=== PATIENT | male | born 1950 | race Caucasian/White ===

== ENCOUNTER 2017-08-07 18:07 | Observation (INO) | payer MEDICARE, OTHER, SELFPAY ==
[2017-08-07 18:10] VITALS: BP 164/72; PULSE 73; RESP 18; TEMP 37; O2SAT 98; BMI 38.7
--- NOTE | 2017-08-07 19:00 | CT_ITS ---
STUDY: CT BRAIN WITHOUT CONTRAST REASON FOR EXAM: Male, 67 years old. Fall. RADIATION DOSAGE (If Supplied By Facility): CTDIvol = ( 44.99 ) mGy, DLP = ( 880.47 ) mGycm TECHNIQUE: Transaxial CT imaging of the brain was performed without administration of intravenous contrast material. Individualized dose optimization techniques were used for this CT. COMPARISON: 07/09/2016. FINDINGS: Normal soft tissue structures. Normal calvarium. There is mild cerebral atrophy with widening of the extra-axial spaces and ventricular dilatation. There are areas of decreased attenuation within the white matter tracts of the supratentorial brain, consistent with microvascular disease changes. Normal basal ganglia and thalami. Normal brainstem. There is mild cerebellar atrophy. There is no intracranial hemorrhage. There are no findings of an acute ischemic infarction. Normal visualized paranasal sinuses. CT/Brain/Head without Contrast IMPRESSION: No acute abnormality. Mild atrophy and White matter disease. Electronically Signed: Ravin Torres MD at 19:46 EDT , Service support ,
--- NOTE | 2017-08-07 19:35 | RAD_ITS ---
STUDY: X-RAY - RIGHT KNEE REASON FOR EXAM: Male, 67 years old. Pain. Fall. TECHNIQUE: 3 view(s) of the knee. COMPARISON: None. FINDINGS: Normal visualized distal femur. Normal visualized proximal tibia and fibula. Normal proximal tibiofibular articulation. There is no demonstrated fracture. There is a total knee arthroplasty with grossly satisfactory appearance. The soft tissue structures are unremarkable. RAD/Knee 3 Views IMPRESSION: No acute fracture or dislocation. Electronically Signed: Ravin Torres MD at 20:01 EDT , Service support ,
[2017-08-07] MEDS: Diphth,Pertuss(Acell),Tet Vac 0.5 ML Vial IM (19:50)
[2017-08-07 21:41] VITALS: BP 140/82; PULSE 77; RESP 18; O2SAT 95
[2017-08-07 23:28] VITALS: BP 135/95; PULSE 75; RESP 18; O2SAT 94
[2017-08-07 23:29] VITALS: BP 135/95; PULSE 75; RESP 18; O2SAT 94
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
--- NOTE | 2017-08-07 23:45 | EKG12_ITS ---
Test Reason : AM EKG Blood Pressure : / mmHG Vent. Rate : 071 BPM Atrial Rate : 071 BPM P-R Int : 196 ms QRS Dur : 116 ms QT Int : 418 ms P-R-T Axes : 056 -37 076 degrees QTc Int : 454 ms Normal sinus rhythm Left axis deviation Left ventricular hypertrophy with QRS widening and repolarization abnormality Abnormal ECG When compared with ECG of 09-APR-2016 17:35, No significant change was found Confirmed by FLYNN CHRISTIANSEN, ELISA ([id number]), clinical editor BRIT CLEMENS ([id number]) on 08/21/2017 2:21:36 PM Referred By: SHANELLE Confirmed By:ELISA PRUETT MD
[2017-08-08] VITALS (12 sets, daily range): BP systolic 107–138; BP diastolic 72–86; PULSE 63–97; RESP 16–20; TEMP 36.4–36.9; O2SAT 84–98; BMI 41.1; BMI 41.2
[2017-08-08 00:22] LABS: Absolute Lymphocyte Count 2.83 X10^3/ul (0.83-4.51); Basophil# 0.03 X10^3/uL; Basophil% 0.3 % (0-1); Eosinophils% 2.7 % (0-5); Hematocrit 40.8 % (40-54); Hemoglobin 13.6 g/dl (13.0-16.5); Lymphocyte # 2.83 X10^3/ul (4.0); Mean Corp Hgb Conc 33.3 g/gl (32-36); Mean Corpuscular Hgb 28.4 pg (27.0-32.0); Mean Corpuscular Volume 85.2 fL (80-94); Monocyte# 1.14 X10^3/uL; Monocyte% 10.1 % (0-10); Neutrophil # 7.01 X10^3/uL (2.7-7.7); Neutrophil % 61.8 % (47-70); Platelet Count 230 K/mm3 (150-450); RBC Distribution Width CV 13.1 % (11.6-14.6); RBC Distribution Width SD 40.6 fl (35.1-43.9); Red Blood Count 4.79 M/mm3 (4.6-6.2); White Blood Count 11.3 K/mm3 (4.4-11.0)
--- NOTE | 2017-08-08 00:22 | CT_ITS ---
STUDY: CT CERVICAL SPINE WITHOUT CONTRAST REASON FOR EXAM: Male, 67 years old. Fell and trauma to the head RADIATION DOSAGE (If Supplied By Facility): CTDIvol = ( 35.12 ) mGy, DLP = ( 765.32 ) mGycm TECHNIQUE: High resolution transaxial imaging was performed without contrast material. Sagittal and coronal images were reconstructed. Individualized dose optimization techniques were used for this CT. COMPARISON: None FINDINGS: Straightening and reversal of normal cervical lordotic curvature. Mild anterior wedging of the cervical vertebra. There is anterior bridging osteophytes noted in the cervical spine. Disc space narrowing and partial fusion at multiple levels. Endplate degenerative changes at all levels. Uncovertebral joint and facet joint degenerative changes with multilevel neural foraminal narrowing including C3-C4, C4-C5, C5-C6 and C6-C7 levels. The atlantooccipital joints are within normal limits. Atlantodental index is within normal limits. No definite evidence of a skull base fractures. Partial opacification of the mastoid air cells. The right upper lobe nodules noted which needs further assessment with chest CT. Left-sided nodular densities in the parotid gland likely intraparotid lymph nodes IMPRESSION: Cervical spondylotic changes. No definite evidence for acute cervical spine fractures. Right upper lobe nodule which can be assessed with chest CT on a nonemergent basis Electronically Signed: Gaurav Beal, at 8:29 EDT Tel , Service support , CT/Spine Cervical without Contras
[2017-08-08 00:24] LABS: POSITIVE COUNT NO; POSITIVE DIFFERENTIAL NO; POSITIVE MORPHOLOGY NO
[2017-08-08 00:28] LABS: Anion Gap 7 (5-15); BUN 17 mg/dL (7-18); BUN/Creat Ratio 22.1 RATIO (10-20); Calcium,Total 8.8 mg/dL (8.5-10.1); Chloride 102 mmol/L (98-107); Creatinine, Serum 0.77 mg/dL (0.70-1.30); EST Glomerular Filtration Rate 107 mL/min (>60); Est Glom Filt Rate - Afr Amer 129 mL/min (>60); Glucose 104 mg/dL (74-106); Potassium 3.2 mmol/L (3.5-5.1); Sodium Level 139 mmol/L (136-145)
--- NOTE | 2017-08-08 00:36 | ED.DCSUM_ITS ---
- ER Visit Summary Date of Service: 08/08/17 Chief Complaint: Fall History of Present Illness: The patient is a 67 M who presents after a fall that occurred today. Patient was helping his son work on his car when he tripped and fell forward. Patient hit his right ear on the axle of the car wheel. Patient denies any loss of consciousness. Patient also complains of pain in his right knee and right leg. Patient denies any paresthesias or weakness. Patient states he has a prior history of stroke in his right side is weak from that but he denies any new weakness. Patient is on Plavix from his stroke. Patient denies any hearing changes. Patient is unsure of his last tetanus. Physical Examination: Vital signs are stable. Patient is afebrile. Patient is in no acute distress. Cranial nerves II through XII are intact. There are no focal motor or sensory deficits noted. Skin is warm and dry. There is a 2 cm curvilinear laceration along the anterior aspect of the right external ear. There is a 3 cm Y-shaped laceration along the posterior aspect of the right external ear. There is a 2 cm linear laceration posterior to the left ear near the mastoid process. There is minimal gapping of the wound margins. There is moderate bleeding noted. Tympanic membrane is clear. Neck is supple. Trachea is midline. There is no cervical tenderness. There is a large abrasion over the right shoulder. There is also an abrasion over the anterior lateral aspect of the right knee. There is a hematoma of the right anterior lower leg. There is full range of motion of the upper and lower extremities. There are no obvious deformities noted. Heart was regular rate and rhythm. Lungs are clear and equal bilateral. There is good respiratory effort noted. The remaining physical exam is within normal limits. Test Results: CT scan of the brain was obtained. There is no acute intracranial abnormality. X-rays of the right knee were obtained. There is no fracture noted. Emergency Department Course and Treatment: The right ear was anesthetized 1% plain lidocaine via auricular block. The laceration on the anterior aspect of the right ear was closed with 3 simple interrupted #5-0 nylon sutures under sterile technique. The laceration on the posterior aspect of the right ear was closed with 4 simple interrupted #5-0 nylon sutures. The laceration over the mastoid process was closed with 2 simple interrupted #5-0 nylon sutures under sterile technique. Patient tolerated the procedure well. During laceration repair patient was complaining of a headache and stated he would feel better if he was admitted to the hospital. Case was discussed with the hospitalist. He will admit the patient for observation overnight due to his head injury and being on Plavix. Patient and family understood and were agreeable with the plan. All questions were answered. Disposition: Admit for observation Impression: Closed head injury, right ear laceration, headache This note was generated with [employer] dictation software. It may contain incorrect words, spelling, and punctuation that were not noted in review of the chart prior to signing ED Disposition - Plan for ED Patient: Disposition: Acute Care Hospital [facility] Chief Complaint: Fall Diagnosis: Closed head injury, Headache, Laceration of right ear
[2017-08-08] MEDS: 0.9% Normal Saline 1,000 ML 75 ML IV (00:45)
[2017-08-08 00:53] LABS: International Normalized Ratio 1.2; Prothrombin Time (Protime)PT. 15.6 SECONDS (11.7-14.9)
--- NOTE | 2017-08-08 08:11 | PCM.PN.HOSP ---
Patient Problems: Active and Suspected Problems Closed head injury (Acute) Mechanical trip and fall (Acute) Laceration of left ear (Acute) Headache (Acute) Laceration of right ear (Acute) Subjective: Patient is a 67-year-old gentleman with previous history of left thalamic ischemic stroke with residual right leg weakness presented to the emergency department following a fall sustaining R ear laceration which had to be sutured in the emergency department Objective: GENERAL: cooperative HEENT: Head arrived in dressing for his right ear laceration NECK; supple, normal thyroid, CHEST: Clear to auscultation bilaterally, HEART: Regular S1 S2, no audible murmurs ABDOMEN: soft, non-tender, normoactive bowel sounds, RECTAL: deferred EXTREMITIES: No edema, no clubbing, no cyanosis. SOCIAL SERVICES COUNSELOR: Awake, oriented place and person SKIN: R ear laceration Vitals/I&O's: Vital Signs Temp Pulse Resp BP Pulse Ox 98.5 F 97 20 H 135/81 H 94 08/08/17 08:06 08/08/17 08:06 08/08/17 08:06 08/08/17 08:06 08/08/17 08:06 Oxygen Flow Rate (L/min) 2 Oxygen Delivery Method Nasal Cannula Weight: 130.181 kg Body Mass Index (BMI) 41.1 Intake and Output for Last 24 Hours 08/06/17 08/07/17 08/08/17 23:59 23:59 23:59 Intake Total 723 / 723 Output Total 125 / 125 Balance 598 / 598 Laboratory Results 08/08/17 00:00: WBC 11.3 H, RBC 4.79, Hgb 13.6, Hct 40.8, MCV 85.2, MCH 28.4, MCHC 33.3, RDW 13.1, RDW Differential 40.6, Plt Count 230, MPV 10.0, Immature Gran % (Auto) 0.100, Neut % (Auto) 61.8, Lymph % (Auto) 25.0, [place] % (Auto) 10.1 H, Eos % (Auto) 2.7, Baso % (Auto) 0.3, Absolute Neuts (auto) 7.0, Absolute Lymphs (auto) 2.83, Total Counted Not Reportable 08/08/17 00:00: Sodium 139, Potassium 3.2 L, Chloride 102, Carbon Dioxide 30.0, Anion Gap 7, BUN 17, Creatinine 0.77, Estim Creat Clear Calc 73.00, Est GFR (MDRD) Af Amer 129, Est GFR (MDRD) Non-Af 107, BUN/Creatinine Ratio 22.1 H, Glucose 104, Calcium 8.8 08/08/17 00:00: PT 15.6 H, INR 1.2, APTT 33.0 Current Medications Atorvastatin Calcium (Lipitor) 80 mg PO QHS [facility] Bupropion HCl (Wellbutrin Tablets) 150 mg PO DAILY [facility] Carvedilol (Coreg) 12.5 mg PO BID [facility] Cholecalciferol (Vitamin D) 3,000 unit PO DAILY [facility] Hydrochlorothiazide (Hydrochlorothiazide) 12.5 mg PO DAILY [facility] Sodium Chloride () 1,000 mls @ 75 mls/hr IV .[id number] [facility] Last Admin: 08/08/17 00:45 Dose: 75 mls/hr Magnesium Hydroxide (Milk Of Magnesia) 30 ml PO DAILY PRN PRN PRN Reason: Constipation Morphine Sulfate () 1 - 2 mg IV Q4H PRN PRN PRN Reason: SEVERE PAIN (6-10/10) Multivitamins/Minerals (Multivitamin With Minerals) 1 tablet [facility] Ondansetron HCl (Zofran) 4 mg IV Q8H PRN PRN PRN Reason: Nausea Oxycodone HCl (Oxyir) 5 mg PO Q4H PRN PRN PRN Reason: Moderate Pain (pain scale 4-5) Polyethylene Glycol (Miralax) 17 gm PO DAILY [facility] Psyllium Hydrophilic Mucilloid (Metamucil) 1 packet PO DAILY PRN PRN PRN Reason: CONSTIPATION Senna/Docusate Sodium (Senokot-S, Malika-Colace) 2 tablet PO BID PRN PRN PRN Reason: Constipation Sodium Chloride () 5 - 30 ml IV UD PRN PRN Reason: SALINE FLUSH Zolpidem Tartrate (Ambien (Generic)) 5 mg PO QHS PRN PRN PRN Reason: INSOMNIA Medical Necessity - Tobacco Use Smoking Status: Current every day smoker Assessment/Plan Active and Suspected Problems Closed head injury (Acute) Mechanical trip and fall (Acute) Laceration of left ear (Acute) Headache (Acute) Laceration of right ear (Acute) Patient is a 67-year-old gentleman with previous history of left thalamic ischemic stroke with residual right leg weakness presented to the emergency department following a fall sustaining R ear laceration which had to be sutured in the emergency department 1. Falls secondary to mechanical fall with weight right ear laceration status post suturing in the ED admitted to regular nursing floor requested for PT and OT consult to psychotherapist social worker to assist with discharge planning 2. Left thalamic ischemic stroke with residual right leg weakness patient is on antiplatelet therapy with Plavix 3. Hypertension-blood pressure controlled, home medications continued with dose adjustment as needed 4. Depression with anxiety 5. Dyslipidemia-patient is on statin therapy, continued at home dose 6. History of bilateral TKR 7. Obesity with BMI of 41.2 weight loss advised 8. PTSD per history 9. DVT prophylaxis SCDs to the use of chemoprophylaxis on admission in view of his laceration
--- NOTE | 2017-08-08 09:42 | CASEMGMT ---
Social Work Note Face to face with the pt to discuss discharge planning. Introduced self and role at [facility]. The pt reports to live with his , who is to retire in a month, in a one-story home with 2 entry steps and handrails. DME consists of a walker, 3 canes, grab bars, and shower chair. Pt reports to be independent with ADL's and still drives. States that he exercises on his stationary bike and with resistance bands daily, but that he does not feel he does enough for leg strength. Pt does have a hx of stroke and was on the RU. Expresses frustration with them as he had [employer] at the time and states they did not cover any of that stay. Emotional support provided. [facility] [place] [facility] to [facility]. Inquire if he would be willing to go to SNF if recommended by PT/OT. Pt states he would prefer to go home, reports to have only had one fall in the last month. Educate pt to HHC and Outpatient therapy if recommended as well. Pt expresses interest in outpatient therapy and he and both state they had HHC in the past and too many services that were not helpful were included. They would like to await PT/OT evaluations and recommendations before continuing with discharge planning. Both made aware that SW is available. Plan: BALJIT Montano, JACKER, WATCH LEADER
[2017-08-08] MEDS: Multivitamins,Ther W-Minerals Tablet 1 TABLET PO ×2 (11:21→18:36)
[2017-08-08] MEDS: Polyethylene Glycol 3350 17 GM PACKET PO (11:23)
[2017-08-08] MEDS: Carvedilol 12.5 MG Tablet PO ×2 (11:23→22:31)
[2017-08-08] MEDS: HYDROCHLOROTHIAZIDE 12.5 MG CAPSULE PO (11:23)
--- NOTE | 2017-08-08 11:44 | CASEMGMT ---
Social Work Note PT/OT recommending home or outpatient therapy. Outpatient therapy order placed on chart for attending physician to sign and be sent home with pt at discharge if they elect to seek therapy. Physician notified. Celsa Montano, PROMOTIONS SPECIALIST, BUSINESS MANAGEMENT ASSOCIATE
--- NOTE | 2017-08-08 16:25 | NURSING ---
attempted to call Alis to clarify home medication wellbutrin. no answer and no voicemail option.
[2017-08-08] MEDS: Nystatin Powder 15gm Bottle 1 APPLIC TOPICAL (22:30)
[2017-08-08] MEDS: Atorvastatin Calcium 80 MG Tablet PO (22:31)
[2017-08-09 02:00] VITALS: PULSE 79
[2017-08-09 03:19] VITALS: BP 108/60; PULSE 61; RESP 16; TEMP 36.5; O2SAT 96
[2017-08-09 05:49] VITALS: PULSE 53
--- NOTE | 2017-08-09 07:29 | PCM.DC ---
- Discharge Diagnoses Current Active Problems: Current Active and Chronic Problems Closed head injury (Acute) Mechanical trip and fall (Acute) Laceration of left ear (Acute) Headache (Acute) Laceration of right ear (Acute) You will use the following diet at home:: Regular Your food should be the consistency of: Regular Discharge Activity: Return to Normal Activity Allergies/Adverse Reactions: Allergies lisinopril Adverse Reaction (Verified 08/07/17 18:09) Other ANXIETY/HOT FLASHES losartan Adverse Reaction (Verified 08/07/17 18:09) Other Anxiety/hot flashes Medications to take at Discharge Bupropion HCl 150 mg PO DAILY 04/09/16 Carvedilol [Coreg] 12.5 mg PO BID 04/09/16 Multivitamin with Minerals/Lut [Pub Multivitamin 50 Plus Tab] 1 each PO BID 04/09/16 Aspirin [Aspirin, Baby] 81 mg PO DAILY@0800 04/15/16 Atorvastatin Calcium [Lipitor] 80 mg PO QHS 02/17/17 Cholecalciferol (Vitamin D3) [Vitamin D3] 3,000 unit PO DAILY 02/17/17 Clopidogrel Bisulfate [Plavix] 75 mg PO DAILY 08/08/17 Hydrochlorothiazide 12.5 mg PO DAILY 08/08/17 Primary Care Physician: Marilin Gold MD [Primary Care Provider] - Please follow up with your Primary Care Physician in: in 4-5 days for removal of stitches Proposed Discharge Date: 08/09/17
--- NOTE | 2017-08-09 07:31 | PCM.DC.SUM ---
Discharge Date and Diagnosis - Problem List Patient Problems: Active and Suspected Problems Closed head injury (Acute) Mechanical trip and fall (Acute) Laceration of left ear (Acute) Headache (Acute) Laceration of right ear (Acute) Date of Admission: 08/08/17 Date of Discharge: 08/09/17 - Primary Discharge Diagnosis Active and Suspected Problems Closed head injury (Acute) Mechanical trip and fall (Acute) Laceration of left ear (Acute) Headache (Acute) Laceration of right ear (Acute) - Secondary Discharge Diagnosis Chronic Problems Hypertension (Chronic) PTSD (post-traumatic stress disorder) (Chronic) Anxiety and depression (Chronic) Acute ischemic stroke (Chronic) Obesity (BMI 30-39.9) (Chronic) Hospital Course and Treatment Imaging Results: Clinical Impression(s) from Imaging Studies Brain CT 08/07/17 19:00 IMPRESSION: No acute abnormality. Mild atrophy and White matter disease. Electronically Signed: Ravin Torres MD at 19:46 EDT , Service support , Knee X-Ray 08/07/17 19:35 IMPRESSION: No acute fracture or dislocation. Electronically Signed: Ravin Torres MD at 20:01 EDT , Service support , Cervical Spine CT 08/08/17 00:22 Operations: None Summary of Care Provided: Patient is a 67-year-old gentleman with previous history of left thalamic ischemic stroke with residual right leg weakness presented to the emergency department following a fall sustaining R ear laceration which had to be sutured in the emergency department 1. Falls secondary to mechanical fall with weight right ear laceration status post suturing in the ED admitted to regular nursing floor requested for PT and OT consult to social media analyst to assist with discharge planning patient was discharged home instructions given to you for him to follow-up with his primary care physician for stitches removal within 3-5 days 2. Left thalamic ischemic stroke with residual right leg weakness patient is on antiplatelet therapy with Plavix 3. Hypertension-blood pressure controlled, home medications continued with dose adjustment as needed 4. Depression with anxiety 5. Dyslipidemia-patient is on statin therapy, continued at home dose 6. History of bilateral TKR 7. Obesity with BMI of 41.2 weight loss advised 8. PTSD per history 9. DVT prophylaxis SCDs to the use of chemoprophylaxis on admission in view of his laceration Discharge Diet: No Restrictions Discharge Activity: Return to Normal Activity Home Medications: Medications to take at Discharge Bupropion HCl 150 mg PO DAILY 04/09/16 Carvedilol [Coreg] 12.5 mg PO BID 04/09/16 Multivitamin with Minerals/Lut [Pub Multivitamin 50 Plus Tab] 1 each PO BID 04/09/16 Aspirin [Aspirin, Baby] 81 mg PO DAILY@0800 04/15/16 Atorvastatin Calcium [Lipitor] 80 mg PO QHS 02/17/17 Cholecalciferol (Vitamin D3) [Vitamin D3] 3,000 unit PO DAILY 02/17/17 Clopidogrel Bisulfate [Plavix] 75 mg PO DAILY 08/08/17 Hydrochlorothiazide 12.5 mg PO DAILY 08/08/17 Primary Care Physician: Marilin Gold MD [Primary Care Provider] - Please follow up with your Primary Care Physician in: in 4-5 days for removal of stitches Disposition: Home Minutes spent on discharge:: 35 Patient Condition:: Stable Medical Necessity - Tobacco Use Smoking Status: Current every day smoker Meaningful Use Info Meaningful Use Diagnoses (Choose all that apply): None applicable Code Visit OBSV E&M: 30752 Observation care discharge
[2017-08-09 08:38] LABS: Anion Gap 5 (5-15); BUN 14 mg/dL (7-18); Calcium,Total 8.5 mg/dL (8.5-10.1); Chloride 104 mmol/L (98-107); Creatinine, Serum 0.78 mg/dL (0.70-1.30); EST Glomerular Filtration Rate 105 mL/min (>60); Est Glom Filt Rate - Afr Amer 127 mL/min (>60); Glucose 107 mg/dL (74-106); Potassium 3.8 mmol/L (3.5-5.1); Sodium Level 139 mmol/L (136-145)
[2017-08-09 09:19] VITALS: BP 107/72; PULSE 79; RESP 20; TEMP 36.6; O2SAT 98
[2017-08-09] MEDS: Multivitamins,Ther W-Minerals Tablet 1 TABLET PO (09:46)
[2017-08-09] MEDS: Nystatin Powder 15gm Bottle 1 APPLIC TOPICAL (09:46)
[2017-08-09] MEDS: Carvedilol 12.5 MG Tablet PO (09:46)
[2017-08-09] MEDS: HYDROCHLOROTHIAZIDE 12.5 MG CAPSULE PO (09:47)
== END 2017-08-09 10:25 | disposition home or self-care (01) ==
LOC: ED 19:46 → MS3 23:56
PROVIDERS: Admitting Provider Internal Medicine; Emergency Provider Emergency Medicine; Family Provider Family Medicine; PCP Family Medicine; Visit Provider Internal Medicine
DX: S09.8XXA Other specified injuries of head, initial encounter (principal); W01.198A Fall on same level from slipping, tripping and stumbling with subsequent striking against other object, initial encounter; Y93.89 Activity, other specified; Y92.9 Unspecified place or not applicable; S01.312A Laceration without foreign body of left ear, initial encounter; S01.311A Laceration without foreign body of right ear, initial encounter; Z23 Encounter for immunization; I69.351 Hemiplegia and hemiparesis following cerebral infarction affecting right dominant side; Z79.02 Long term (current) use of antithrombotics/antiplatelets; I10 Essential (primary) hypertension; E66.9 Obesity, unspecified; Z68.41 Body mass index [BMI] 40.0-44.9, adult; Z71.3 Dietary counseling and surveillance; F32.9 Major depressive disorder, single episode, unspecified; F41.9 Anxiety disorder, unspecified; F43.12 Post-traumatic stress disorder, chronic; S40.011A Contusion of right shoulder, initial encounter; S80.01XA Contusion of right knee, initial encounter; F17.210 Nicotine dependence, cigarettes, uncomplicated
CPT/HCPCS: 12014; 36415; 70450; 72125; 73562; 80048; 85025; 85610; 85730; 90471; 90715; 93005; 96360; 96361; 97161; 97166; 97802; 99218; 99283; 99406; J7030; A4216; G0378

== ENCOUNTER 2017-10-07 11:13 | Emergency (ER) | payer MEDICARE, SELFPAY ==
[2017-10-07 11:14] VITALS: BP 122/65; PULSE 79; RESP 18; TEMP 36.6; O2SAT 94; BMI 42.3
--- NOTE | 2017-10-07 11:25 | RAD_ITS ---
STUDY: X-RAY CHEST REASON FOR EXAM: Male, 67 years old. Cough. History of bronchitis. TECHNIQUE: PA and lateral views of the chest on 3 films. COMPARISON: [facility] upright chest x-ray April 09, 2016. FINDINGS: Again seen is ill-defined, mixed interstitial alveolar density in the medial lung bases, reflecting inflammatory change/infection with possible superimposed atelectasis versus localized pulmonary vascular congestion. There is no demonstrated pleural abnormality. Normal size heart. Normal mediastinum and awa. Normal visualized upper lobe pulmonary vascular markings. There is stable mild atherosclerotic calcification of the aortic arch. There are stable multilevel degenerative changes of the visualized thoracic spine. Normal visualized ribs, clavicles, and shoulders. There is no demonstrated abnormality of the visualized soft tissue structures of the upper abdomen. RAD/Chest PA and Lateral IMPRESSION: Persistent/recurrent mixed interstitial and alveolar densities in the medial bilateral lung bases. Electronically Signed: Ghulam Vences MD at 12:26 EDT , Service support ,
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
--- NOTE | 2017-10-07 13:00 | ED.DEP ---
ED Disposition - Plan for ED Patient: Disposition: Home or Assisted Living Chief Complaint: Fall Instructions: ED Mechanical Fall, ED Abrasion, Acute Bronchitis Prescriptions: Azithromycin [Zithromax] 250 mg PO DAILY #4 tablet Referrals: Marilin Gold MD [Primary Care Provider] - 1 Week
[2017-10-07] MEDS: Azithromycin 250 MG Tablet 500 MG PO (13:12)
[2017-10-07 13:13] VITALS: BP 138/75; PULSE 72; RESP 20; O2SAT 94
[2017-10-07 13:16] VITALS: BP 138/75; PULSE 65; RESP 20; O2SAT 94
== END 2017-10-07 13:17 | disposition home or self-care (01) ==
PROVIDERS: Emergency Provider Emergency Medicine; Family Provider Family Medicine; PCP Family Medicine
DX: S30.811A Abrasion of abdominal wall, initial encounter (principal); W18.39XA Other fall on same level, initial encounter; Y93.9 Activity, unspecified; Y92.9 Unspecified place or not applicable; J40 Bronchitis, not specified as acute or chronic; E66.9 Obesity, unspecified; Z68.41 Body mass index [BMI] 40.0-44.9, adult; F43.10 Post-traumatic stress disorder, unspecified; F41.9 Anxiety disorder, unspecified; Z79.01 Long term (current) use of anticoagulants; Z86.73 Personal history of transient ischemic attack (TIA), and cerebral infarction without residual deficits; Z79.82 Long term (current) use of aspirin; Z79.899 Other long term (current) drug therapy; Z72.0 Tobacco use
CPT/HCPCS: 71046; 99282

== ENCOUNTER → 2019-03-29 14:26 | Outpatient (CLI) | payer MEDICARE, SELFPAY ==
--- NOTE | 2019-03-29 14:29 | CT_ITS ---
STUDY: CT CHEST WITH CONTRAST REASON FOR EXAM: Male, 68 years old. Pulmonary nodule follow-up RADIATION DOSAGE (If Supplied By Facility): CTDIvol = ( 18.25 ) mGy, DLP = ( 659.13 ) mGycm TECHNIQUE: Transaxial imaging was performed following intravenous administration of 100ML ISOVUE 370. Multiplanar coronal and sagittal images were reformatted. Individualized dose optimization techniques were used for this CT. COMPARISON: None. FINDINGS: 3 mm noncalcified smoothly marginated nodule in the posterior right upper lobe is evident on image 13. Similar density nodule in the upper portion of the left lower lobe on image 27 measures 2-3 mm. 3 mm nodule in the lateral right lower lobe is evident on image 54. Scattered areas of groundglass opacity (amorphous type) are identified in multiple pulmonary lobes with regional areas of lucency (mosaic attenuation). There is a granuloma (punctate) in the right upper lobe. No suspicious noncalcified pulmonary nodule or localized groundglass opacity. There is no demonstrated pleural abnormality. Heart is mildly enlarged. No pericardial thickening. There are calcifications of the coronary arteries. There are multiple small lymph nodes within the mediastinum, which are normal in size and morphology most compatible with reactive lymph hyperplasia. Normal hilar regions. Normal enhanced pulmonary arteries. There is atherosclerotic calcification of the aortic arch with tortuosity and elongation of the aortic arch and descending thoracic aorta. There are multi-level degenerative changes of the thoracic spine. Adrenal glands are not focally enlarged. Calcification in the left hepatic lobe is likely postinflammatory. CT/Chest WITH Contrast IMPRESSION: 1. Right upper, right lower and left lower lobe pulmonary nodules measuring up to 3 mm. Follow-up CT in one year if patient considered high risk (smoking history, known history of cancer) according to Fleischner Society recommendations. 2. Scattered groundglass opacities/mosaic attenuation can be associated with hypoventilatory status, edema or pneumonitis/bronchiolitis. Electronically Signed: Pavel Guidry MD ([place]) at 19:37 EST , Service support ,
[2019-03-29 14:51] LABS: CREATININE FINGERSTICK 0.8 mg/dL (0.70-1.30)
== END ==
PROVIDERS: Family Provider Family Medicine; PCP Family Medicine; Referring Provider Family Medicine; Visit Provider Family Medicine
DX: R91.1 Solitary pulmonary nodule (principal)
CPT/HCPCS: 71260; Q9967

== ENCOUNTER 2020-02-08 16:49 | Emergency (ER) | payer MEDICARE, SELFPAY ==
[2020-02-08 16:51] VITALS: BP 142/89; PULSE 81; RESP 17; TEMP 36.3; O2SAT 95; BMI 40.1
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
[2020-02-08 18:06] VITALS: BP 139/78; PULSE 81; RESP 16; O2SAT 99
== END 2020-02-08 18:06 | disposition home or self-care (01) ==
LOC: ED 17:16
PROVIDERS: Emergency Provider Emergency Medicine; PCP Family Medicine
DX: S61.210A Laceration without foreign body of right index finger without damage to nail, initial encounter (principal); W26.8XXA Contact with other sharp object(s), not elsewhere classified, initial encounter; Y93.9 Activity, unspecified; Y92.9 Unspecified place or not applicable; Y99.9 Unspecified external cause status; I10 Essential (primary) hypertension; Z79.82 Long term (current) use of aspirin; Z87.891 Personal history of nicotine dependence; Z86.73 Personal history of transient ischemic attack (TIA), and cerebral infarction without residual deficits
CPT/HCPCS: 12001; 99282

== ENCOUNTER 2020-06-19 09:00 | Outpatient (RCR) | payer MEDICARE, SELFPAY ==
[2020-06-19] MEDS: COVID-19 VACC, MRNA(PFIZER)/PF 30 MCG/0.3 ML SYRINGE IM (17:29)
[2020-07-10] MEDS: COVID-19 VACC, MRNA(PFIZER)/PF 30 MCG/0.3 ML SYRINGE IM (15:36)
== END 2020-09-18 23:59 ==
LOC: IMMUN 09:00
PROVIDERS: PCP Family Medicine; Visit Provider Family Medicine
DX: Z23 Encounter for immunization (principal)
CPT/HCPCS: 0001A; 0002A; 91300

== ENCOUNTER 2020-06-19 15:48 | Emergency (ER) | payer MEDICARE, SELFPAY ==
[2020-06-19 15:50] VITALS: BP 128/82; PULSE 58; RESP 18; TEMP 37.1; O2SAT 94; BMI 44.1
--- NOTE | 2020-06-19 16:15 | CT_ITS ---
STUDY: CT BRAIN WITHOUT CONTRAST REASON FOR EXAM: Male, 70 years old. Head trauma RADIATION DOSAGE (If Supplied By Facility): CTDIvol = ( 60.81 ) mGy, DLP = ( 2225.39 ) mGycm TECHNIQUE: Transaxial CT imaging of the brain was performed without administration of intravenous contrast material. Individualized dose optimization techniques were used for this CT. COMPARISON: 08/07/17 FINDINGS: There is no acute bleed or infarct. There are stable chronic ischemic and atrophic changes. The ventricles are normal in configuration. There is no hydrocephalus. The visualized paranasal sinuses are clear. The mastoid air cells are well aerated. There is no skull fracture. There is mild scalp soft tissue swelling in the right frontal region. CT/Brain/Head without Contrast IMPRESSION: Stable chronic ischemic and atrophic changes. No acute intracranial abnormality. Mild scalp soft tissue swelling in the right frontal region. Electronically Signed: Nele Somers MD at 17:06 EST Tel , Service support ,
--- NOTE | 2020-06-19 16:18 | ED.VISSUMM ---
- ER Visit Summary Date of Service: 06/19/20 Chief Complaint: Tripped and fell causing a head injury History of Present Illness: The patient is a 70 M history of heart murmur and prior stroke. He is on aspirin but no other blood thinners. Patient was walking down the sidewalk when he tripped and fell struck his right forehead on the sidewalk. Denies any LOC. No significant headache. No neck pain. No LOC. He also hit his left knee but says it does not hurt. He denies any other complaints. Said he felt fine prior to the fall. Physical Examination: Older male no acute distress vital signs stable afebrile. HEENT exam shows a right forehead moderate sized hematoma and abrasion. Superficial laceration right eyebrow. Most likely will not need to be sewn. Pupils round reactive light extra motions are intact. No other facial trauma. No scalp trauma. C-spine nontender. Trachea midline. Lungs clear to auscultation bilaterally. Heart regular rhythm no murmur. Chest were nontender. Abdomen soft nontender normal bowel sounds no peritoneal signs. Patient is moving all 4 extremities. Neurovascular intact. 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 Dorsi plantarflexion intact. He has a mild abrasion on his left knee but has full flexion-extension of both hips, knees ankle and feet. There is no shortening or rotation. His knee is not specifically tender. Back nontender. Neurologically is awake alert with no focal motor deficits. GCS of 15. NIH is 0. Test Results: CAT scan of the brain without contrast as read by the radiologist shows right forehead contusion. No skull fracture. No acute intracranial bleed. Chronic changes. This was read by the radiologist and reviewed by me. Reyes exam patient is doing well at 5:21 PM. Be discharged home. Emergency Department Course and Treatment: Older male tripped and fell has a right forehead moderate sized contusion which will need imaging. He has a mild abrasion of his left knee but has normal range of motion is not tender. Otherwise exam unremarkable. Treatment Plan: Head injury instructions. Tylenol for pain. Keep wounds clean. Disposition: discharge Impression: Acute fall with closed head injury Forehead hematoma and abrasion Left knee abrasion This note was generated with [employer] dictation software. It may contain incorrect words, spelling, and punctuation that were not noted in review of the chart prior to signing ED Disposition - Plan for ED Patient: Referrals: Marilin Gold MD [Primary Care Provider] -
--- NOTE | 2020-06-19 17:22 | ED.DEP ---
ED Disposition - Plan for ED Patient: Disposition: Home or Assisted Living Instructions: ED Head Injury (Adult) Referrals: Marilin Gold MD [Primary Care Provider] - 1 Week if not improving Additional Instructions: All for pain. Keep wounds clean and apply antibiotic ointment. Tylenol for pain. Follow head injury instructions if you get a severe headache, vomiting or not acting right you need to return emergency department for repeat evaluation.
== END 2020-06-19 18:01 | disposition home or self-care (01) ==
PROVIDERS: Emergency Provider Emergency Medicine; PCP Family Medicine
DX: S00.83XA Contusion of other part of head, initial encounter (principal); W01.0XXA Fall on same level from slipping, tripping and stumbling without subsequent striking against object, initial encounter; Y93.01 Activity, walking, marching and hiking; Y92.480 Sidewalk as the place of occurrence of the external cause; S00.81XA Abrasion of other part of head, initial encounter; S80.212A Abrasion, left knee, initial encounter; Z86.73 Personal history of transient ischemic attack (TIA), and cerebral infarction without residual deficits; Z79.82 Long term (current) use of aspirin
CPT/HCPCS: 70450; 99282

== ENCOUNTER 2020-06-21 09:50 | Emergency (ER) | payer MEDICARE, SELFPAY ==
[2020-06-21 09:51] VITALS: BP 151/71; PULSE 82; RESP 15; TEMP 36.2; O2SAT 93; BMI 38.4
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
== END 2020-06-21 11:35 | disposition home or self-care (01) ==
LOC: ED 10:42
PROVIDERS: Emergency Provider Emergency Medicine; PCP Family Medicine
DX: S00.83XA Contusion of other part of head, initial encounter (principal); W19.XXXA Unspecified fall, initial encounter; Z86.73 Personal history of transient ischemic attack (TIA), and cerebral infarction without residual deficits; Z87.891 Personal history of nicotine dependence
CPT/HCPCS: 99282

== ENCOUNTER 2021-08-27 13:29 | Outpatient (RCR) | payer MEDICARE, SELFPAY ==
[2021-08-27 13:45] VITALS: BP 118/58; PULSE 48; TEMP 36.5; BMI 41.3
--- NOTE | 2021-08-27 16:25 | PCM.WC.HP ---
History of Present Illness Date of Service: 08/27/21 Chief Complaint: Buttock pain and excoriation. History of Wound: 71 year old male presents with excoriation and pain of his right buttocks. Patient has decreased mobility, therefore he sits for long periods of time without off-loading. He walks with a cane or walker and will use a wheelchair if he is going out in public. He has a history of stroke in 2016 and bilateral knee replacements. He also has a history of PTSD. He does have some issues with urinary incontinence. His has been placing A&D ointment and ketoconazole onto the excoriated area. He denies fever, chills, nausea, vomiting, diarrhea. He states he has a good appetite. Progress of Wound: Bilateral buttocks are excoriated, no actual open wounds. Skin is pink with areas of slough. [facility] Home Medications Multivitamin 50 Plus 1 ea PO BID 04/09/16 [History Last Taken 08/07/17 09:00 1 tab] aspirin 81 mg PO DAILY@0800 04/15/16 [History Last Taken 08/07/17 09:00 81 mg] atorvastatin [Lipitor] 20 mg PO QHS 02/17/17 [History Last Taken 08/06/17 21:00 80 mg] cholecalciferol (vitamin D3) [Vitamin D3] 3,000 unit PO DAILY 02/17/17 [History Last Taken 08/07/17 09:00 3,000 units] hydrochlorothiazide 12.5 mg PO DAILY 08/08/17 [History Last Taken 08/07/17 09:00 12.5mg] bupropion HCl 150 mg PO DAILY 08/09/17 [History Last Taken Unknown] buspirone 5 mg PO DAILY 08/27/21 [History Last Taken Unknown] carvedilol 25 mg PO BID 08/27/21 [History Last Taken Unknown] tamsulosin 0.4 mg PO BID 08/27/21 [History Last Taken Unknown] Allergy/AdvReac Type Severity Reaction Status Date / Time lisinopril AdvReac Other Verified 06/21/20 09:53 losartan AdvReac Other Verified 06/21/20 09:53 Social History Smoking Status: Never smoker ROS Constitutional Constitutional: Denies fatigue, fever(s), frequent falls or headache(s) ENT HEENT: Reports none Cardiovascular Cardiovascular: Denies chest pain Respiratory/Chest Respiratory/Chest: Denies cough or difficulty clearing secretions Gastrointestinal Gastrointestinal: Denies abdominal pain Neurologic Neurologic: Reports abnormal gait; Denies confusion Vital Signs Vital Signs Vital Signs: 08/27/21 13:45 Temperature 97.7 F L Temperature Source Temporal Pulse Rate 48 L Blood Pressure 118/58 L Blood Pressure Mean 78 Blood Pressure Source Monitor Weight Weight: 280 lb Body Mass Index (BMI) 41.3 Physical Exam Const alert and no apparent distress General Appearance: cooperative Orientation / Consciousness: awake HEENT normocephalic Resp normal respiratory effort, normal air movement and clear to auscultation bilaterally Effort and Inspection: able to speak in complete sentences Cardio regular rate and regular rhythm GI normal to inspection, nondistended, normoactive bowel sounds, soft to palpation and non-tender Extremity normal capillary refill Skin Wound Narrative: Bilateral buttocks skin is pink, excoriated, there are no open wounds. The skin is irritated but intact. Neuro moves all extremities Psych mental status grossly normal Debridement Note Debridement Note No debridement was completed: No debridement was completed today Charges/Coding Visit Charges Office Visits / Consults: [id number] OV L3 Est Assessment/Plan Assessment/Plan (1) Excoriation of multiple sites of buttock: CODE(S): S30.810A - Abrasion of lower back and pelvis, initial encounter (2) Decreased mobility: CODE(S): R26.89 - Other abnormalities of gait and mobility (3) History of stroke: CODE(S): Z86.73 - Personal history of transient ischemic attack (TIA), and cerebral infarction without residual deficits PLAN: Patient was evaluated at the wound healing center today. There is no open wound present. He has pink excoriation of his bilateral buttocks. This is most likely from sitting for prolong periods of time and also having some urinary incontinence. Instructed him and his to wash area with soap and water daily, dry well and apply A&D ointment 1-2 times per day as a barrier cream. He is to follow up with his urologist to discuss his incontinence issues. Instructed patient that he should off load/change position and/or stand every 30 minutes while awake. Follow up on an as needed basis or if he develops an open wound.
== END 2021-08-27 14:09 | disposition home or self-care (01) ==
LOC: WC 13:29
PROVIDERS: PCP Family Medicine; Visit Provider Nurse Practitioner Family
DX: S30.810A Abrasion of lower back and pelvis, initial encounter (principal); R32 Unspecified urinary incontinence; R26.89 Other abnormalities of gait and mobility; Z79.82 Long term (current) use of aspirin; Z79.899 Other long term (current) drug therapy; Z86.73 Personal history of transient ischemic attack (TIA), and cerebral infarction without residual deficits; X58.XXXA Exposure to other specified factors, initial encounter
CPT/HCPCS: 99213; G0463

== ENCOUNTER 2022-01-13 13:58 | Outpatient (CLI) | payer MEDICARE, SELFPAY ==
[2022-01-13 18:24] LABS: Microalbumin,Random Urine < 5.0 mg/L (NO RANGE EST.)
[2022-01-13 18:29] LABS: Hemoglobin A1c 5.9 % (3.8-5.6)
[2022-01-13 18:42] LABS: AST(SGOT) 21 U/L (15-37); Alanine Aminotransfer ALT/SGPT 24 U/L (16-61); Anion Gap 8 (5-15); BUN 18 mg/dL (7-18); BUN/Creat Ratio 22.4 RATIO (10-20); Calcium,Total 8.9 mg/dL (8.5-10.1); Chloride 101 mmol/L (98-107); Cholesterol 97 mg/dL (200); EST Glomerular Filtration Rate 100 mL/min (>60); Est Glom Filt Rate - Afr Amer 121 mL/min (>60); Glucose 98 mg/dL (74-106); High Density Lipoprotein 36 mg/dL; Potassium 3.2 mmol/L (3.5-5.1); Sodium Level 140 mmol/L (136-145); Triglycerides 136 mg/dL; Very Low Density Lipoprotein 27 mg/dL (5-40)
== END 2022-01-13 23:59 | disposition home or self-care (01) ==
LOC: MFPLAB 14:00
PROVIDERS: PCP Family Medicine; Visit Provider Family Medicine
DX: E78.00 Pure hypercholesterolemia, unspecified (principal); I10 Essential (primary) hypertension; E66.9 Obesity, unspecified
CPT/HCPCS: 36415; 80048; 80061; 82043; 82570; 83036; 84450; 84460

== ENCOUNTER 2022-07-22 17:55 | Emergency (ER) | payer MEDICARE, SELFPAY ==
[2022-07-22 17:56] VITALS: BP 125/52; PULSE 63; RESP 15; TEMP 36.7; O2SAT 94
--- NOTE | 2022-07-22 18:26 | EDS_ITS ---
HPI HPI - Fall History of Present Illness Chief Complaint: Fall Narrative Narrative: 72-year-old male here for mechanical fall from standing. Notes skin tear below right eye and back pain. States mid to lower back pain is constant, severe worse with movement and palpation patient denies any saddle anesthesia, urinary tension, bowel or bladder incontinence, lower extremity weakness, fever or IV drug use, no recent spinal manipulation or surgery, no recent urinary catheterization. PFSH [facility] Medical History (Updated 07/22/22 @ 23:[address] Zully Moya, DO) Acute eczema HLD (hyperlipidemia) HTN (hypertension) Stroke Home Medications eqoiljpjjkcu-okqxifgr-kjgrce tablet (Multivitamin 50 Plus tablet) 1 ea PO BID supplement 04/09/16 [History Last Taken 08/07/17 09:00 1 tab] aspirin 81 mg chewable tablet 81 mg PO DAILY@0800 heart 04/15/16 [History Last Taken 08/07/17 09:00 81 mg] atorvastatin 80 mg tablet (Lipitor) 20 mg PO QHS cholesterol 02/17/17 [History Last Taken 08/06/17 21:00 80 mg] cholecalciferol (vitamin D3) 25 mcg (1,000 unit) capsule (Vitamin D3) 3,000 unit PO DAILY Supplement 02/17/17 [History Last Taken 08/07/17 09:00 3,000 units] hydrochlorothiazide 12.5 mg capsule 12.5 mg PO DAILY Bp 08/08/17 [History Last Taken 08/07/17 09:00 12.5mg] bupropion HCl 150 mg 24 hr tablet, extended release 150 mg PO DAILY 08/09/17 [History Last Taken Unknown] buspirone 5 mg tablet 5 mg PO DAILY 08/27/21 [History Last Taken Unknown] carvedilol 25 mg tablet 25 mg PO BID 08/27/21 [History Last Taken Unknown] tamsulosin 0.4 mg capsule 0.4 mg PO BID 08/27/21 [History Last Taken Unknown] Allergy/AdvReac Type Severity Reaction Status Date / Time lisinopril AdvReac Other Verified 07/22/22 17:59 losartan AdvReac Other Verified 07/22/22 17:59 Social History Smoking Status: Former smoker ROS ROS ED ROS Narrative Constitutional: Denies fever HEENT: Denies sore throat Neck: Denies neck pain Cardiovascular: Denies chest pain, syncope Respiratory: Denies shortness of breath GI: Denies nausea vomiting or abdominal pain : Denies changes in urinary habits Musculoskeletal: Endorses back pain Neurologic: Denies numbness weakness or loss of sensation Skin denies rash EXAM Physical Exam Narrative Exam Narrative: Primary Survey Airway: Intact Breathing: Bilateral breath sounds Circulation: Palpable bilateral femorals, Palpable bilateral radial, Palpable bilateral DP and Palpable bilateral PT Disability / Spine precautions GCS Score: Eye Openin Verbal Response: 5 Motor Response: 6 Secondary Survey Constitutional: Please see MDM Head: Abrasion noted to the right zygomatic process, midface stable, NO jaw malocclusion, No Cephalohematoma, and No Lacerations noted Eye: Pupils equal round and reactive to light, Extraocular muscles intact and No periorbital ecchymosis or stepoff, no evidence of entrapment ENT: Oropharynx clear, no lacerations, no hemotympanum, no raccoon eyes or brothers sign Cervical spine / Neck: Slight C-spine tenderness but no step-offs or deformities noted crepitance, Trachea midline Lungs: Clear to auscultation, No asymmetric rise and No crepitus, no flail chest Cardiac: Regular rate and rhythm and No murmurs Abdomen: Soft, Nontender and No rebound Pelvis: Pelvis stable to compression : No evidence of genital injury Back: TTP over thoracic and lumbar spine, no step-offs or deformities Neuro: At baseline, intact strength and sensation in bilateral upper and lower extremities. 2+ patellar reflexes bilaterally. Intact sensation L1-S1 dermatomal distributions. Intact 5/5 strength in hip flexion (T12-L3). Knee extension (L2-L4). Ankle dorsiflexion (L4-L5). Ankle plantar flexion (S1). Great toe extension (L5). 2+ patellar and Achilles DTRs. Extremities: NO gross Deformities Psych: Normal affect Nursing triage notes reviewed, Vital signs reviewed Const Vital Signs: 07/22/22 17:56 07/22/22 18:31 07/22/22 21:42 Temperature 98.1 F Temperature Source Temporal Pulse Rate 63 68 Respiratory Rate 15 18 Respiratory Effort Normal Non-Labored Blood Pressure 125/52 H Blood Pressure Mean 76 Pulse Ox 94 97 Oxygen Delivery Method Room Air Room Air Room Air 07/22/22 23:28 Temperature Temperature Source Pulse Rate 85 Respiratory Rate 18 Respiratory Effort Blood Pressure 151/76 H Blood Pressure Mean Pulse Ox 92 Oxygen Delivery Method MDM MDM MDM Narrative Medical decision making narrative: Chief Complaint: Fall, back External records reviewed: CT scan of the head from 2020 shows no acute abnormality I considered the following differential diagnosis: There is no report of syncope, chest pain palpitations to suggest Arrhythmia or myocardial ischemia as a potential etiology the patient's Intracranial injury, axial skeletal injury. I obtained imaging to rule out acute traumatic injury. Imaging revealed a stable T2 fracture. Patient is able to ambulate here. He does not require emergent spinal surgical intervention. He requires pain medication, anti-inflammatories and close spine surgery follow- up as an outpatient. Tertiary exam failed to reveal any new injuries. Factors affecting care: Obesity, history of CVA, hypertension Social determinants of health: Elderly, poor health literacy History obtained from others: The patient's family Shared decision making: I will have a discussion with the patient and or visitors regarding risk/benefits of further testing or admission. They will be made aware of of the risk/benefits inherent in this decision they will be given the opportunity to voice understanding. Consults: None Lab Data Labs: Laboratory Results - last 24 hr 07/22/22 21:22 Urine Color Yellow Urine Clarity Sl. Cloudy Urine pH 8.0 Ur Specific Mccrory 1.015 Urine Protein 15 H Urine Glucose (UA) Normal Urine Ketones Negative Urine Occult Blood 250 H Urine Nitrite Negative Urine Bilirubin Negative Urine Urobilinogen Normal Ur Leukocyte Esterase Negative Urine RBC 50-100 SEEN Urine WBC 0 SEEN Ur Squamous Epith Cells 0 SEEN Urine Bacteria 0 SEEN Urine Mucus 0 SEEN Radiography Diagnostic Testing: Clinical Impression(s) from Imaging Studies Brain CT 07/22/22 19:32 IMPRESSION: There are no acute findings. Chronic involutional changes of the brain. Electronically Signed: Shashank Muse MD at 20:01 EDT , Cervical Spine CT 07/22/22 19:32 IMPRESSION: Degenerative changes of the cervical spine. There is reversal of the normal cervical lordosis. This can suggest neck strain. Electronically Signed: Shashank Muse MD at 19:53 EDT , Facial/Sinus 07/22/22 19:32 IMPRESSION: Right periorbital soft tissue swelling. Electronically Signed: Shashank Muse MD at 20:02 EDT , Lumbar Spine CT 07/22/22 19:32 IMPRESSION: (NOT LISTED IN ORDER OF SIGNIFICANCE) Multilevel degenerative changes, as described above. Electronically Signed: Shashank Muse MD at 19:59 EDT , Thoracic Spine CT 07/22/22 19:32 IMPRESSION: (NOT LISTED IN ORDER OF SIGNIFICANCE) There is an anterior inferior endplate corner fracture of T2. This is acute. It is non displaced. Electronically Signed: Shashank Muse MD at 19:57 EDT , ADDENDUM: 07/22/222010 IMPRESSION: (NOT LISTED IN ORDER OF SIGNIFICANCE) There is an anterior inferior endplate corner fracture of T2. This is acute. It is non displaced. N.B. : The above Results were Read Back by Shashank Muse MD to ZULLY MOYA MD, and understanding confirmed on 07/22/2022 20:04:56 (ET). Electronically Signed: Shashank Muse MD at 19:57 EDT , Abdomen/Pelvis CT 07/22/22 21:50 IMPRESSION: 1. No discrete renal mass or renal laceration demonstrated, within limitations of noncontrast imaging technique. There is mild bilateral perinephric fat stranding, likely chronic in nature. Follow-up as clinically warranted. 2. No other evidence of acute intra-abdominal abnormality. 3. Distal abdominal aortic aneurysm measuring up to 3.2 cm diameter. No aneurysm rupture or leakage. 4. Other nonurgent findings within body of report. Electronically Signed: Ricky Shafer MD at 23:12 EDT , Treatment and Re-Evaluation Narrative: Prior to discharge the patient urinated and noticed blood in his urine. Repeat assessment showed no evidence of CVA tenderness, rib tenderness or tenderness over the abdomen. Did obtain a urine sample showed evidence of hematuria. Given hematuria did obtain a CT scan of the abdomen pelvis rule out renal laceration. CT scan abdomen pelvis was negative for solid organ injury. Patient was still approved for discharge home with oxycodone, orthopedic follow- up and PCP follow-up for repeat urinalysis and possible urologic referral. Discharge Plan Triage Chief Complaint: Fall ED Provider: Zully Moya Dx/Rx/DC Orders Clinical Impression: Fracture of thoracic spine at T1-T2 level, Hematuria Instructions: Anatomy of a Normal Spine, ED Fracture, Vertebral Compression, ED Mechanical Fall Prescriptions: No Action Multivitamin 50 Plus 1 EACH tablet 1 ea PO BID Label Comments: Supplement aspirin 81 MG tablet,chewable 81 mg PO DAILY@0800 Label Comments: blood thinner cholecalciferol (vitamin D3) [Vitamin D3] 1,000 UNIT capsule 3,000 unit PO DAILY atorvastatin [Lipitor] 80 MG tablet 20 mg PO QHS hydrochlorothiazide 12.5 MG capsule 12.5 mg PO DAILY bupropion HCl 150 MG tablet extended release 24 hr 150 mg PO DAILY buspirone 5 mg Tablet 5 mg PO DAILY carvedilol 25 mg Tablet 25 mg PO BID tamsulosin 0.4 mg Capsule 0.4 mg PO BID Primary Care Provider: Marilin Gold Referrals: Kenn Rosas DO [Med Staff - Active Staff] - Activity Restrictions/Additional Instructions: Please take Tylenol, ibuprofen every 6 hours for baseline pain control. Please take oxycodone as prescribed for breakthrough pain. Please return if you develop worsening back pain, bowel or bladder incontinence, urinary retention, loss of sensation or movement in your legs. Please follow-up with orthopedic surgery. Please follow with your primary care physician for outpatient urinalysis. If urine continues to show hematuria, blood in the urine you should follow-up with urology. Disposition Disposition: Home, Self Care Discharge Date/Time: 07/22/22 23:34
[2022-07-22 18:31] VITALS: BMI 42.7
--- NOTE | 2022-07-22 19:32 | CT_ITS ---
EXAM: CT SPINE - CERVICAL WITHOUT IV REASON FOR EXAM: Male, 72 years old. NECK PAIN neck pain after fall, r/o c-spine fracture HISTORY: NECK PAIN neck pain after fall, r/o c-spine fracture Individualized dose optimization techniques were used for this CT. TECHNIQUE: Multiplanar images were obtained of the cervical spine. IV contrast was not utilized. COMPARISON: None. FINDINGS: The vertebral bodies do maintain their height. The odontoid process is intact. Diffuse fusion noted. No pre-vertebral soft tissue swelling is seen. The intravertebral disc height is lost. There are scattered lymph nodes in the neck. There are degenerative changes of the osseous structures. There is bilateral facet arthropathy. There are scattered levels of foraminal stenosis. There are vascular calcifications. There is alternation of the normal cervical lordosis. This can suggest neck strain. CT/Spine Cervical without Contras IMPRESSION: Degenerative changes of the cervical spine. There is reversal of the normal cervical lordosis. This can suggest neck strain. Electronically Signed: Shashank Muse MD at 19:53 EDT ,
--- NOTE | 2022-07-22 19:32 | CT_ITS ---
STUDY: CT LUMBAR SPINE WITHOUT CONTRAST REASON FOR EXAM: Male, 72 years old. back pain after fall r/o fracture TECHNIQUE: The patient was scanned in a multi detector CT scanner. High resolution transaxial imaging was performed. Images were obtained from T12 to S1. Sagittal and coronal images were reconstructed. Individualized dose optimization techniques were used for this CT. COMPARISON: None FINDINGS: Normal lumbar lordosis. There is no substantial scoliosis. Normal vertebrae of the lumbar spine. L1-2: There is bilateral facet arthropathy. Loss of intervertebral disc height. There is endplate spondylosis of the vertebral body. Severe narrowing of the central canal. Severe narrowing of the intervertebral neuroforamina. Discogenic endplate changes. L2-3: There is bilateral facet arthropathy. Loss of intervertebral disc height. There is endplate spondylosis of the vertebral body. Severe narrowing of the central canal. Severe narrowing of the intervertebral neuroforamina. L3-4: There is bilateral facet arthropathy. Loss of intervertebral disc height. There is endplate spondylosis of the vertebral body. Severe narrowing of the central canal. Severe narrowing of the intervertebral neuroforamina. L4-5: There is bilateral facet arthropathy. Loss of intervertebral disc height. There is endplate spondylosis of the vertebral body. Severe narrowing of the central canal. Severe narrowing of the intervertebral neuroforamina. L5-S1: There is bilateral facet arthropathy. Loss of intervertebral disc height. There is endplate spondylosis of the vertebral body. Severe narrowing of the central canal. Severe narrowing of the intervertebral neuroforamina. Normal visualized paraspinous soft tissue structures. CT/Spine Lumbar without Contrast IMPRESSION: (NOT LISTED IN ORDER OF SIGNIFICANCE) Multilevel degenerative changes, as described above. Electronically Signed: Shashank Muse MD at 19:59 EDT Reading Location ID and State: [facility] / [place] , Service support ,
--- NOTE | 2022-07-22 19:32 | CT_ITS ---
STUDY: CT BRAIN WITHOUT CONTRAST REASON FOR EXAM: Male, 72 years old. fall, head trauma Individualized dose optimization techniques were used for this CT. TECHNIQUE: Transaxial CT imaging of the brain was performed without administration of intravenous contrast material. COMPARISON: 3 FINDINGS: There are calcifications around the carotid artery. These are noted in the cavernous carotid arteries. Normal calvarium. Normal soft tissues. There is mild cerebral atrophy with widening of the extra-axial spaces and ventricular dilatation. There are areas of decreased attenuation within the white matter tracts of the supratentorial brain, consistent with microvascular disease changes. Normal basal ganglia and thalami. Normal brainstem. There is mild cerebellar atrophy. There is no intracranial hemorrhage. There are no findings of an acute ischemic infarction. Normal visualized paranasal sinuses. ASPECTS Score for Acute Strokes: 10/ CT/Brain/Head without Contrast IMPRESSION: There are no acute findings. Chronic involutional changes of the brain. Electronically Signed: Shashank Muse MD at 20:01 EDT ,
--- NOTE | 2022-07-22 19:32 | CT_ITS ---
EXAM: CT MAXILLOFACIAL WITHOUT INTRAVENOUS CONTRAST CLINICAL INDICATION: fall, right eye trauma r/o facial fracture TECHNIQUE: Helically acquired images were obtained of the face without intravenous contrast. This CT exam was performed using one or more of the following dose reduction techniques: automated exposure control, adjustment of the mA and/or kV according to patient size, and/or use of iterative reconstruction technique. This report was created using [employer] report generation technology. RADIATION DOSE: CTDIvol = 29.38 mGy, DLP = 628.26 mGy-cm COMPARISON: None. FINDINGS: BONES/JOINTS: Unremarkable. No displaced fracture. No discrete lytic or blastic abnormalities. SOFT TISSUES: Right periorbital soft tissue swelling. No discrete fluid collections. ORBITS: Unremarkable. Both globes are unremarkable. Extraocular muscles are normal. Retrobulbar fat appears unremarkable. SINUSES: Unremarkable as visualized. Clear. MASTOID AIR CELLS: Unremarkable as visualized. Clear. DENTAL: No acute findings. No periodontal osseous erosion. CT/Sinus/Facial Bone IMPRESSION: Right periorbital soft tissue swelling. Electronically Signed: Shashank Muse MD at 20:02 EDT ,
--- NOTE | 2022-07-22 19:32 | CT_ITS ---
We are attempting to reach an attending provider to discuss findings. An addendum with communication details will be sent when the communication is complete. STUDY: CT THORACIC SPINE WITHOUT CONTRAST REASON FOR EXAM: Male, 72 years old. FALL,BACK AND NECK PAIN,SKIN TEAR BELOW RT EYE HX:CVA,HLD,HTN Back pain TECHNIQUE: The patient was scanned in a multi detector CT scanner. High resolution imaging was performed. Images were obtained from T1 to T12. Sagittal and coronal images were reconstructed. Individualized dose optimization techniques were used for this CT. COMPARISON: None. FINDINGS: There is multilevel degenerative disc disease and cervical spondylosis. Normal kyphosis of the thoracic spine. There is no substantial scoliosis. There is multilevel endplate spondylosis of the thoracic spine. There is multilevel degenerative disc disease with loss of the disc space heights. There is an anterior inferior endplate corner fracture of T2. Se 607 IM: 60. The soft tissue structures are unremarkable. CT/Spine Thoracic without Contras IMPRESSION: (NOT LISTED IN ORDER OF SIGNIFICANCE) There is an anterior inferior endplate corner fracture of T2. This is acute. It is non displaced. Electronically Signed: Shashank Muse MD at 19:57 EDT ,
[2022-07-22] MEDS: oxyCODONE 5 MG Tablet PO ×2 (19:38→21:17)
[2022-07-22 21:32] LABS: Bacteria 0 SEEN /hpf (None Seen); Mucous, Urine 0 SEEN /hpf (<or=2+); Squamous Epithelial Cells - UA 0 SEEN /hpf (0-5); White Blood Cells 0 SEEN /hpf (0-5)
[2022-07-22 21:33] LABS: Color, Urine Yellow (Yellow); Glucose, Dipstick Normal (Normal); Ketone-Dipstick Negative (Negative); Leukocyte Esterase-Dipstick Negative /ul (Negative); Nitrite-Dipstick Negative (Negative); Occult Blood-Urine 250 /ul (Negative); Protein-Dipstick 15 mg/dl (Negative); Specific Gravity, Urine 1.015 (1.002-1.030); Urine Bilirubin Dipstick Negative (Negative); Urine Clarity Sl. Cloudy (Clear); Urine Urobilinogen Normal (Normal)
[2022-07-22 21:42] VITALS: PULSE 68; RESP 18; O2SAT 97
[2022-07-22 21:44] LABS: Red Blood Cells-Urine 50-100 SEEN /hpf (0-5)
--- NOTE | 2022-07-22 21:50 | CT_ITS ---
INDICATION: hematuria r/o renal laceration, status post fall EXAMINATION: CT ABDOMEN AND PELVIS WITHOUT CONTRAST TECHNIQUE: Helically acquired images were obtained of the abdomen and pelvis without IV contrast. 2-D reconstructions reviewed. A radiation dose optimization technique was used for this scan. IV Contrast dosage and agent: None. Oral contrast: None. COMPARISON: CT lumbar spine from 3 hours prior FINDINGS: LOWER CHEST: Minimal basilar atelectatic changes. Punctate peripheral scarlike opacity lateral right lower lobe. Normal size heart with coronary arterial and aortic valvular calcifications. LIVER: Homogeneous. No concerning lesion. GALLBLADDER AND BILIARY TREE: No calcified gallstones identified. No gallbladder wall edema demonstrated. No significant biliary ductal dilation. PANCREAS: Fatty infiltration with no discrete mass or peripancreatic edema. SPLEEN: Normal size without discrete mass. ADRENAL GLANDS: Unremarkable. KIDNEYS AND URETERS: Malrotated right kidney. Mild bilateral perinephric fat stranding. No discrete mass. No hydronephrosis. No tract stones identified. PERITONEUM: No peritoneal free air or significant free fluid. No other fluid collection. RETROPERITONEUM: No retroperitoneal mass or pathologic fluid collection. BOWEL: Normal appendix posterior to cecum within mid right paracolic gutter. No abnormal stomach or bowel distension. No focal inflammatory change. LYMPH NODES: No enlarged mesenteric or retroperitoneal lymph nodes. VESSELS: Generalized atherosclerotic calcifications. Mild aneurysmal dilatation of infrarenal aorta measures up to 3.2 cm AP diameter. URINARY BLADDER: Unremarkable as visualized. REPRODUCTIVE ORGANS: No pelvic masses. ABDOMINAL WALL: No acute findings or significant hernia defect. BONES: Multilevel discogenic degenerative changes, endplate spondylosis and degenerative facet arthropathy along spine. No acute fracture identified. Chronic left rib fractures. CT/Abdomen/Pelvis without Cont IMPRESSION: 1. No discrete renal mass or renal laceration demonstrated, within limitations of noncontrast imaging technique. There is mild bilateral perinephric fat stranding, likely chronic in nature. Follow-up as clinically warranted. 2. No other evidence of acute intra-abdominal abnormality. 3. Distal abdominal aortic aneurysm measuring up to 3.2 cm diameter. No aneurysm rupture or leakage. 4. Other nonurgent findings within body of report. Electronically Signed: Ricky Shafer MD at 23:12 EDT ,
[2022-07-22 23:28] VITALS: BP 151/76; PULSE 85; RESP 18; O2SAT 92
== END 2022-07-22 23:34 | disposition home or self-care (01) ==
PROVIDERS: Emergency Provider Emergency Medicine; PCP Family Medicine; Visit Provider Emergency Medicine
DX: S22.019A Unspecified fracture of first thoracic vertebra, initial encounter for closed fracture (principal); S22.029A Unspecified fracture of second thoracic vertebra, initial encounter for closed fracture; R31.9 Hematuria, unspecified; Z86.73 Personal history of transient ischemic attack (TIA), and cerebral infarction without residual deficits; W19.XXXA Unspecified fall, initial encounter; Z87.891 Personal history of nicotine dependence
CPT/HCPCS: 70450; 70486; 72125; 72128; 72131; 74176; 81001; 99283

== ENCOUNTER 2022-10-20 11:45 | Observation (INO) | payer OTHER, SELFPAY ==
[2022-10-20 11:48] VITALS: BP 109/80; PULSE 66; RESP 14; TEMP 36.1; O2SAT 92
[2022-10-20 11:50] VITALS: BMI 43.0
--- NOTE | 2022-10-20 12:10 | CT_ITS ---
STUDY: CT BRAIN WITHOUT CONTRAST REASON FOR EXAM: Male, 72 years old. Fall/trauma RADIATION DOSAGE (If Supplied By Facility): CTDIvol = ( 44.99 ) mGy, DLP = ( 829.85 ) mGycm TECHNIQUE: Transaxial CT imaging of the brain was performed without administration of intravenous contrast material. Individualized dose optimization techniques were used for this CT. COMPARISON: Comparison is made with prior study dated 07/22/2022. FINDINGS: Small scalp hematoma overlying the posterior right parietal occipital bone. Small radiopaque foreign bodies are seen. Stable examination. Normal calvarium. There is mild cerebral atrophy with widening of the extra-axial spaces and ventricular dilatation. There are areas of decreased attenuation within the white matter tracts of the supratentorial brain, consistent with microvascular disease changes. Normal basal ganglia and thalami. Normal brainstem. There is mild cerebellar atrophy. There is no intracranial hemorrhage. There are no findings of an acute ischemic infarction. Atherosclerotic calcification of the vertebral arteries and cavernous portions of the internal carotid arteries bilaterally. Normal visualized paranasal sinuses. CT/Brain/Head without Contrast IMPRESSION: Chronic involutional changes of the brain. Small scalp hematoma overlying the posterior right parietal occipital bone. Tiny hyperdensities are seen within the soft tissues suggestive of possible foreign bodies. Electronically Signed: Rich Velez MD at 13:15 EDT ,
--- NOTE | 2022-10-20 12:10 | CT_ITS ---
STUDY: CT CERVICAL SPINE WITHOUT CONTRAST REASON FOR EXAM: Male, 72 years old. Neck injury due to a fall. RADIATION DOSAGE (If Supplied By Facility): CTDIvol = ( 36.21 ) mGy, DLP = ( 739.16 ) mGycm TECHNIQUE: High resolution transaxial imaging was performed without contrast material. Sagittal and coronal images were reconstructed. Individualized dose optimization techniques were used for this CT. COMPARISON: Comparison is made with prior study dated July 22, 2022. FINDINGS: Normal craniovertebral junction. There are degenerative changes of the anterior atlantoaxial articulation. Normal odontoid process. There is reversal of the normal cervical lordosis. Multilevel spondylosis and disc space narrowing. C2-3: Moderate degree of disc space narrowing. Facet joint osteoarthritis and hypertrophy with uncovertebral arthrosis. Moderate degree of bilateral neural foraminal stenosis. C3-4: Marked degree of disc space narrowing. Spondylosis. Uncovertebral arthrosis. Facet joint osteoarthritis. Moderate degree of bilateral neural foraminal stenosis and mild central canal stenosis. C4-5: Marked degree of disc space narrowing. Spondylosis. Uncovertebral arthrosis. Bilateral neural foraminal stenosis worse on the right side. Mild central canal stenosis. C5-6: Marked degree of disc space narrowing. Anterior spondylosis. Uncovertebral arthrosis. Bilateral neural foraminal stenosis. C6-7: Moderate degree of disc space narrowing. Spondylosis. Bilateral neural foraminal stenosis. C7-T1: Old oblique fracture involving the anterior inferior aspect of the T1 vertebrae suggestive of possible avulsion of the degenerative spur. Atherosclerotic plaque formation of the carotid bifurcations bilaterally. CT/Spine Cervical without Contras IMPRESSION: Multilevel degenerative changes, as described above. Electronically Signed: Rich Velez MD at 13:20 EDT ,
--- NOTE | 2022-10-20 12:12 | EDS_ITS ---
HPI HPI - Fall History of Present Illness Chief Complaint: Fall Informant: patient and spouse/S.O. Narrative Narrative: Patient was at the [facility] in [place] for a routine outpatient follow-up visit, has been feeling weak this morning prior to going there, and states that he felt because my right foot got caught on the floor. He apparently landed on his back and head, he did not lose consciousness, came into the bathroom to he lp him, found him on his back awake and alert and not confused. He then had his visit, they state they looked him over and recommended that he go to the emergency department that was closed there but they declined and waited to the end of the visit and came here closer to their home. He has a headache, pain in his neck, and upper back. He denies any other pain or injury. He denies any other new symptoms today other than just feeling weak. He was able to walk after leaving the [facility]. He takes no anticoagulants or antiplatelets other than a baby aspirin daily. [facility] Medical History Acute eczema HLD (hyperlipidemia) HTN (hypertension) Stroke Home Medications otzigvpyuiio-tsqgwkow-ruybro tablet (Multivitamin 50 Plus tablet) 1 ea PO BID supplement 04/09/16 [History Last Taken 08/07/17 09:00 1 tab] aspirin 81 mg chewable tablet 81 mg PO DAILY@0800 heart 04/15/16 [History Last Taken 08/07/17 09:00 81 mg] atorvastatin 80 mg tablet (Lipitor) 20 mg PO QHS cholesterol 02/17/17 [History Last Taken 08/06/17 21:00 80 mg] cholecalciferol (vitamin D3) 25 mcg (1,000 unit) capsule (Vitamin D3) 3,000 unit PO DAILY Supplement 02/17/17 [History Last Taken 08/07/17 09:00 3,000 units] hydrochlorothiazide 12.5 mg capsule 12.5 mg PO DAILY Bp 08/08/17 [History Last Taken 08/07/17 09:00 12.5mg] bupropion HCl 150 mg 24 hr tablet, extended release 150 mg PO DAILY 08/09/17 [History Last Taken Unknown] buspirone 5 mg tablet 5 mg PO DAILY 08/27/21 [History Last Taken Unknown] carvedilol 25 mg tablet 12.5 mg PO BID 08/27/21 [History Last Taken Unknown] tamsulosin 0.4 mg capsule 0.4 mg PO BID 08/27/21 [History Last Taken Unknown] Allergy/AdvReac Type Severity Reaction Status Date / Time lisinopril AdvReac Other Verified 10/20/22 11:48 losartan AdvReac Other Verified 10/20/22 11:48 Social History Smoking Status: Former smoker ROS ROS ED Constitutional Constitutional ED: Reports weakness; Denies chills or fever(s) Eyes Eyes: Denies change in vision or diplopia ENT ENT ED: Denies ear pain, epistaxis, facial pain or rhinorrhea Cardiovascular Cardiovascular: Denies chest pain or palpitations Respiratory/Chest Respiratory/Chest: Denies cough or dyspnea Gastrointestinal Gastrointestinal: Denies abdominal pain, diarrhea, melena, nausea or vomiting Genitourinary Genitourinary ED: Denies dysuria or hematuria Musculoskeletal Musculoskeletal: Reports back pain and neck pain; Denies extremity pain Integumentary Denies abscess, Abrasions, laceration or rash Neurologic Neurologic: Denies confusion, headache(s), paresthesias or weakness EXAM Physical Exam Const Vital Signs: 10/20/22 11:48 10/20/22 11:58 10/20/22 13:51 Temperature 97 F L Temperature Source Temporal Pulse Rate 66 58 L Respiratory Rate 14 15 Respiratory Effort Normal Non-Labored Respiratory Pattern Normal Blood Pressure 109/80 123/74 H Blood Pressure Mean 89 90 Pulse Ox 92 Oxygen Delivery Method Room Air Positive well nourished, well developed and obese General Appearance ED: well developed and NAD Nutritional Appearance: obese HEENT Reports TM's clear and nasal mucous membranes and turbinates normal HEENT Narrative: Tender occipital scalp, hematoma likely here but no crepitance or depression or laceration. Face and Sinus: Negative for facial tenderness Tympanic Membrane ED: Yes TM's clear Eyes PERRL and EOMs intact bilaterally Visual Acuity: other Other Details: no entrapment or pain with extraocular movements Neck full ROM and supple Neck Narrative: Diffuse C-spine tenderness mostly bilateral paraspinal but also including the midline, less there. General: tenderness Chest Wall inspection of chest normal and palpation of chest normal Chest: symmetrical chest wall rise; Negative for crepitus or tenderness Resp normal respiratory effort and clear to auscultation bilaterally Percussion: other equal BS bilat Cardio Cardio Narrative: Systolic soft ejection 2/6 murmur Rate: regular rate Rhythm: regular rhythm GI normal to inspection, nondistended, normoactive bowel sounds, soft to palpation and non-tender Back/Spine normal ROM Back/Spine Narrative: No obvious signs of trauma to the back or neck. No step-offs. Full range of mo tion without significant discomfort. Cervical Spine: cervical spine tenderness Thoracic Spine / Upper Back: thoracic spinal tenderness T1, T2 and T3 Lumbar Spine / Lower Back: Negative for lumbar spinal tenderness Extremity normal to inspection and full ROM General Extremety ED: Negative for tenderness Neuro oriented x3, CN's II-XII intact bilaterally, moves all extremities, no focal motor deficits and no sensory deficits noted [address] Coma Scale: document GCS findings Spontaneous Obeys Commands Oriented 15 Sensorium / Orientation: awake and alert Psych mental status grossly normal and thought process normal Skin no wounds Lesions: no lesions Rashes: no rashes MDM MDM MDM Narrative Medical decision making narrative: Imaged the areas of injury including the head and the neck and the thoracic back, I reviewed the CT images of the head and neck, and 2 view x-ray series of the thoracic spine negative for any acute fracture my interpretation, I agree with the radiology reports and CTs. Basically negative for any acute. I also obtain screening testing due to his generalized weakness. His troponin is nonspecifically abnormal at 95, and his chest x-ray 2 views of my interpretation show possibly some mild cephalization, radiology agrees it is consistent with mild CHF, which led to obtaining an EKG, repeat troponin in 2 hours, and a BNP. The troponin went up to 96, the BNP is well within normal limits, his EKG is unchanged compared with his old except for a PVC with compensatory pause. I discussed with Dr. Boggs with cardiology, who agrees with admitting him and starting with a stress echocardiogram given his high risk. Discussed with hospitalist who agrees with inpatient observation on [facility] telemetry. History & Record Review Additional record(s) reviewed:: Prior outpatient record (No prior echo available) Lab Data Attestation: I reviewed the patient's lab results. Labs: Laboratory Results - last 24 hr 10/20/22 10/20/22 10/20/22 12:23 12:30 14:30 WBC 6.5 RBC 4.64 Hgb 13.2 Hct 40.5 MCV 87.3 MCH 28.4 MCHC 32.6 RDW Std Deviation 41.6 RDW Coeff of Letty 13.2 Plt Count 183 MPV 10.5 Immature Gran % (Auto) 0.300 Neut % (Auto) 61.7 Lymph % (Auto) 24.1 [place] % (Auto) 10.5 H Eos % (Auto) 2.9 Baso % (Auto) 0.5 Absolute Neuts (auto) 4.0 Absolute Lymphs (auto) 1.56 Nucleated RBC % 0 Sodium 137 Potassium 3.4 L Chloride 103 Carbon Dioxide 30.0 Anion Gap 4 L BUN 18 Creatinine 0.78 Estim Creat Clear Calc 65.79 Est GFR (MDRD) Af Amer 126 Est GFR (MDRD) Non-Af 104 BUN/Creatinine Ratio 23.1 H Glucose 93 Calcium 9.1 Troponin I High Sens 95 H 96 H B-Natriuretic Peptide 40.3 Urine Color Yellow Urine Clarity Clear Urine pH 7.0 Ur Specific [place] 1.005 Urine Protein Negative Urine Glucose (UA) Normal Urine Ketones Negative Urine Occult Blood Negative Urine Nitrite Negative Urine Bilirubin Negative Urine Urobilinogen Normal Ur Leukocyte Esterase Negative Urine RBC 0 SEEN Urine WBC 0 SEEN Ur Squamous Epith Cells 0-5 SEEN Urine Bacteria 0 SEEN Urine Mucus 0 SEEN Radiography Diagnostic Testing: Clinical Impression(s) from Imaging Studies Brain CT 10/20/22 12:10 IMPRESSION: Chronic involutional changes of the brain. Small scalp hematoma overlying the posterior right parietal occipital bone. Tiny hyperdensities are seen within the soft tissues suggestive of possible foreign bodies. Electronically Signed: Rich Velez MD at 13:15 EDT , Cervical Spine CT 10/20/22 12:10 IMPRESSION: Multilevel degenerative changes, as described above. Electronically Signed: Rich Velez MD at 13:20 EDT , Chest X-Ray 10/20/22 12:30 IMPRESSION: Mild cardiomegaly with evidence of passive congestion and mild CHF. Electronically Signed: Rich Velez MD at 13:26 EDT , Thoracic Spine X-Ray 10/20/22 12:30 IMPRESSION: Multilevel spondylosis and disc space narrowing. Electronically Signed: Rich Velez MD at 13:28 EDT , Rhythm Strip Rhythm Strip: Sinus Rhythm Rate: 65 Ectopy: None EKG Initial EKG: Attestation: I personally reviewed and interpreted this EKG as follows: Interpretation: Sinus Rhythm, No Acute Injury Pattern and LAFB Comments: PVC Prior EKG tracings: available for review Prior: Unchanged Management Discussion w/another healthcare provider: Hospitalist and [employer] Discharge Plan Triage Chief Complaint: Fall Other Complaint: Head Injury ED Provider: Jung Alcala Dx/Rx/DC Orders Clinical Impression: Acute cervical myofascial strain, Generalized weakness, Elevated troponin, Accidental fall, Closed head injury without loss of consciousness Prescriptions: No Action Multivitamin 50 Plus 1 EACH tablet 1 ea PO BID Patient Comments: Supplement aspirin 81 MG tablet,chewable 81 mg PO DAILY@0800 Patient Comments: blood thinner cholecalciferol (vitamin D3) [Vitamin D3] 1,000 UNIT capsule 3,000 unit PO DAILY atorvastatin [Lipitor] 80 MG tablet 20 mg PO QHS hydrochlorothiazide 12.5 MG capsule 12.5 mg PO DAILY bupropion HCl 150 MG tablet extended release 24 hr 150 mg PO DAILY buspirone 5 mg Tablet 5 mg PO DAILY carvedilol 25 mg Tablet 12.5 mg PO BID tamsulosin 0.4 mg Capsule 0.4 mg PO BID Primary Care Provider: Marilin Gold Referrals: Marilin Gold MD [Primary Care Provider] - Disposition Disposition: Acute Care Hospital [facility]
[2022-10-20] MEDS: Acetaminophen 325 MG Tablet 650 MG PO (12:22)
--- NOTE | 2022-10-20 12:30 | RAD_ITS ---
STUDY: X-RAY - THORACIC SPINE REASON FOR EXAM: Male, 72 years old. Upper pain s/p fall TECHNIQUE: 2 view(s) of the thoracic spine were obtained. COMPARISON: None. FINDINGS: Normal kyphosis of the thoracic spine. There is no substantial scoliosis. There is multilevel endplate spondylosis of the thoracic vertebrae. There is multilevel disc space narrowing of the thoracic spine. The soft tissue structures are unremarkable. RAD/Thoracic Spine 2 Views IMPRESSION: Multilevel spondylosis and disc space narrowing. Electronically Signed: Rich Velez MD at 13:28 EDT ,
--- NOTE | 2022-10-20 12:30 | RAD_ITS ---
STUDY: X-RAY CHEST REASON FOR EXAM: Male, 72 years old. Weakness, cough TECHNIQUE: PA and lateral views of the chest. COMPARISON: Comparison is made with prior study dated October 08, 2015. FINDINGS: EKG electrodes are seen. There is evidence of vascular congestion and CHF. There is no demonstrated pleural abnormality. There is mild cardiac enlargement. Normal mediastinum and awa. Normal visualized pulmonary arteries. There is atherosclerotic calcification of the aortic arch with tortuosity. There are degenerative changes of the visualized thoracic spine. Normal visualized ribs, clavicles, and shoulders. There is no demonstrated abnormality of the visualized soft tissue structures of the upper abdomen. RAD/Chest PA and Lateral IMPRESSION: Mild cardiomegaly with evidence of passive congestion and mild CHF. Electronically Signed: Rich Velez MD at 13:26 EDT ,
[2022-10-20 12:34] LABS: Absolute Lymphocyte Count 1.56 X10^3/uL (0.83-4.51); Basophil# 0.03 X10^3/uL; Basophil% 0.5 % (0-1); Eosinophil# 0.19 X10^3/uL; Eosinophils% 2.9 % (0-5); Hematocrit 40.5 % (40-54); Hemoglobin 13.2 g/dL (13.0-16.5); Lymphocyte # 1.56 X10^3/ul (0.83-4.51); Lymphocyte % 24.1 % (19-41); Mean Corp Hgb Conc 32.6 g/dL (32-36); Mean Corpuscular Hgb 28.4 pg (27.0-32.0); Mean Corpuscular Volume 87.3 fL (80-94); Mean Platelet Vol. 10.5 fl (6.2-12.0); Monocyte# 0.68 X10^3/uL; Monocyte% 10.5 % (0-10); NRBC Flagged by Analyzer 0 % (0-5); Neutrophil % 61.7 % (47-70); Platelet Count 183 K/mm3 (150-450); RBC Distribution Width CV 13.2 % (11.6-14.6); RBC Distribution Width SD 41.6 fl (35.1-43.9); Red Blood Count 4.64 M/mm3 (4.6-6.2); White Blood Count 6.5 K/mm3 (4.4-11.0)
[2022-10-20 12:35] LABS: Bacteria 0 SEEN /hpf (None Seen); Mucous, Urine 0 SEEN /hpf (<or=2+); Red Blood Cells-Urine 0 SEEN /hpf (0-5); White Blood Cells 0 SEEN /hpf (0-5)
[2022-10-20 12:48] LABS: Color, Urine Yellow (Yellow); Glucose, Dipstick Normal (Normal); Ketone-Dipstick Negative (Negative); Leukocyte Esterase-Dipstick Negative /ul (Negative); Nitrite-Dipstick Negative (Negative); Occult Blood-Urine Negative /ul (Negative); Protein-Dipstick Negative (Negative); Specific Gravity, Urine 1.005 (1.002-1.030); Urine Bilirubin Dipstick Negative (Negative); Urine Clarity Clear (Clear); Urine Urobilinogen Normal (Normal)
[2022-10-20 13:04] LABS: Anion Gap 4 (5-15); BUN 18 mg/dL (7-18); BUN/Creat Ratio 23.1 RATIO (10-20); Calcium,Total 9.1 mg/dL (8.5-10.1); Chloride 103 mmol/L (98-107); Creatinine, Serum 0.78 mg/dL (0.70-1.30); EST Glomerular Filtration Rate 104 mL/min (>60); Est Glom Filt Rate - Afr Amer 126 mL/min (>60); Estimated Creatinine Clearance 65.79 ml/min; Glucose 93 mg/dL (74-106); Potassium 3.4 mmol/L (3.5-5.1); Sodium Level 137 mmol/L (136-145); Troponin-I HS 95 pg/mL (3.0-78.0)
[2022-10-20 13:09] LABS: Squamous Epithelial Cells - UA 0-5 SEEN /hpf (0-5)
--- NOTE | 2022-10-20 13:46 | EKG12_ITS ---
Test Reason : FALL Blood Pressure : / mmHG Vent. Rate : 065 BPM Atrial Rate : 065 BPM P-R Int : 212 ms QRS Dur : 120 ms QT Int : 438 ms P-R-T Axes : 025 -44 079 degrees QTc Int : 455 ms Sinus rhythm with sinus arrhythmia with 1st degree A-V block with occasional Premature ventricular co mplexes Confirmed by FLYNN CHRISTIANSEN, ELISA ([id number]), writer editor ESTRELLA VELIZ ([id number]) on 10/22/2022 10:19:18 AM Referred By: Confirmed By:ELISA PRUETT MD
[2022-10-20 13:51] VITALS: BP 123/74; PULSE 58; RESP 15
[2022-10-20 14:53] LABS: BNP,B-Type NATRIURETIC PEPTIDE 40.3 pg/mL (0-100)
[2022-10-20 14:56] LABS: Troponin-I HS 96 pg/mL (3.0-78.0)
--- NOTE | 2022-10-20 16:36 | NURSING ---
MED SURG MELISA GEN WEAKNESS, ELEVATED TROP
[2022-10-20 16:49] VITALS: BP 141/79; PULSE 73; RESP 18; TEMP 36.7; O2SAT 94
--- NOTE | 2022-10-20 17:22 | PCM.HP.STD ---
HPI - General General Date of Admission: 10/20/22 Date of Service: 10/20/22 Chief Complaint: Loss of balance and fall HPI Narrative HARRIS CLEMENS, is a 72 M with a history of morbid obesity, hypertension, cerebrovascular disease with history of stroke. Patient was at his doctor's office [place] the [place] when he lost balance and fell while in the bathroom. Patient fell onto his buttock, back and head. On account of this patient was brought to the emergency department. X-rays were done which was negative for any fractures. Patient denies any pain in any sites other than his low back which is chronic. History was obtained from patient and spouse and daughter who are at the bedside. Patient is largely sedentary and is mostly in a recliner. He does use a cane to ambulate. Never really gets out of the house. He denies any chest pain or shortness of breath. [facility] Medical History Acute eczema HLD (hyperlipidemia) HTN (hypertension) Stroke Home Medications zdhvecvragrq-gxuzxdec-zyxurg tablet (Multivitamin 50 Plus tablet) 1 ea PO BID supplement 04/09/16 [History Last Taken 08/07/17 09:00 1 tab] aspirin 81 mg chewable tablet 81 mg PO DAILY@0800 heart 04/15/16 [History Last Taken 08/07/17 09:00 81 mg] atorvastatin 80 mg tablet (Lipitor) 20 mg PO QHS cholesterol 02/17/17 [History Last Taken 08/06/17 21:00 80 mg] cholecalciferol (vitamin D3) 25 mcg (1,000 unit) capsule (Vitamin D3) 3,000 unit PO DAILY Supplement 02/17/17 [History Last Taken 08/07/17 09:00 3,000 units] hydrochlorothiazide 12.5 mg capsule 12.5 mg PO DAILY Bp 08/08/17 [History Last Taken 08/07/17 09:00 12.5mg] bupropion HCl 150 mg 24 hr tablet, extended release 150 mg PO DAILY 08/09/17 [History Last Taken Unknown] buspirone 5 mg tablet 5 mg PO DAILY 08/27/21 [History Last Taken Unknown] carvedilol 25 mg tablet 12.5 mg PO BID 08/27/21 [History Last Taken Unknown] tamsulosin 0.4 mg capsule 0.4 mg PO BID 08/27/21 [History Last Taken Unknown] Allergy/AdvReac Type Severity Reaction Status Date / Time lisinopril AdvReac Other Verified 10/20/22 16:44 losartan AdvReac Other Verified 10/20/22 16:44 Social History Smoking Status: Former smoker ROS ROS Narrative Denies any chest pain or shortness of breath. All other systems reviewed and essentially negative as above in the body of the history. Vital Signs Vital Signs Vital Signs: 10/20/22 11:48 10/20/22 11:58 10/20/22 13:51 Temperature 36.1 C L Temperature Source Temporal Pulse Rate 66 58 L Respiratory Rate 14 15 Respiratory Effort Normal Non-Labored Respiratory Pattern Normal Blood Pressure 109/80 123/74 H Blood Pressure Mean 89 90 Pulse Ox 92 Oxygen Delivery Method Room Air 10/20/22 16:49 Temperature 36.7 C Temperature Source Oral Pulse Rate 73 Respiratory Rate 18 Respiratory Effort Respiratory Pattern Blood Pressure 141/79 H Blood Pressure Mean 99 Pulse Ox 94 Oxygen Delivery Method Room Air Weight Weight: 131.9 kg Body Mass Index (BMI) 43.0 Physical Exam Narrative General exam. Elderly male, morbidly obese, slightly depressed appearing HEENT. Oral mucosa moist no pallor or jaundice Neck. Neck is supple Lungs. Lungs are clear to auscultation Heart. First and second heart sounds heard, patient has a grade 3/6 ejection systolic murmur maximal at the right upper sternal border. Abdomen. Obese. Moves with respiration Extremities. Minimal poorly pitting edema in both lower extremities. [employer]. Conscious and alert oriented x3. Power in both lower extremities at least 4 +. Power in both upper extremities about 4 +. Speech is fluent and comprehension is intact. Cranial nerves II to XII grossly intact. Results Medical Records Data Attestation: I reviewed the patient's medical records Lab / Micro Data Attestation: I reviewed the patient's lab results. 10/20/22 12:23 10/20/22 12:23 Labs: Laboratory Results - last 24 hr 10/20/22 12:23: WBC 6.5, RBC 4.64, Hgb 13.2, Hct 40.5, MCV 87.3, MCH 28.4, MCHC 32.6, RDW Std Deviation 41.6, RDW Coeff of Letty 13.2, Plt Count 183, MPV 10.5, Immature Gran % (Auto) 0.300, Neut % (Auto) 61.7, Lymph % (Auto) 24.1, [place] % (Auto) 10.5 H, Eos % (Auto) 2.9, Baso % (Auto) 0.5, Absolute Neuts (auto) 4.0, Absolute Lymphs (auto) 1.56, Nucleated RBC % 0, Sodium 137, Potassium 3.4 L, Chloride 103, Carbon Dioxide 30.0, Anion Gap 4 L, BUN 18, Creatinine 0.78, Estim Creat Clear Calc 65.79, Est GFR (MDRD) Af Amer 126, Est GFR (MDRD) Non-Af 104, BUN/Creatinine Ratio 23.1 H, Glucose 93, Calcium 9.1, Troponin I High Sens 95 H 10/20/22 12:30: Urine Color Yellow, Urine Clarity Clear, Urine pH 7.0, Ur Specific [place] 1.005, Urine Protein Negative, Urine Glucose (UA) Normal, Urine Ketones Negative, Urine Occult Blood Negative, Urine Nitrite Negative, Urine Bilirubin Negative, Urine Urobilinogen Normal, Ur Leukocyte Esterase Negative, Urine RBC 0 SEEN, Urine WBC 0 SEEN, Ur Squamous Epith Cells 0-5 SEEN, Urine Bacteria 0 SEEN, Urine Mucus 0 SEEN 10/20/22 14:30: Troponin I High Sens 96 H, B-Natriuretic Peptide 40.3 Rhythm Strip Rhythm Strip: Sinus Rhythm Rate: 65 Ectopy: None Radiology Impression Brain CT 10/20/22 12:10 IMPRESSION: Chronic involutional changes of the brain. Small scalp hematoma overlying the posterior right parietal occipital bone. Tiny hyperdensities are seen within the soft tissues suggestive of possible foreign bodies. Electronically Signed: Rich Velez MD at 13:15 EDT , Cervical Spine CT 10/20/22 12:10 IMPRESSION: Multilevel degenerative changes, as described above. Electronically Signed: Rich Velez MD at 13:20 EDT , Chest X-Ray 10/20/22 12:30 IMPRESSION: Mild cardiomegaly with evidence of passive congestion and mild CHF. Electronically Signed: Rich Velez MD at 13:26 EDT , Thoracic Spine X-Ray 10/20/22 12:30 IMPRESSION: Multilevel spondylosis and disc space narrowing. Electronically Signed: Rich Velez MD at 13:28 EDT , Assessment & Plan Assessment/Plan (1) Accidental fall: PLAN: Plan 1. Accidental/mechanical fall with functional decline and debility. This is most likely secondary to patient's sedentary lifestyle. Patient will clearly benefit from rehabilitation either in the inpatient or outpatient setting. We will consult physical Occupational Therapy to evaluate. manager compensation to assist with discharge planning. Check vitamin D and vitamin B12 levels. 2. Hypertension. The patient is fairly well controlled at this time. Continue antihypertensive regimen as at home. 3. Morbid obesity. Lifestyle modifications as able. 4. Mildly elevated troponins. Have remained flat without any delta. Patient without any chest pain or concerning EKG findings. No further work-up of this clearly indicated. 5. Mild hypokalemia. Will replete.
--- NOTE | 2022-10-20 17:35 | NURSING ---
CALLED [facility]. TALKED TO ALIYAH. SHE TOOK INFO.
[2022-10-20 18:17] VITALS: BP 120/68; PULSE 58; RESP 16; TEMP 36.7; O2SAT 93
[2022-10-20 18:25] VITALS: BMI 41.9
[2022-10-20 21:32] VITALS: BP 114/69; PULSE 55; RESP 16; TEMP 36.7; O2SAT 95
[2022-10-20] MEDS: Enoxaparin 40 MG/0.4 ML Syringe SC (21:36)
[2022-10-20] MEDS: Carvedilol 12.5 MG Tablet PO (21:36)
[2022-10-20] MEDS: Atorvastatin Calcium 20 MG Tablet PO (21:37)
[2022-10-20] MEDS: Acetaminophen 500 MG Tablet 1000 MG PO (21:37)
[2022-10-20] MEDS: Tamsulosin HCl 0.4 MG Capsule PO (21:37)
[2022-10-20 22:01] LABS: Bedside Glucose 119 mg/dL (74-106)
[2022-10-21 03:00] VITALS: BP 108/68; PULSE 61; RESP 16; TEMP 36.7; O2SAT 95
--- NOTE | 2022-10-21 07:14 | ECHOCS_ITS ---
Reason For Study: ELEVATED TROP Procedure This was a 2D Doppler, Color Flow transthoracic echocardiogram. Technically difficult study due to uncooperative patient. Patient scanned in sitting position. Contrast injection was performed. Exam performed portable in patient room. Left Ventricle Normal LV size. Left ventricular systolic function is normal. The estimated ejection fraction is 60 %. Normal diastology for age. No regional wall motion abnormalities noted. Right Ventricle Normal RV size. Normal systolic function. Atria Normal left atrium. Normal right atrium. Mitral Valve Mild mitral annular calcification. There is no mitral valve stenosis. Trivial mitral valve insufficiency. Tricuspid Valve Normal tricuspid valve. Trivial tricuspid valve insufficiency. Unable to estimate RV systolic pressure due to insufficient tricuspid regurgitant envelope. Aortic Valve Moderate diffuse aortic valve thickening. Mild diffuse aortic valve calcification. Moderate aortic stenosis. Peak aortic valve gradient 59 mmHg. Mean aortic valve gradient 38 mmHg. Mild (1+) aortic valve insufficiency. Pulmonic Valve The pulmonic valve is not well visualized. Great Vessels Mildly dilated aortic root. Pericardium/Pleural No pericardial effusion. Medication Diluted definity 3ml given slow IV push to enhance endocardial definition. MMode/2D Measurements & Calculations LVIDd: 4.9 cm IVSd: 1.00 cm LVOT diam: 1.8 cm LVIDs: 3.2 cm LVPWd: 1.3 cm FS: 35.1 % LVOT area: 2.6 cm2 Ao root diam: 4.0 cm LAV(MOD-bp): 63.8 ml LA A4 area: 30.3 cm2 LAV(MOD-bp) Indexed: 26.7 ml/m2 LAV(MOD-sp2): 29.7 ml LAV(MOD-sp4): 100.7 ml LA dimension(2D): 3.6 cm TAPSE: 2.0 cm RA A4 area: 20.0 cm2 Time Measurements MV dec time: 0.23 sec Doppler Measurements & Calculations MV E max dontae: 89.4 cm/sec Lat Peak E' Dontae: 7.3 cm/sec Med Peak E' Dontae: 6.2 cm/sec MV A max dontae: 100.3 cm/sec E/E' lat: 12.2 E/E' med: 14.5 MV E/A: 0.89 MV V2 max: 110.2 cm/sec MV dec slope: 382.1 cm/sec2 Ao V2 max: 384.1 cm/sec MV max P.9 mmHg Ao max P.1 mmHg MV V2 mean: 79.1 cm/sec Ao V2 mean: 294.5 cm/sec MV mean P.7 mmHg Ao mean P.4 mmHg MV V2 VTI: 41.0 cm Ao V2 VTI: 100.2 cm MVA(VTI): 1.4 cm2 AV (velocity ratio): 0.22 LUCAS(I,D): 0.59 cm2 LUCAS(V,D): 0.58 cm2 LV V1 max: 84.9 cm/sec SV(LVOT): 58.7 ml PA V2 max: 84.0 cm/sec LV V1 max P.9 mmHg PA V2 mean: 57.9 cm/sec LV V1 mean P.7 mmHg LV V1 mean: 61.6 cm/sec LV V1 VTI: 22.3 cm ECHO/Echo Complete W/ Contrast Interpretation Summary Technically difficult study. Contrast injection performed. Left ventricular systolic function is normal. The estimated ejection fraction is 60 %. Moderate aortic stenosis. Mild (1+) aortic valve insufficiency. Peak aortic valve gradient 59 mmHg. Mean aortic valve gradient 38 mmHg. Ordering Physician: Ricky Bonner Referring Physician: Marilin Gold M.D. Performed By: Jemma Velázquez RCS
[2022-10-21] MEDS: buPROPion (XL) 150 MG TABLET.XL PO (08:27)
[2022-10-21] MEDS: Aspirin 81 MG TAB.CHEW PO (08:27)
[2022-10-21] MEDS: Carvedilol 12.5 MG Tablet PO (08:27)
[2022-10-21] MEDS: hydroCHLOROthiazide 12.5mg 12.5 MG PO (08:27)
[2022-10-21] MEDS: Enoxaparin 40 MG/0.4 ML Syringe SC (08:27)
[2022-10-21] MEDS: Tamsulosin HCl 0.4 MG Capsule PO (08:27)
[2022-10-21] MEDS: busPIRone 5 MG Tablet PO (08:27)
[2022-10-21 08:54] VITALS: BP 120/57; PULSE 61; RESP 16; TEMP 36.4; O2SAT 94
[2022-10-21 12:10] LABS: Vitamin B12 174 pg/mL (211-911); Vitamin D,25 Hydroxy 67.5 ng/mL
--- NOTE | 2022-10-21 12:15 | CASEMGMT ---
FAMILIA BOB Face to Face with patient for initial transition planning/care coordination assessment. RN LISBETH introduced self and role at [facility]. Patient lying in bed, alert and oriented, at bedside. Patient willing to participate in assessment and is able to answer all questions appropriately. Care providers, pharmacy, and demographics verified. Patient wishes to discharge home will monitor progress with therapy. Patient states he has no further needs or concerns at this time. CM to follow for discharge planning needs that may arise. PCP: Alla Specialists: none Preferred Pharmacy: [facility] Insurance: [employer], [facility] Prescription Benefit: yes Living Will/HPOA: yes, Alis Dunne LNOK: Living Arrangements: Patient lives with in a single story home with [facility]. Patient is independent at home but assists at times Transportation: DME/HHC: Patient has shower chair, raised toilet, cane, crutches, lift chair, grab bars, walker, wheelchair, cpap at home. Patient has been to in the past. Patient has had [facility] HHC in the past. Disposition Plan: TBD, HHC vs SNF pending progress with therapy Alisas WILLAMS, RN, CM
--- NOTE | 2022-10-21 14:24 | CASEMGMT ---
Addendum entered by Alissa Banuelos 10/21/22 15:03: FAMILIA BOB received call back from [facility] and they are able to accept the patient with Thursday start of care. FAMILIA CM updated patient and , no further questions or concerns at this time. RN CM updated hospitalist and discharge plan. Original Note: Therapy recommending home with HHC. FAMILIA CM in to discuss HHC with patient and . A list of C providers including quality and resource use data and consistent with the patient?s preferred geographical region, medical needs, and insurance network were provided from the [employer] Guide. Patient and prefer [facility]. FAMILIA BOB called and left message for referral, awaiting acceptance. CM will continue to follow this patient and plan for a safe discharge.
--- NOTE | 2022-10-21 14:28 | DCINST_ITS ---
Discharge Instructions Diet Discharge Diet: No restrictions Activity Discharge Activity: Return to Normal Activity Weight Bearing Status: Full weight bearing Follow Up Care Test Results: Test results from this visit will be discussed in further detail at your follow- up appointment, if applicable. Discharge Plan Admission Admit Date/Time: 10/20/22 16:39 Primary Reason for Your Visit: debility Attending Provider: Ricky Bonner Primary Care Provider: Marilin Gold Consulting Providers: Annetta Muhammad Instructions Additional Instructions / Restrictions: Follow-up with your primary care doctor regarding some narrowing of your aortic valve which was detected on your echocardiogram, this needs to be monitored with a yearly echocardiogram. Discharge Orders/Prescriptions Prescriptions: Continued Multivitamin 50 Plus 1 EACH tablet 1 ea PO BID Patient Comments: Supplement aspirin 81 MG tablet,chewable 81 mg PO DAILY@0800 Patient Comments: blood thinner cholecalciferol (vitamin D3) [Vitamin D3] 1,000 UNIT capsule 3,000 unit PO DAILY atorvastatin [Lipitor] 80 MG tablet 20 mg PO QHS hydrochlorothiazide 12.5 MG capsule 12.5 mg PO DAILY bupropion HCl 150 MG tablet extended release 24 hr 150 mg PO DAILY buspirone 5 mg Tablet 5 mg PO DAILY carvedilol 25 mg Tablet 12.5 mg PO BID tamsulosin 0.4 mg Capsule 0.4 mg PO BID Referrals / Follow Up: Marilin Gold MD [Primary Care Provider] - Within 1 Month Disposition Disposition (needs filled in before D/C Order can be placed): Home Health Service
--- NOTE | 2022-10-21 14:33 | DS.PCM_ITS ---
Providers Date of Admission: 10/20/22 Date of Discharge: 10/21/22 Primary Care Physician: Dr. Marilin Gold MD Reason For Visit: FUNCTIONAL DECLINE Diagnosis Discharge Diagnosis (1) Accidental fall: Status: Acute Code(s): W19.XXXA - Unspecified fall, initial encounter Plan 1. Acute debility #2 moderate aortic stenosis #3 essential hypertension #4 elevated qejxyuat-yin-WYCQV was ruled out #5 hypokalemia-not felt to be significant Medications at Discharge Home Medications qaqrtnugscoi-kmsgaxkg-pklghj tablet (Multivitamin 50 Plus tablet) 1 ea PO BID supplement 04/09/16 aspirin 81 mg chewable tablet 81 mg PO DAILY@0800 heart 04/15/16 atorvastatin 80 mg tablet (Lipitor) 20 mg PO QHS cholesterol 02/17/17 cholecalciferol (vitamin D3) 25 mcg (1,000 unit) capsule (Vitamin D3) 3,000 unit PO DAILY Supplement 02/17/17 hydrochlorothiazide 12.5 mg capsule 12.5 mg PO DAILY Bp 08/08/17 bupropion HCl 150 mg 24 hr tablet, extended release 150 mg PO DAILY 08/09/17 buspirone 5 mg tablet 5 mg PO DAILY 08/27/21 carvedilol 25 mg tablet 12.5 mg PO BID 08/27/21 tamsulosin 0.4 mg capsule 0.4 mg PO BID 08/27/21 Hospital Course Operations None Procedures 2-D Echocardiogram Summary of Care Provided Minutes Spent on Discharge: 30 Hospital Course: This 72-year-old white male was seen in the emergency room at [facility] for evaluation after he had a fall without injuries in the bathroom of the [place] hospital facility, patient did not want to be evaluated there and asked to come to the hospital here for evaluation. Evaluation in the ER revealed the patient's troponin to be minimally elevated, there is no evidence of ischemic changes on his EKG, patient had no complaints of any chest discomfort. Patient's potassium was slightly low at 3.4. Patient was placed in observation status on PCU, the emergency room doctor here talked with cardiology and they at first suggested that the patient undergo a stress test but, a consult was not written for cardiology and when I talked with cardiology on 10/21/2022, they stated that all the patient needed was an echocardiogram. Patient was seen by PT and OT, it was determined that he would benefit from home PT services, patient did not want to go to an extended care facility. Patient's echocardiogram showed moderate aortic stenosis, cardiology requested that the patient follow-up with their PCP on a routine basis every 6 months to 1 year to get a repeat echo and I relayed this to the patient and his . On 10/21/2022, patient was seen and examined: On examination he appeared in good health and spirits. Vital signs as documented. Skin warm and dry and without overt rashes. Neck without JVD, neck was supple, trachea midline, thyroid was normal. Lungs clear bilaterally, normal air movement was noted. Heart exam notable for regular rhythm, normal sounds and absence of murmurs, rubs or gallops. Abdomen unremarkable and without evidence of organomegaly, masses, or abdominal aortic enlargement. Bowel sounds are present, abdomen is not distended. Extremities nonedematous, no cyanosis was noted, no clubbing was noted. Neuro: Cranial nerves II through XII are grossly intact, no focal motor deficits were noted, sensation to light touch and pinprick intact, motor exam 5/5 throughout. Psych: Patient is alert and oriented x3, he does not appear anxious or depressed, he does not appear agitated. Patient appears stable for discharge on 10/21/2022. Weight / BMI Weight Weight: 128.9 kg Body Mass Index (BMI) 41.9 ABG / Lab / Microbiology Data 10/20/22 12:23 10/20/22 12:23 Laboratory: Laboratory Results - last 24 hr 10/20/22 14:30: Troponin I High Sens 96 H, B-Natriuretic Peptide 40.3 10/20/22 21:35: POC Glucose 119 H 10/21/22 05:50: Vitamin B12 174 L, Vitamin D 25-Hydroxy 67.5 Radiography Diagnostic Testing: Radiology Impression Echocardiogram 10/21/22 07:14 Interpretation Summary Technically difficult study. Contrast injection performed. Left ventricular systolic function is normal. The estimated ejection fraction is 60 %. Moderate aortic stenosis. Mild (1+) aortic valve insufficiency. Peak aortic valve gradient 59 mmHg. Mean aortic valve gradient 38 mmHg. Ordering Physician: Ricky Bonner Referring Physician: Marilin Gold M.D. Performed By: Jemma Velázquez RCS D/C Instructions Discharge Diet: No restrictions Weight Bearing Status: Full weight bearing Meaningful Use Info Meaningful Use Diagnoses (Choose all that apply): None applicable Discharge Plan Admission Admit Date/Time: 10/20/22 16:39 Primary Reason for Your Visit: debility Attending Provider: Ricky Bonner Primary Care Provider: Marilin Gold Consulting Providers: Annetta Muhammad Instructions Additional Instructions / Restrictions: Follow-up with your primary care doctor regarding some narrowing of your aortic valve which was detected on your echocardiogram, this needs to be monitored with a yearly echocardiogram. Discharge Orders/Prescriptions Prescriptions: Continued Multivitamin 50 Plus 1 EACH tablet 1 ea PO BID Patient Comments: Supplement aspirin 81 MG tablet,chewable 81 mg PO DAILY@0800 Patient Comments: blood thinner cholecalciferol (vitamin D3) [Vitamin D3] 1,000 UNIT capsule 3,000 unit PO DAILY atorvastatin [Lipitor] 80 MG tablet 20 mg PO QHS hydrochlorothiazide 12.5 MG capsule 12.5 mg PO DAILY bupropion HCl 150 MG tablet extended release 24 hr 150 mg PO DAILY buspirone 5 mg Tablet 5 mg PO DAILY carvedilol 25 mg Tablet 12.5 mg PO BID tamsulosin 0.4 mg Capsule 0.4 mg PO BID Referrals / Follow Up: Marilin Gold MD [Primary Care Provider] - Within 1 Month Disposition Disposition (needs filled in before D/C Order can be placed): Home Health Service Charges/Coding Visit Charges Inpatient E&M: 30185 Disch Hosp
[2022-10-21 14:42] VITALS: BP 98/63; PULSE 65; RESP 16; TEMP 37; O2SAT 95
[2022-10-21] MEDS: Acetaminophen 500 MG Tablet 1000 MG PO (14:44)
--- NOTE | 2022-10-21 15:33 | PHA.DC_ITS ---
Pharmacy [place] Med Reconciliation Pharmacy Service has performed discharge medication reconciliation for this patient. No new medications at time of discharge. Medications reviewed are from previously reported home medications. Medication list reviewed by Volodymyr Mclean PharmD candidate The patient's discharge medication list was reviewed for discrepancies and dis crepancies were resolved. Medications at Discharge Home Medications ducxsefdrhnf-kalbzrna-cpvwma tablet (Multivitamin 50 Plus tablet) 1 ea PO BID supplement 04/09/16 aspirin 81 mg chewable tablet 81 mg PO DAILY@0800 heart 04/15/16 atorvastatin 80 mg tablet (Lipitor) 20 mg PO QHS cholesterol 02/17/17 cholecalciferol (vitamin D3) 25 mcg (1,000 unit) capsule (Vitamin D3) 3,000 unit PO DAILY Supplement 02/17/17 hydrochlorothiazide 12.5 mg capsule 12.5 mg PO DAILY Bp 08/08/17 bupropion HCl 150 mg 24 hr tablet, extended release 150 mg PO DAILY 08/09/17 buspirone 5 mg tablet 5 mg PO DAILY 08/27/21 carvedilol 25 mg tablet 12.5 mg PO BID 08/27/21 tamsulosin 0.4 mg capsule 0.4 mg PO BID 08/27/21
== END 2022-10-21 14:33 | disposition home health service (06) ==
LOC: ED 16:59 → PCU 17:05
PROVIDERS: Admitting Provider Internal Medicine; Emergency Provider Emergency Medicine; PCP Family Medicine; Visit Provider Internal Medicine
DX: R53.81 Other malaise (principal); E66.01 Morbid (severe) obesity due to excess calories; Z68.41 Body mass index [BMI] 40.0-44.9, adult; I10 Essential (primary) hypertension; W19.XXXA Unspecified fall, initial encounter; R53.1 Weakness; S09.8XXA Other specified injuries of head, initial encounter; E78.5 Hyperlipidemia, unspecified; R77.8 Other specified abnormalities of plasma proteins; Z79.82 Long term (current) use of aspirin; Z87.891 Personal history of nicotine dependence; S16.1XXA Strain of muscle, fascia and tendon at neck level, initial encounter; R51.9 Headache, unspecified; E87.6 Hypokalemia; Z79.899 Other long term (current) drug therapy; Y92.89 Other specified places as the place of occurrence of the external cause; I35.0 Nonrheumatic aortic (valve) stenosis; I44.0 Atrioventricular block, first degree; I49.3 Ventricular premature depolarization
CPT/HCPCS: 36415; 70450; 71046; 72070; 72125; 80048; 81001; 82306; 82607; 82962; 83880; 84484; 85025; 93005; 93306; 96372; 97162; 97166; 99221; 99285; A4216; C8929; G0378

== ENCOUNTER 2023-02-08 20:38 | Inpatient (IN) | payer MEDICARE, SELFPAY ==
[2023-02-08 20:39] VITALS: BP 130/45; PULSE 94; RESP 17; TEMP 36.9; O2SAT 92; BMI 43.1
--- NOTE | 2023-02-08 21:09 | EKG12_ITS ---
Test Reason : SOB Blood Pressure : / mmHG Vent. Rate : 095 BPM Atrial Rate : 095 BPM P-R Int : 216 ms QRS Dur : 122 ms QT Int : 376 ms P-R-T Axes : 062 -49 090 degrees QTc Int : 472 ms Sinus rhythm with 1st degree A-V block Left anterior fascicular block Left ventricular hypertrophy with QRS widening and repolarization abnormality ( R in aVL , [place] pr oduct ) Abnormal ECG Confirmed by FLYNN CHRISTIANSEN, ELISA ([id number]), editor dictionary BRADY MURRY ([id number]) on 02/10/2023 11:58:14 AM Referred By: Confirmed By:ELISA PRUETT MD
--- NOTE | 2023-02-08 21:20 | RAD_ITS ---
STUDY: X-RAY CHEST REASON FOR EXAM: Male, 72 years old. Cough TECHNIQUE: Single frontal view of the chest. COMPARISON: October 20, 2022 FINDINGS: Right lower lobe interstitial infiltrate There is no demonstrated pleural abnormality. Normal size heart. Normal mediastinum and awa. Normal visualized pulmonary arteries. Normal visualized aortic arch and descending thoracic aorta. Normal visualized thoracic spine. Normal visualized ribs, clavicles, and shoulders. There is no demonstrated abnormality of the visualized soft tissue structures of the upper abdomen. RAD/Chest 1 View (Portable) IMPRESSION: Right lower lobe infiltrate Electronically Signed: Alexey Kraus MD at 21:41 EDT ,
[2023-02-08 21:44] LABS: Absolute Neutrophil Count 6.8 X10^3/uL (2.0-7.7); Basophil# 0.04 X10^3/uL; Basophil% 0.4 % (0-1); Eosinophil# 0.18 X10^3/uL; Eosinophils% 1.9 % (0-5); Hematocrit 41.2 % (40-54); Hemoglobin 13.9 g/dL (13.0-16.5); Lymphocyte % 13.9 % (19-41); Mean Corp Hgb Conc 33.7 g/dL (32-36); Mean Platelet Vol. 10.1 fl (6.2-12.0); Monocyte% 10.7 % (0-10); NRBC Flagged by Analyzer 0 % (0-5); Neutrophil # 6.81 X10^3/uL (2.7-7.7); Neutrophil % 72.8 % (47-70); Platelet Count 196 K/mm3 (150-450); RBC Distribution Width CV 13.2 % (11.6-14.6); RBC Distribution Width SD 40.9 fl (35.1-43.9); Red Blood Count 4.79 M/mm3 (4.6-6.2); White Blood Count 9.4 K/mm3 (4.4-11.0)
[2023-02-08 21:47] VITALS: BP 137/88; PULSE 101; RESP 24; TEMP 36.6; O2SAT 97
[2023-02-08 22:00] VITALS: BP 136/70; PULSE 97; RESP 18; TEMP 36.8; O2SAT 97
[2023-02-08 22:03] LABS: ALB/GLOB Ratio 0.8 RATIO (0.9-2.4); AST(SGOT) 19 U/L (15-37); Alanine Aminotransfer ALT/SGPT 26 U/L (16-61); Albumin, Serum 3.3 g/dL (3.2-5.0); Alkaline Phosphatase 63 U/L (45-117); Anion Gap 8 (5-15); BUN 18 mg/dL (7-18); BUN/Creat Ratio 21.3 RATIO (10-20); Calcium,Total 8.7 mg/dL (8.5-10.1); Chloride 99 mmol/L (98-107); Creatinine, Serum 0.84 mg/dL (0.70-1.30); EST Glomerular Filtration Rate 95 mL/min (>60); Est Glom Filt Rate - Afr Amer 114 mL/min (>60); Estimated Creatinine Clearance 78.32 ml/min; Globulin 4.2 g/dL (2.2-4.2); Glucose 128 mg/dL (74-106); Potassium 3.3 mmol/L (3.5-5.1); Protein, Total 7.5 g/dL (6.4-8.2); Sodium Level 135 mmol/L (136-145); Troponin-I HS 70 pg/mL (3.0-78.0)
[2023-02-08 22:10] LABS: Lactic Acid 1.8 mmol/L (0.4-1.9)
--- NOTE | 2023-02-08 22:19 | EX.ED.DYSGE1 ---
HPI History of Present Illness Chief Complaint: Shortness of Breath Detail of Chief Complaint: Shortness of breath, increased weakness over the past 2 weeks. Informant: patient, spouse/S.O. and family Onset/Context/Timing Onset: Weeks (Onset 2 weeks ago) Context: Gradual Onset Timing: Continuous Quality: Generalized weakness, shortness of breath and mass right axilla Location: Not applicable Maximum Severity: Moderate Worsened by: Upright position Relieved by: Nothing Associated Symptoms Associated Symptoms: Slight cough, poor p.o. intake Narrative Narrative: Patient is a 72-year-old obese gentleman who presents because of increased weakness over the past 2 weeks. He is unable to care for himself. He is unable to stand. He needs a lift belt for family to get him up. This has been an issue for a couple of months. It is gotten worse to the point he is not able to help. There is no history of fall or head trauma. He denies headache. He denies visual, ocular auditory symptoms. He denies trouble with speech or swallowing. He denies chest discomfort. He does endorse shortness of breath and cough. The cough is nonproductive. Patient and family think the lump that is in the right axilla is due to a fall. He denies weight loss or night sweats. He denies nausea, vomiting or diarrhea. He denies dysuria or frequency. He has had problems with incontinence for several months. He denies hematuria. He denies back or flank pain. He does have edema of his legs. This is worse than normal. Past history of PTSD, hypertension, acute ischemic stroke, decreased mobility and morbid obesity. Prior similar symptoms: Yes Recent Illness/Hospitalization: No [facility] Medical History Accidental fall Acute cervical myofascial strain Acute eczema Closed head injury without loss of consciousness Elevated troponin Generalized weakness HLD (hyperlipidemia) HTN (hypertension) Stroke Home Medications erniplfjkigq-osfavfvg-vozqgg tablet (Multivitamin 50 Plus tablet) 1 ea PO BID supplement 04/09/16 [History Last Taken 08/07/17 09:00 1 tab] aspirin 81 mg chewable tablet 81 mg PO DAILY@0800 heart 04/15/16 [History Last Taken 08/07/17 09:00 81 mg] atorvastatin 80 mg tablet (Lipitor) 20 mg PO QHS cholesterol 11/07/17 [History Last Taken 08/06/17 21:00 80 mg] cholecalciferol (vitamin D3) 25 mcg (1,000 unit) capsule (Vitamin D3) 3,000 unit PO DAILY Supplement 02/17/17 [History Last Taken 08/07/17 09:00 3,000 units] hydrochlorothiazide 12.5 mg capsule 12.5 mg PO DAILY Bp 08/08/17 [History Last Taken 08/07/17 09:00 12.5mg] bupropion HCl 150 mg 24 hr tablet, extended release 150 mg PO DAILY 08/09/17 [History Last Taken Unknown] buspirone 5 mg tablet 5 mg PO BID 08/27/21 [History Last Taken Unknown] tamsulosin 0.4 mg capsule 0.4 mg PO BID 08/27/21 [History Last Taken Unknown] atorvastatin 40 mg tablet 20 mg PO DAILY 02/08/23 [History Last Taken Unknown] carvedilol 6.25 mg tablet 6.25 mg PO BID 02/08/23 [History Last Taken Unknown] Allergy/AdvReac Type Severity Reaction Status Date / Time lisinopril AdvReac Other Verified 02/08/23 20:52 losartan AdvReac Other Verified 02/08/23 20:52 Social History (Updated 02/08/23 @ 22:[address] Ruben Brown MD) household members: spouse housing: house Smoking Status: Former smoker ROS ROS ED Constitutional Constitutional ED: Denies chills, fever(s), subjective, sweats or weight loss Eyes Eyes: Denies blurry vision, change in vision or diplopia ENT ENT ED: Denies ear pain, rhinorrhea or sore throat Cardiovascular Cardiovascular: Reports orthopnea; Denies chest pain, palpitations or paroxysmal nocturnal dyspnea Respiratory/Chest Respiratory/Chest: Reports cough, dyspnea, dyspnea on exertion and orthopnea; Denies paroxysmal nocturnal dyspnea Gastrointestinal Gastrointestinal: Denies abdominal pain, nausea or vomiting Genitourinary Genitourinary ED: Reports other Details: Positive incontinence. ; Denies dysuria, hematuria or urinary frequency Musculoskeletal Musculoskeletal: Denies arthralgias, back pain, myalgias or neck pain Integumentary Reports other Details: Mass right axilla Neurologic Neurologic: Reports headache(s), paresthesias and weakness Psychiatric Psychiatric: Reports depression Hematologic/Lymphatic Hematologic/Lymphatic: Reports systems reviewed and no addt'l complaints, except as documented EXAM Physical Exam Const Vital Signs: 02/08/23 20:39 02/08/23 20:48 02/08/23 20:50 Temperature 98.4 F Temperature Source Oral Pulse Rate 94 Respiratory Rate 17 Respiratory Effort Normal Normal Respiratory Depth Normal Normal Respiratory Pattern Normal Normal Blood Pressure 130/45 H Blood Pressure Mean 73 Pulse Ox 92 Oxygen Delivery Method Room Air Room Air Room Air 02/08/23 21:47 02/08/23 22:41 02/08/23 22:00 Temperature 97.8 F 98.3 F Temperature Source Temporal Oral Pulse Rate 101 H 108 H 97 Respiratory Rate 24 H 17 18 Respiratory Effort Respiratory Depth Respiratory Pattern Blood Pressure 137/88 H 136/70 H Blood Pressure Mean 104 92 Pulse Ox 97 97 Oxygen Delivery Method Room Air Room Air 02/08/23 23:00 Temperature 98.3 F Temperature Source Oral Pulse Rate 101 H Respiratory Rate 22 H Respiratory Effort Respiratory Depth Respiratory Pattern Blood Pressure 130/72 H Blood Pressure Mean 91 Pulse Ox 85 Oxygen Delivery Method Positive well nourished and well developed Constitutional Narrative: Patient had an erroneous low blood pressure reading. After adjustment of cuff his pressure was normal. Patient does not appear well. General Appearance ED: well developed; Negative for cyanotic or diaphoretic HEENT Reports dry mucous membranes HEENT Narrative: Head is atraumatic and normocephalic. Ears are normal. TMs are normal. Nares are patent. Posterior pharynx is unremarkable. Uvula is midline. There is no deviation with protrusion. Mouth ED: Yes dry mucous membranes Mouth: dry mucous membranes Eyes PERRL and EOMs intact bilaterally General Eye ED: Negative for pale conjunctiva or scleral icterus Neck no lymphadenopathy, supple and no JVD Neck Narrative: Trachea is midline. There is dried her. Chest Wall inspection of chest normal and palpation of chest normal Resp normal respiratory effort and No clear to auscultation bilaterally Resp Narrative: There is a 4 cm irregularly-shaped hard nodular mass inferior to the right axilla. There is no dermatologic changes suggest bruising. Uncertain what this mass represents. With no bruising and reported fall 2 weeks ago suspect this mass was incidentally found and not related to the trauma. Auscultation: rales bilateral base and wheezes expiratory wheezes and throughout Cardio regular rate, regular rhythm, S1 normal heart sound, S2 normal heart sound and no murmurs GI normal to inspection, nondistended, normoactive bowel sounds, non-tender, non-distended and no masses; Negative for hepatosplenomegaly Palpation: soft Back/Spine no CVA tenderness Extremity General Extremety ED: Yes edema; Negative for tenderness General Extremity: edema Neuro oriented x3 and CN's II-XII intact bilaterally Neuro Narrative: Patient is awake but not alert. Psych Mood & Affect: depressed Skin Skin Narrative: Mass inferior right axilla. MDM MDM MDM Narrative Medical decision making narrative: Nurse informed me that he has hematuria. Urine was obtained by straight cath. She informed there is a significant mount of clots. Review of meds indicates he is on a baby aspirin a day. He is on no anticoagulant. Urine color was sent as well as UA. Will obtain CBC to assess white count and H&H. Competence metabolic panel to assess for any endorgan dysfunction that can explain his symptoms. Lactate was obtained to determine if there is any abnormal normality regarding perfusion since he did have low blood pressure readings initially. This was felt to be due to improper positioning and placement of blood pressure cuff. History & Record Review Discussion w/independent historian: Patient and Family Additional record(s) reviewed:: Prior inpatient record (Admission in October for frequent falls. Also stroke 2017.), Prior outpatient record (Orthopedic procedure for joint), Prior ED visit and Prior labs Lab Data Attestation: I reviewed the patient's lab results. Lab results narrative: White count and differential are unremarkable. H&H is low. Lactate is normal at 1.8. Comprehensive metabolic panel is remarked for slight elevation glucose of 128. Urine is positive for ketones and occult blood. Micro is pending. Labs: Laboratory Results - last 24 hr 02/08/23 02/08/23 21:15 22:20 WBC 9.4 RBC 4.79 Hgb 13.9 Hct 41.2 MCV 86.0 MCH 29.0 MCHC 33.7 RDW Std Deviation 40.9 RDW Coeff of Letty 13.2 Plt Count 196 MPV 10.1 Immature Gran % (Auto) 0.300 Neut % (Auto) 72.8 H Lymph % (Auto) 13.9 L [place] % (Auto) 10.7 H Eos % (Auto) 1.9 Baso % (Auto) 0.4 Absolute Neuts (auto) 6.8 Absolute Lymphs (auto) 1.30 Nucleated RBC % 0 Sodium 135 L Potassium 3.3 L Chloride 99 Carbon Dioxide 28.0 Anion Gap 8 BUN 18 Creatinine 0.84 Estim Creat Clear Calc 78.32 Est GFR (MDRD) Af Amer 114 Est GFR (MDRD) Non-Af 95 BUN/Creatinine Ratio 21.3 H Glucose 128 H Lactic Acid 1.8 Calcium 8.7 Total Bilirubin 0.90 AST 19 ALT 26 Alkaline Phosphatase 63 Troponin I High Sens 70 Total Protein 7.5 Albumin 3.3 Globulin 4.2 Albumin/Globulin Ratio 0.8 L Urine Color Straw Urine Clarity Clear Urine pH 7.0 Ur Specific [place] 1.005 Urine Protein Negative Urine Glucose (UA) Normal Urine Ketones 5 H Urine Occult Blood 250 H Urine Nitrite Negative Urine Bilirubin Negative Urine Urobilinogen Normal Ur Leukocyte Esterase Negative Urine RBC 0-5 SEEN Urine WBC 0 SEEN Ur Squamous Epith Cells 0-5 SEEN Urine Bacteria 0 SEEN Urine Mucus 0 SEEN Radiography Chest X-Ray - ED: 1 View and Read by ED Physician (Single view portable chest x-ray reveals interstitial markings right lower lobe. This may be due to poor inspiration. When compared to chest x-ray obtained October of this year there is minimal difference. The left heart border is obscured in comparison to the October film. Heart appears slightly enla) Diagnostic Testing: Clinical Impression(s) from Imaging Studies Chest X-Ray 02/08/23 21:20 IMPRESSION: Right lower lobe infiltrate Electronically Signed: Alexey Kraus MD at 21:41 EDT Reading Location ID and State: [facility] / [place] Tel , Service support , The report by radiologist was read. I am uncertain whether this represents an infiltrate or atelectasis or poor inspiration. Of note this was noted October 2022 as well. EKG Initial EKG: Attestation: I personally reviewed and interpreted this EKG as follows: Interpretation: Sinus Rhythm (Sinus rhythm first-degree AV block. Rate is 95. There is a left anterior fascicular block. There is evidence of LVH. IN interval is 216 ms per cures duration 122 ms. QT durations 176 ms. [place] is to the left) Treatment and Re-Evaluation :: Patient was reevaluated at 2317. He is still wheezing bilaterally. He does have egophony right lower lobe posterior. There is no egophony noted on the left. We will treat for commune acquired pneumonia. Since patient's lactate is normal and there is no evidence of endorgan dysfunction blood cultures were not obtained. Discharge Plan Dx/Rx/DC Orders Clinical Impression: Right lower lobe pneumonia, Hypertension, Decreased mobility, Acute bronchospasm, Generalized weakness, Morbid obesity, Hematuria, gross Disposition Disposition: Acute Care Hospital [facility]
[2023-02-08 22:27] LABS: Bacteria 0 SEEN /hpf (None Seen); Mucous, Urine 0 SEEN /hpf (<or=2+); White Blood Cells 0 SEEN /hpf (0-5)
[2023-02-08 22:31] LABS: Color, Urine Straw (Yellow); Glucose, Dipstick Normal (Normal); Ketone-Dipstick 5 mg/dl (Negative); Leukocyte Esterase-Dipstick Negative /ul (Negative); Nitrite-Dipstick Negative (Negative); Occult Blood-Urine 250 /ul (Negative); Protein-Dipstick Negative (Negative); Specific Gravity, Urine 1.005 (1.002-1.030); Urine Bilirubin Dipstick Negative (Negative); Urine Clarity Clear (Clear); Urine Urobilinogen Normal (Normal)
[2023-02-08] MEDS: Albuterol 2.5 MG/3 ML VIAL.NEB. INHALATION ×3 (22:40)
[2023-02-08 22:41] VITALS: PULSE 108; RESP 17
[2023-02-08 22:48] LABS: Red Blood Cells-Urine 0-5 SEEN /hpf (0-5); Squamous Epithelial Cells - UA 0-5 SEEN /hpf (0-5)
[2023-02-08 23:00] VITALS: BP 130/72; PULSE 101; RESP 22; TEMP 36.8; O2SAT 85
[2023-02-08] MEDS: Ceftriaxone 2 GM in 0.9% Normal Saline (50mL MB+) 50 ML IV (23:30)
[2023-02-09] VITALS (9 sets, daily range): BP systolic 100–123; BP diastolic 61–71; PULSE 73–93; RESP 18–22; TEMP 36.4–37.3; O2SAT 91–99; BMI 41.5
[2023-02-09] MEDS: Azithromycin 500 MG in Dextrose 5%-Water (250mL Bag) 250 ML 250 MG IV ×2 (00:18→22:21)
--- NOTE | 2023-02-09 00:38 | HP.PCM.HOS_ITS ---
HPI - General General Date of Admission: 02/09/23 Date of Service: 02/09/23 Chief Complaint: Weakness HPI Narrative HARRIS CLEMENS, is a 72 M with a significant history of hypertension and BPH who presents to the emergency department with 1 week history of progressively worsening weakness. Associated with his symptoms is shortness of breath and chest congestion. He is coughing but unable to expectorate his sputum. He complains of a knot in his right armpit. Nurse reported patient had blood in his underwear. He also had gross hematuria and a 2 blood clots came out as his urine was being suctioned. He complains of chronic neck and back pain and for which reason he sleeps in a chair. [facility] Medical History (Updated 02/09/23 @ 03:[address] Kendall Freedman MD) Accidental fall Acute cervical myofascial strain Acute eczema Closed head injury without loss of consciousness CPAP (continuous positive airway pressure) dependence Elevated troponin Former smoker Generalized weakness HLD (hyperlipidemia) HTN (hypertension) Murmur, cardiac Sleep apnea Stroke Home Medications [id number]-tylbczdk-[id number] tablet (Multivitamin 50 Plus tablet) 1 ea PO BID supplement 04/09/16 [History Last Taken 08/07/17 09:00 1 tab] aspirin 81 mg chewable tablet 81 mg PO DAILY@0800 heart 04/15/16 [History Last Taken 08/07/17 09:00 81 mg] atorvastatin 80 mg tablet (Lipitor) 20 mg PO QHS cholesterol 02/17/17 [History Last Taken 08/06/17 21:00 80 mg] cholecalciferol (vitamin D3) 25 mcg (1,000 unit) capsule (Vitamin D3) 3,000 unit PO DAILY Supplement 02/17/17 [History Last Taken 08/07/17 09:00 3,000 units] hydrochlorothiazide 12.5 mg capsule 12.5 mg PO DAILY Bp 08/08/17 [History Last Taken 08/07/17 09:00 12.5mg] bupropion HCl 150 mg 24 hr tablet, extended release 150 mg PO DAILY 08/09/17 [History Last Taken Unknown] buspirone 5 mg tablet 5 mg PO BID 08/27/21 [History Last Taken Unknown] tamsulosin 0.4 mg capsule 0.4 mg PO BID 08/27/21 [History Last Taken Unknown] atorvastatin 40 mg tablet 20 mg PO DAILY 02/08/23 [History Last Taken Unknown] carvedilol 6.25 mg tablet 6.25 mg PO BID 02/08/23 [History Last Taken Unknown] Allergy/AdvReac Type Severity Reaction Status Date / Time lisinopril AdvReac Other Verified 02/08/23 20:52 losartan AdvReac Other Verified 02/08/23 20:52 Family History Other Diabetes Surgical History History of tonsillectomy Social History household members: spouse housing: house Smoking Status: Former smoker ROS ROS Narrative Pertinent positives and pertinent negatives as noted in HPI. All other systems were reviewed and are negative Vital Signs Vital Signs Vital Signs: 02/08/23 20:39 02/08/23 20:48 02/08/23 20:50 Temperature 98.4 F Temperature Source Oral Pulse Rate 94 Respiratory Rate 17 Respiratory Effort Normal Normal Respiratory Depth Normal Normal Respiratory Pattern Normal Normal Blood Pressure 130/45 H Blood Pressure Mean 73 Pulse Ox 92 Oxygen Delivery Method Room Air Room Air Room Air 02/08/23 21:47 02/08/23 22:41 02/08/23 22:00 Temperature 97.8 F 98.3 F Temperature Source Temporal Oral Pulse Rate 101 H 108 H 97 Respiratory Rate 24 H 17 18 Respiratory Effort Respiratory Depth Respiratory Pattern Blood Pressure 137/88 H 136/70 H Blood Pressure Mean 104 92 Pulse Ox 97 97 Oxygen Delivery Method Room Air Room Air 02/08/23 23:00 Temperature 98.3 F Temperature Source Oral Pulse Rate 101 H Respiratory Rate 22 H Respiratory Effort Respiratory Depth Respiratory Pattern Blood Pressure 130/72 H Blood Pressure Mean 91 Pulse Ox 85 Oxygen Delivery Method Weight Weight: 132.4 kg Body Mass Index (BMI) 43.1 Physical Exam Narrative Physical exam: General: Well-nourished, well-developed. Head: Normocephalic, atraumatic, no tenderness Eyes: Vision is grossly intact. EOMI ENT, no trauma, moist mucous membranes, no rhinorrhea Neck: Nontender, No thyromegaly. CVS: Tachycardia. S1-S2 present. Murmur present (states chronic) Respiratory : Tachypnea. Rhonchi, chest wall nontender Abdomen: Soft, nontender, nondistended, normal bowel sounds, no masses : Deferred Back: Nontender, no CVA tenderness, no midline spinal tenderness, deformities, step-offs Extremities: Edema of bilateral feet. Swelling of lymph node in the right armpit. Skin: Normal color, no trauma, abrasions Neuro: Alert, oriented, cranial nerves II through XII grossly intact. Psychiatry: Normal mood. Normal affect. Not depressed. Not anxious. Results Lab / Micro Data 02/08/23 21:15 02/08/23 21:15 Labs: Laboratory Results - last 24 hr 02/08/23 21:15: WBC 9.4, RBC 4.79, Hgb 13.9, Hct 41.2, MCV 86.0, MCH 29.0, MCHC 33.7, RDW Std Deviation 40.9, RDW Coeff of Letty 13.2, Plt Count 196, MPV 10.1, Immature Gran % (Auto) 0.300, Neut % (Auto) 72.8 H, Lymph % (Auto) 13.9 L, [place] % (Auto) 10.7 H, Eos % (Auto) 1.9, Baso % (Auto) 0.4, Absolute Neuts (auto) 6.8, Absolute Lymphs (auto) 1.30, Nucleated RBC % 0, Sodium 135 L, Potassium 3.3 L, Chloride 99, Carbon Dioxide 28.0, Anion Gap 8, BUN 18, Creatinine 0.84, Estim Creat Clear Calc 78.32, Est GFR (MDRD) Af Amer 114, Est GFR (MDRD) Non-Af 95, BUN/Creatinine Ratio 21.3 H, Glucose 128 H, Lactic Acid 1.8, Calcium 8.7, Total Bilirubin 0.90, AST 19, ALT 26, Alkaline Phosphatase 63, Troponin I High Sens 70, Total Protein 7.5, Albumin 3.3, Globulin 4.2, Albumin/Globulin Ratio 0.8 L 02/08/23 22:20: Urine Color Straw, Urine Clarity Clear, Urine pH 7.0, Ur S pecific [place] 1.005, Urine Protein Negative, Urine Glucose (UA) Normal, Urine Ketones 5 H, Urine Occult Blood 250 H, Urine Nitrite Negative, Urine Bilirubin Negative, Urine Urobilinogen Normal, Ur Leukocyte Esterase Negative, Urine RBC 0-5 SEEN, Urine WBC 0 SEEN, Ur Squamous Epith Cells 0-5 SEEN, Urine Bacteria 0 SEEN, Urine Mucus 0 SEEN Radiology Impression Chest X-Ray 02/08/23 21:20 IMPRESSION: Right lower lobe infiltrate Electronically Signed: Alexey Kraus MD at 21:41 EDT Reading Location ID and State: [address] [place] [address] Tel , Service support , Assessment & Plan Assessment/Plan (1) Morbid obesity: (2) Hematuria, gross: (3) Generalized weakness: (4) Right lower lobe pneumonia: QUALIFIERS: Pneumonia type: due to unspecified organism Qualified Code(s): J18.9 - Pneumonia, unspecified organism PLAN: Plan Pneumonia Gram-positive, gram-negative or atypical Radiologist impression of chest x-ray: Right lower lobe infiltrates. Chest x-ray was independently interpreted by hospitalist: Agrees with radiology interpretation Antibiotics: Started on ceftriaxone and azithromycin emergency department and continued. DuoNeb as needed ordered Legionella antigen screen and Strep antigen ordered CBC showed normal white count on presentation, trend Generalized weakness PT and OT to work with patient. Case management consult. Morbid Obesity: BMI: 41.6 kg/m?. Complicates care. Lifestyle modification recommended. Gross hematuria Reportedly gross hematuria was noted at the ED. Urine occult blood positive but normal urine RBC. Check CPK Trend CBC. If persists consider urology consult or referral upon discharge as necessary. DVT prophylaxis SCDs ordered. No chemical thromboprophylaxis secondary to gross hematuria. Time spent in the patient's overall evaluation,decision-making process, review of diagnostic data, adjustment of management, discussion with other providers, nursing and ancillary staff involved in patient's care documentation, 75 minutes. Charges/Coding Visit Charges Inpatient E&M: 29858 Init Hosp L3
[2023-02-09 06:54] LABS: Absolute Lymphocyte Count 1.58 X10^3/uL (0.83-4.51); Absolute Neutrophil Count 5.2 X10^3/uL (2.0-7.7); Basophil# 0.02 X10^3/uL; Basophil% 0.3 % (0-1); Eosinophil# 0.15 X10^3/uL; Eosinophils% 1.9 % (0-5); Hematocrit 38.1 % (40-54); Hemoglobin 12.4 g/dL (13.0-16.5); Lymphocyte # 1.58 X10^3/ul (0.83-4.51); Lymphocyte % 19.8 % (19-41); Mean Corp Hgb Conc 32.5 g/dL (32-36); Mean Corpuscular Hgb 28.2 pg (27.0-32.0); Mean Corpuscular Volume 86.8 fL (80-94); Mean Platelet Vol. 10.3 fl (6.2-12.0); Monocyte# 1.01 X10^3/uL; Monocyte% 12.7 % (0-10); NRBC Flagged by Analyzer 0 % (0-5); Neutrophil # 5.18 X10^3/uL (2.7-7.7); Platelet Count 193 K/mm3 (150-450); RBC Distribution Width CV 13.2 % (11.6-14.6); RBC Distribution Width SD 41.8 fl (35.1-43.9); Red Blood Count 4.39 M/mm3 (4.6-6.2)
[2023-02-09 07:15] LABS: Anion Gap 5 (5-15); BUN 14 mg/dL (7-18); BUN/Creat Ratio 19.9 RATIO (10-20); CPK Total, Creatine Kinase 162 U/L (39-308); Calcium,Total 8.4 mg/dL (8.5-10.1); Chloride 104 mmol/L (98-107); EST Glomerular Filtration Rate 117 mL/min (>60); Est Glom Filt Rate - Afr Amer 141 mL/min (>60); Estimated Creatinine Clearance 65.79 ml/min; Glucose 110 mg/dL (74-106); Potassium 3.1 mmol/L (3.5-5.1); Sodium Level 139 mmol/L (136-145)
[2023-02-09] MEDS: Tamsulosin HCl 0.4 MG Capsule PO ×2 (09:09→21:39)
[2023-02-09] MEDS: Cholecalciferol (VIT D3) 25 MCG TABLET (1,000 UNITS) 75 MCG PO (09:09)
[2023-02-09] MEDS: hydroCHLOROthiazide 12.5mg 12.5 MG PO (09:09)
[2023-02-09] MEDS: buPROPion (XL) 150 MG TABLET.XL PO (09:09)
[2023-02-09] MEDS: Multivitamins,Ther W-Minerals Tablet 1 TABLET PO ×2 (09:09→16:45)
[2023-02-09] MEDS: Carvedilol 6.25 MG Tablet PO ×2 (09:10→16:45)
[2023-02-09] MEDS: Aspirin 81 MG TAB.CHEW PO (09:10)
[2023-02-09] MEDS: busPIRone 5 MG Tablet PO ×2 (09:10→21:39)
[2023-02-09] MEDS: Flu Vacc QS2023-24(65YR UP)/PF 240 MCG/0.7 ML Syringe IM (09:13)
--- NOTE | 2023-02-09 09:35 | PCM.PN.BLA ---
Progress Note Continue with antibiotics for his right lower lobe pneumonia, he does have a little bit of a wet cough we will transition his DuoNebs from nightly to as needed
[2023-02-09] MEDS: Ipratropium/Albuterol Sulfate 3 ML AMPUL.NEB INHALATION (09:58)
--- NOTE | 2023-02-09 10:20 | CASEMGMT ---
Addendum entered by Klarissa Ashton 02/09/23 12:09: Living Will/HCPOA: Yes and Yes; , Alis, is POA. Pt. uses lift chair to get into home. Original Note: FAMILIA BOB Assessment: Face to Face with pt for initial transition planning/care coordination assessment. t's comes into the room about half way through the assessment. FAMILIA BOB introduced self and role at [facility], pt voices understanding and consents to assessment. Pt is A&O x4 and answers all questions appropriately at this time. Care providers, pharmacy, and demographics verified/updated. Admitting Dx: Pneumonia, Debility PCP: Alla Specialists: [facility] [place]), [employer] Mechanic (Pt. and unsure of name) Preferred Pharmacy:[facility] ([facility]) Insurance:[place] Secure Prescription Benefit: yes LNOK: Alis Dunne () Living Arrangements: Pt lives with in a 1 story [facility] home. 4 steps w/railing to enter (pt. states he uses a lift chair to enter the home; 12 steps and no railing to basement (Pt. states he does not go to the basement). Pt. states prior to this admission, he was able to dress himself (except for his socks and shoes) and toilet himself, but his assisted him with bathing. Pt. states his does IADLs. Transportation: and son, [place] D[employer]: Shower Chair, raised toilet seat, cane, lift chair, grab bars, hand held shower, walker (uses at baseline in the home), W/ (uses at baseline outside of the home), medical alert system, CPAP. HHC/SNF: Denies previous SNF; [facility] in July 2022 Pt states he feels it is time for himm to go to a SNF as it is too much for his to care for him at home. Pt. and Pt's are open to SNF if needed. Pt's states their family member is already looking into a SNF ([facility] in [place]). Pt states no further concerns/needs. CM to follow. Advised pt to ask CM if any further question/concerns/needs arise, voices understanding. Pt Goal: SNF Plan: Plan for possible SNF. Follow PT/OT. SW informed/updated.
--- NOTE | 2023-02-09 11:48 | NURSING ---
pt spouse at bedside, she has brought in pt own cpap machine and also states that they copied his medication list from all of the bottles that we brought in yesterday in the ER, i watched them put them all in the computer.
--- NOTE | 2023-02-09 12:14 | CASEMGMT ---
Discharge Planning A list of SNF providers including quality and resource use data and consistent with the patient's preferred geographic region, medical needs, and insurance network was created in [facility] Guide.? This list was provided to the SW. Samreen Godoy Discharge Planning Asst.
--- NOTE | 2023-02-09 16:46 | CHAPLAIN ---
Type of Pastoral Visit _x__ Initial Visit ___ Follow-up Visit ___ On-call Visit ___ General Patient Visit ___ Spiritual Assessment ___ Family Conference ___ Bereavement ___ Rapid Response ___ Code Blue ___ Other (describe below) Pastoral Care Referral From _x__ Patient ___ Family ___ Nurse ___ Physician ___ Compliance Associate ___ Police Patrol Officer ___ Other (describe below) Sacrament/Intervention _x__ Active listening ___ Anointing ___ Hindu ___ Bereavement ___ Communion _x__ Apple exploration ___ _x__ Life review _x__ Prayer ___ Reconciliation ___ Sacrament of Sick _x__ Supportive presence ___ Wedding ___ Other (describe below) Pastoral Comments patient describes his situation and adds that I'm going to be (a burden) to my ; talked about his feelings of getting more dependent; pt also refers to [place] and this is given time to hear about his past and his feelings concerning life, people, the government, and a negative attitude about much of it all; pt does indicate that prayer is probably the only way that there will be help; pt states that he used to go to anabaptist but not for a long time now as anabaptist had rules that were more than what was in the Bible; pt does desire to have prayer spoken for his healing and for his future
[2023-02-09] MEDS: 0.9% Saline Lock 10 ML Syringe IV ×2 (16:58→21:40)
[2023-02-09] MEDS: Ceftriaxone 2 GM in 0.9% Normal Saline (50mL MB+) 50 ML IV (21:39)
[2023-02-09] MEDS: Atorvastatin Calcium 20 MG Tablet PO (21:39)
[2023-02-10 02:07] VITALS: BP 112/63; PULSE 76; RESP 16; TEMP 36.6; O2SAT 97
[2023-02-10 07:16] LABS: Absolute Lymphocyte Count 1.82 X10^3/uL (0.83-4.51); Absolute Neutrophil Count 4.6 X10^3/uL (2.0-7.7); Basophil# 0.04 X10^3/uL; Basophil% 0.5 % (0-1); Eosinophil# 0.33 X10^3/uL; Eosinophils% 4.2 % (0-5); Hematocrit 38.3 % (40-54); Hemoglobin 12.5 g/dL (13.0-16.5); Lymphocyte # 1.82 X10^3/ul (0.83-4.51); Lymphocyte % 23.3 % (19-41); Mean Corp Hgb Conc 32.6 g/dL (32-36); Mean Corpuscular Volume 88.9 fL (80-94); Mean Platelet Vol. 10.1 fl (6.2-12.0); Monocyte# 1.01 X10^3/uL; Monocyte% 12.9 % (0-10); NRBC Flagged by Analyzer 0 % (0-5); Neutrophil # 4.58 X10^3/uL (2.7-7.7); Neutrophil % 58.7 % (47-70); Platelet Count 183 K/mm3 (150-450); RBC Distribution Width CV 13.4 % (11.6-14.6); RBC Distribution Width SD 43.6 fl (35.1-43.9); Red Blood Count 4.31 M/mm3 (4.6-6.2); White Blood Count 7.8 K/mm3 (4.4-11.0)
[2023-02-10 07:55] LABS: Anion Gap 3 (5-15); BUN 14 mg/dL (7-18); BUN/Creat Ratio 16.9 RATIO (10-20); Calcium,Total 8.8 mg/dL (8.5-10.1); Chloride 101 mmol/L (98-107); Creatinine, Serum 0.83 mg/dL (0.70-1.30); EST Glomerular Filtration Rate 96 mL/min (>60); Est Glom Filt Rate - Afr Amer 117 mL/min (>60); Estimated Creatinine Clearance 79.27 ml/min; Glucose 119 mg/dL (74-106); Potassium 3.5 mmol/L (3.5-5.1); Sodium Level 136 mmol/L (136-145)
[2023-02-10 08:00] VITALS: BP 107/65; PULSE 70; RESP 16; TEMP 36.7; O2SAT 95
[2023-02-10 08:20] VITALS: O2SAT 94
[2023-02-10] MEDS: Carvedilol 6.25 MG Tablet PO ×2 (08:44→16:04)
[2023-02-10] MEDS: Aspirin 81 MG TAB.CHEW PO (08:44)
[2023-02-10] MEDS: Tamsulosin HCl 0.4 MG Capsule PO ×2 (08:44→21:27)
[2023-02-10] MEDS: Multivitamins,Ther W-Minerals Tablet 1 TABLET PO ×2 (08:44→16:04)
[2023-02-10] MEDS: Cholecalciferol (VIT D3) 25 MCG TABLET (1,000 UNITS) 75 MCG PO (08:45)
[2023-02-10] MEDS: hydroCHLOROthiazide 12.5mg 12.5 MG PO (08:45)
[2023-02-10] MEDS: busPIRone 5 MG Tablet PO ×2 (08:45→21:27)
[2023-02-10] MEDS: buPROPion (XL) 150 MG TABLET.XL PO (08:47)
--- NOTE | 2023-02-10 10:35 | PN.HOSP_ITS ---
Reason for Visit Reason for Visit: Diagnoses Morbid (severe) obesity due to excess calories (02/09/23) Pneumonia, unspecified organism (02/09/23) Gross hematuria (02/09/23) Weakness (02/09/23) Subjective Subjective Patient is a 72-year-old gentleman with multiple comorbidities admitted following a fall with generalized weakness. Chest x-ray obtained on admission demonstrated a right lower lobe infiltrate consistent with pneumonia admitted to regular nursing floor for further management Objective Data Objective Data Vital Signs: Vital Signs Temp Pulse Resp BP Pulse Ox O2 Del Method 98.1 F 70 16 107/65 95 CPAP 02/10/23 08:00 02/10/23 08:00 02/10/23 08:00 02/10/23 08:00 02/10/23 08:00 02/10/23 08:00 Oxygen Delivery Method CPAP Weight: 127.641 kg Body Mass Index (BMI) 41.5 Intake & Output: Intake and Output for Last 24 Hours 02/08/23 02/09/23 02/10/23 23:59 23:59 23:59 Intake Total 835 / 835 Output Total 1750 / 1950 750 / 750 Balance -915 / -1115 -750 / -750 Lab / Micro Data 02/10/23 06:54 02/10/23 06:54 Labs: Laboratory Results - last 24 hr 02/10/23 06:54: WBC 7.8, RBC 4.31 L, Hgb 12.5 L, Hct 38.3 L, MCV 88.9, MCH 29.0, MCHC 32.6, RDW Std Deviation 43.6, RDW Coeff of Letty 13.4, Plt Count 183, MPV 10.1, Immature Gran % (Auto) 0.400, Neut % (Auto) 58.7, Lymph % (Auto) 23.3, [place] % (Auto) 12.9 H, Eos % (Auto) 4.2, Baso % (Auto) 0.5, Absolute Neuts (auto) 4.6, Absolute Lymphs (auto) 1.82, Nucleated RBC % 0, Sodium 136, Potassium 3.5, Chloride 101, Carbon Dioxide 32.0, Anion Gap 3 L, BUN 14, Creatinine 0.83, Estim Creat Clear Calc 79.27, Est GFR (MDRD) Af Amer 117, Est GFR (MDRD) Non-Af 96, BUN/Creatinine Ratio 16.9, Glucose 119 H, Calcium 8.8 Micro: Microbiology 02/09/23 01:46 Urine, Clean Catch Legionella Antigen - Final 02/09/23 01:46 Urine, Clean Catch Streptococcus pneumoniae Antigen (M - Final Physical Exam Narrative GENERAL: cooperative HEENT: Atraumatic; normocephalic EYES; Anicteric, Normal Conjunctiva NECK; supple, normal thyroid, RESPIRATORY: Diminished to auscultation CARDIOVASCULAR: Regular S1 S2, GI: soft, normoactive bowel sounds, : No Renal angle tenderness; EXTREMITIES: No edema, no clubbing, MUSCULOSKELETAL: Palpable right axilla mass NEURO: Awake; no lateralizing signs. SKIN: No Rash PSYCH; Flat affect Assessment & Plan Assessment/Plan (1) Morbid obesity: (2) Hematuria, gross: (3) Generalized weakness: (4) Right lower lobe pneumonia: QUALIFIERS: Pneumonia type: due to unspecified organism Qualified Code(s): J18.9 - Pneumonia, unspecified organism PLAN: Plan Patient is a 72-year-old gentleman with multiple comorbidities admitted following a fall with generalized weakness. [facility] consistent with pneumonia admitted to regular nursing floor for further management 1. Pneumonia - Suspected to be secondary to streptococcal pneumonia, Blood and sputum cultures sent. Patient placed on Rocephin and Zithromax and placed on oxygen titrated to keep Pulse Ox greater than 90 2. Hypertension - Blood pressure controlled, home medications continued with dose adjustment as needed 3. Dyslipidemia -Patient is on statin therapy, continued at home dose 4. Class III obesity with BMI of 41.6 ? Complicating care weight loss advised 5. Gross hematuria ?? Traumatic. Resolved 6. BPH ? Patient is on tamsulosin 7. DVT prophylaxis ? SCDs only given patient's hematuria 8. Physical deconditioning - Requested for PT OT eval and social media analyst to assist with discharge planning 9. Right axilla mass Time spent in the patient's overall evaluation,decision-making process, review of diagnostic data, adjustment of management, discussion with other providers, nursing and ancillary staff involved in patient's care documentation, 50 m inutes.
--- NOTE | 2023-02-10 10:48 | US_ITS ---
STUDY: ULTRASOUND BREAST - RIGHT REASON FOR EXAM: Male, 72 years old. Right axillary lump. TECHNIQUE: Axial and longitudinal images of the RIGHT breast were performed with a high resolution ultrasound transducer. # OF IMAGES: 32 COMPARISON: None. FINDINGS: RIGHT Breast: The palpable abnormality corresponds to a 5.2 cm x 4.3 cm x 3.5 cm heterogeneous solid nodule. Biopsy is recommended. US/Breast Limited Unilateral IMPRESSION: The palpable abnormality corresponds to a 5.2 Evert by 4.3 cm x 3.5 cm heterogeneous solid nodule. Biopsy recommended. ASSESSMENT CATEGORY: BIRADS Category 4: Suspicious - Biopsy Should Be Considered. A letter regarding these results will be sent to the patient by the facility within 30 days. Electronically Signed: Rich Velez MD at 14:45 EDT ,
--- NOTE | 2023-02-10 13:15 | CASEMGMT ---
Discharge Planning A list of HH providers including quality and resource use data and consistent with the patient's preferred geographic region, medical needs, and insurance network was created in [employer] Guide.? This list was provided to the RN LISBETH. Samreen Godoy, Discharge Planning Asst.
[2023-02-10 14:00] VITALS: BP 106/69; PULSE 80; RESP 18; TEMP 36.9; O2SAT 95
--- NOTE | 2023-02-10 16:10 | CASEMGMT ---
FAMILIA BOB in to pt. room to discuss HHC list. Pt. infomed that therapy is recommending HHC. Pt. states he does not prefer to go to a SNF but feels like he may still need to because it is becoming to much for his to assist him at home. Pt. asks FAMILIA BOB to call his to speak with her about HHC vs. SNF. FAMILIA BOB will follow-up on this phone call tomorrow. Pt. denies having any additional concerns/needs at this time.
[2023-02-10] MEDS: 0.9% Saline Lock 10 ML Syringe IV (21:21)
[2023-02-10] MEDS: Ceftriaxone 2 GM in 0.9% Normal Saline (50mL MB+) 50 ML IV (21:25)
[2023-02-10] MEDS: Atorvastatin Calcium 20 MG Tablet PO (21:28)
[2023-02-10] MEDS: MELATONIN 3 MG TABLET PO (21:34)
[2023-02-10] MEDS: Acetaminophen 325 MG Tablet 650 MG PO (21:34)
[2023-02-10 21:43] VITALS: BP 101/69; PULSE 73; RESP 18; TEMP 37.2; O2SAT 95
[2023-02-10] MEDS: Azithromycin 500 MG in Dextrose 5%-Water (250mL Bag) 250 ML 250 MG IV (22:31)
[2023-02-11 04:52] VITALS: BP 117/77; PULSE 64; RESP 16; TEMP 36.7; O2SAT 96
[2023-02-11 06:46] LABS: Absolute Lymphocyte Count 1.89 X10^3/uL (0.83-4.51); Absolute Neutrophil Count 3.7 X10^3/uL (2.0-7.7); Basophil# 0.04 X10^3/uL; Basophil% 0.6 % (0-1); Eosinophil# 0.38 X10^3/uL; Eosinophils% 5.5 % (0-5); Hematocrit 36.6 % (40-54); Hemoglobin 11.9 g/dL (13.0-16.5); Lymphocyte # 1.89 X10^3/ul (0.83-4.51); Lymphocyte % 27.6 % (19-41); Mean Corp Hgb Conc 32.5 g/dL (32-36); Mean Corpuscular Hgb 28.5 pg (27.0-32.0); Mean Corpuscular Volume 87.6 fL (80-94); Monocyte# 0.82 X10^3/uL; NRBC Flagged by Analyzer 0 % (0-5); Neutrophil # 3.69 X10^3/uL (2.7-7.7); Neutrophil % 53.9 % (47-70); Platelet Count 196 K/mm3 (150-450); RBC Distribution Width CV 13.3 % (11.6-14.6); RBC Distribution Width SD 43.2 fl (35.1-43.9); Red Blood Count 4.18 M/mm3 (4.6-6.2); White Blood Count 6.9 K/mm3 (4.4-11.0)
[2023-02-11 07:12] LABS: Anion Gap 3 (5-15); BUN 14 mg/dL (7-18); BUN/Creat Ratio 17.8 RATIO (10-20); Calcium,Total 8.8 mg/dL (8.5-10.1); Chloride 101 mmol/L (98-107); Creatinine, Serum 0.79 mg/dL (0.70-1.30); EST Glomerular Filtration Rate 102 mL/min (>60); Est Glom Filt Rate - Afr Amer 124 mL/min (>60); Estimated Creatinine Clearance 65.79 ml/min; Glucose 105 mg/dL (74-106); Phosphorus 4.9 mg/dL (2.5-4.9); Potassium 3.3 mmol/L (3.5-5.1); Sodium Level 136 mmol/L (136-145)
--- NOTE | 2023-02-11 08:24 | PCM.PN.HOSP ---
Reason for Visit Reason for Visit: Diagnoses Morbid (severe) obesity due to excess calories (02/09/23) Pneumonia, unspecified organism (02/09/23) Gross hematuria (02/09/23) Weakness (02/09/23) Objective Data Objective Data Vital Signs: Vital Signs Temp Pulse Resp BP Pulse Ox O2 Del Method 98.0 F 64 16 117/77 96 CPAP 02/11/23 04:52 02/11/23 04:52 02/11/23 04:52 02/11/23 04:52 02/11/23 04:52 02/11/23 04:52 Oxygen Delivery Method CPAP Weight: 127.641 kg Body Mass Index (BMI) 41.5 Intake & Output: Intake and Output for Last 24 Hours 02/09/23 02/10/23 02/11/23 23:59 23:59 23:59 Intake Total 835 / 835 305 / 305 Output Total 1750 / 1950 1950 / 1950 1000 / 1000 Balance -915 / -1115 -1645 / -1645 -1000 / -1000 Lab / Micro Data 02/11/23 06:31 02/11/23 06:31 Labs: Laboratory Results - last 24 hr 02/11/23 06:31: WBC 6.9, RBC 4.18 L, Hgb 11.9 L, Hct 36.6 L, MCV 87.6, MCH 28.5, MCHC 32.5, RDW Std Deviation 43.2, RDW Coeff of Letty 13.3, Plt Count 196, MPV 10.0, Immature Gran % (Auto) 0.400, Neut % (Auto) 53.9, Lymph % (Auto) 27.6, [place] % (Auto) 12.0 H, Eos % (Auto) 5.5 H, Baso % (Auto) 0.6, Absolute Neuts (auto) 3.7, Absolute Lymphs (auto) 1.89, Nucleated RBC % 0, Sodium 136, Potassium 3.3 L, Chloride 101, Carbon Dioxide 32.0, Anion Gap 3 L, BUN 14, Creatinine 0.79, Estim Creat Clear Calc 65.79, Est GFR (MDRD) Af Amer 124, Est GFR (MDRD) Non-Af 102, BUN/Creatinine Ratio 17.8, Glucose 105, Calcium 8.8, Phosphorus 4.9, Magnesium 2.0 Micro: Microbiology 02/09/23 01:46 Urine, Clean Catch Legionella Antigen - Final 02/09/23 01:46 Urine, Clean Catch Streptococcus pneumoniae Antigen (M - Final Radiography Diagnostic Testing: Radiology Impression Breast Ultrasound 02/10/23 10:48 IMPRESSION: The palpable abnormality corresponds to a 5.2 Evert by 4.3 cm x 3.5 cm heterogeneous solid nodule. Biopsy recommended. ASSESSMENT CATEGORY: BIRADS Category 4: Suspicious - Biopsy Should Be Considered. A letter regarding these results will be sent to the patient by the facility within 30 days. Electronically Signed: Rich Velez MD at 14:45 EDT , Physical Exam Narrative GENERAL: cooperative HEENT: Atraumatic; normocephalic EYES; Anicteric, Normal Conjunctiva NECK; supple, normal thyroid, RESPIRATORY: Diminished to auscultation CARDIOVASCULAR: Regular S1 S2, GI: soft, normoactive bowel sounds, : No Renal angle tenderness; EXTREMITIES: No edema, no clubbing, MUSCULOSKELETAL: Palpable right axilla mass NEURO: Awake; no lateralizing signs. SKIN: No Rash PSYCH; Flat affect Assessment & Plan Assessment/Plan (1) Morbid obesity: (2) Hematuria, gross: (3) Generalized weakness: (4) Right lower lobe pneumonia: QUALIFIERS: Pneumonia type: due to unspecified organism Qualified Code(s): J18.9 - Pneumonia, unspecified organism PLAN: Plan Patient is a 72-year-old gentleman with multiple comorbidities admitted following a fall with generalized weakness. Chest x-ray obtained on admission demonstrated a right lower lobe infiltrate consistent with pneumonia admitted to regular nursing floor for further management 1. Pneumonia - Suspected to be secondary to streptococcal pneumonia, Blood and sputum cultures sent. Patient placed on Rocephin and Zithromax and placed on oxygen titrated to keep Pulse Ox greater than 90 2. Hypertension - Blood pressure controlled, home medications continued with dose adjustment as needed 3. Dyslipidemia -Patient is on statin therapy, continued at home dose 4. Class III obesity with BMI of 41.6 ? Complicating care weight loss advised 5. Gross hematuria ?? Traumatic. Resolved 6. BPH ? Patient is on tamsulosin 7. DVT prophylaxis ? SCDs only given patient's hematuria 8. Physical deconditioning - Requested for PT OT eval and social welfare clerk to assist with discharge planning 9. Right axilla mass -Ultrasound obtained demonstrated palpable abnormality corresponds to a 5.2 Evert by 4.3 cm x 3.5 cm heterogeneous solid nodule. Biopsy recommended. Consult subsequently placed to general surgery Time spent in the patient's overall evaluation,decision-making process, review of diagnostic data, adjustment of management, discussion with other providers, nursing and ancillary staff involved in patient's care documentation, 50 minutes. Charges/Coding Visit Charges Inpatient E&M: 78592 [facility] Hosp L3
[2023-02-11 08:28] VITALS: BP 107/60; PULSE 69; RESP 18; TEMP 36.4; O2SAT 94
[2023-02-11] MEDS: Tamsulosin HCl 0.4 MG Capsule PO (08:31)
[2023-02-11] MEDS: hydroCHLOROthiazide 12.5mg 12.5 MG PO (08:31)
[2023-02-11] MEDS: Cholecalciferol (VIT D3) 25 MCG TABLET (1,000 UNITS) 75 MCG PO (08:31)
[2023-02-11] MEDS: buPROPion (XL) 150 MG TABLET.XL PO (08:31)
[2023-02-11] MEDS: busPIRone 5 MG Tablet PO (08:32)
[2023-02-11] MEDS: Multivitamins,Ther W-Minerals Tablet 1 TABLET PO (08:32)
[2023-02-11] MEDS: Carvedilol 6.25 MG Tablet PO (08:32)
[2023-02-11] MEDS: Aspirin 81 MG TAB.CHEW PO (08:32)
--- NOTE | 2023-02-11 09:21 | CASEMGMT ---
Addendum entered by Klarissa Ashton 02/11/23 09:35: FAMILIA BOB in to pt. room and provided a list of HHC providers including quality and resource use data and consistent with the patient?s preferred geographic region, medical needs, and insurance network were provided from the [employer] Guide. Pt. states that he would like to wait and review these choices with his once she is in to visit. Pt. denies having any additional questions/needs at this time. Original Note: FAMILIA BOB called pt.s , Alis, and spoke with her about pts concern that if he were to D/C home with HHC that it may still be too much for her to handle. FAMILIA BOB informed Alis that PT/OT recommended HHC instead of a SNF based on how pt. did in his evaluations. Alis states she feels comfortable with pt. discharging home with HHC services and feels it would be safe for pt. to D/C home. Alis states they may still [facility] just in case pt. would need that. Alis states pt. previously had HHC via [facility] and would like to have them again (FAMILIA BOB will also speak with pt about this and provide pt. with list of in-network HHC agencies). Alis states she plans to come in to visit pt. this morning. Pt. does not voice any additional concerns at this time. FAMILIA BOB called [facility] HHC intake department and provided information for referral for HHC services. They state they will call FAMILIA BOB back.
--- NOTE | 2023-02-11 09:46 | CASEMGMT ---
FAMILIA BOB received call from [facility] stating that they would be able to accept pt., and if he does not D/C till tomorrow, they could have a start date of Thursday.
--- NOTE | 2023-02-11 12:35 | CASEMGMT ---
FAMILIA BOB in to pt. room to discuss HHC options. Pt's is also present. Pt. and both state they [facility] to [facility]. FAMILIA BOB will update [facility] intake on this information once we have more information concerning discharge/general surgery.
[2023-02-11] MEDS: Potassium Chloride Oral Tablet 20 MEQ PO (12:59)
[2023-02-11] MEDS: Acetaminophen 325 MG Tablet 650 MG PO (13:04)
--- NOTE | 2023-02-11 14:18 | PCM.DC.SUM ---
Providers Date of Admission: 02/09/23 Date of Discharge: 02/11/23 Primary Care Physician: Dr. Marilin Gold MD Consultations 02/11/23 10:22 Consult: General Surgery Routine Consulting Provider: Kenn Lux Reason for Consult: Right axilla mass for possible biopsy EMERGENT Consult: No MD Notified: Yes Date Notified: 02/11/23 Time Notified: :22 Method of Notification: Text Reason For Visit: PNEUMONIA, DEBILITY Diagnosis Discharge Diagnosis (1) Morbid obesity: Status: Acute Code(s): E66.01 - Morbid (severe) obesity due to excess calories (2) Hematuria, gross: Status: Acute Code(s): R31.0 - Gross hematuria (3) Generalized weakness: Status: Acute Code(s): R53.1 - Weakness (4) Right lower lobe pneumonia: Status: Acute Code(s): J18.9 - Pneumonia, unspecified organism Qualifiers: Pneumonia type: due to unspecified organism Qualified Code(s): J18.9 - Pneumonia, unspecified organism Plan Patient is a 72-year-old gentleman with multiple comorbidities admitted following a fall with generalized weakness. Chest x-ray obtained on admission demonstrated a right lower lobe infiltrate consistent with pneumonia admitted to regular nursing floor for further management 1. Pneumonia - Suspected to be secondary to streptococcal pneumonia, Blood and sputum cultures sent. Patient placed on Rocephin and Zithromax and placed on oxygen titrated to keep Pulse Ox greater than 90 2. Hypertension - Blood pressure controlled, home medications continued with dose adjustment as needed 3. Dyslipidemia -Patient is on statin therapy, continued at home dose 4. Class III obesity with BMI of 41.6 ? Complicating care weight loss advised 5. Gross hematuria ?? Traumatic. Resolved 6. BPH ? Patient is on tamsulosin 7. DVT prophylaxis ? SCDs only given patient's hematuria 8. Physical deconditioning - Requested for PT OT eval and social media marketing analyst to assist with discharge planning 9. Right axilla mass -Ultrasound obtained demonstrated palpable abnormality corresponds to a 5.2 Evert by 4.3 cm x 3.5 cm heterogeneous solid nodule. Biopsy recommended. Consult subsequently placed to general surgery was seen by Dr. Kenn Lux plan is for him to follow-up with the patient as outpatient for biopsy Medications at Discharge Home Medications [id number] tablet (Multivitamin 50 Plus tablet) 1 ea PO BID supplement 04/09/16 aspirin 81 mg chewable tablet 81 mg PO DAILY@0800 heart 04/15/16 atorvastatin 80 mg tablet (Lipitor) 20 mg PO QHS cholesterol 02/17/17 cholecalciferol (vitamin D3) 25 mcg (1,000 unit) capsule (Vitamin D3) 3,000 unit PO DAILY Supplement 02/17/17 hydrochlorothiazide 12.5 mg capsule 12.5 mg PO DAILY Bp 08/08/17 bupropion HCl 150 mg 24 hr tablet, extended release 150 mg PO DAILY 08/09/17 buspirone 5 mg tablet 5 mg PO BID 08/27/21 tamsulosin 0.4 mg capsule 0.4 mg PO BID 08/27/21 atorvastatin 40 mg tablet 20 mg PO DAILY 02/08/23 carvedilol 6.25 mg tablet 6.25 mg PO BID 02/08/23 azithromycin 500 mg tablet (Zithromax) 500 mg PO DAILY 3 days #3 tabs 02/11/23 cefdinir 300 mg capsule 300 mg PO BID #10 caps 02/11/23 potassium chloride 20 mEq tablet,extended release(part/cryst) (Klor-Con M) 20 meq PO BIDCM #20 tabs 02/11/23 Hospital Course Summary of Care Provided Minutes Spent on Discharge: 35 Physical Exam Narrative GENERAL: cooperative HEENT: Atraumatic; normocephalic EYES; Anicteric, Normal Conjunctiva NECK; supple, normal thyroid, RESPIRATORY: Diminished to auscultation CARDIOVASCULAR: Regular S1 S2, GI: soft, normoactive bowel sounds, : No Renal angle tenderness; EXTREMITIES: No edema, no clubbing, MUSCULOSKELETAL: Palpable right axilla mass NEURO: Awake; no lateralizing signs. SKIN: No Rash PSYCH; Flat affect Weight / BMI Weight Weight: 127.641 kg Body Mass Index (BMI) 41.5 ABG / Lab / Microbiology Data 02/11/23 06:31 02/11/23 06:31 Laboratory: Laboratory Results - last 24 hr 02/11/23 06:31: WBC 6.9, RBC 4.18 L, Hgb 11.9 L, Hct 36.6 L, MCV 87.6, MCH 28.5, MCHC 32.5, RDW Std Deviation 43.2, RDW Coeff of Letty 13.3, Plt Count 196, MPV 10.0, Immature Gran % (Auto) 0.400, Neut % (Auto) 53.9, Lymph % (Auto) 27.6, [place] % (Auto) 12.0 H, Eos % (Auto) 5.5 H, Baso % (Auto) 0.6, Absolute Neuts (auto) 3.7, Absolute Lymphs (auto) 1.89, Nucleated RBC % 0, Sodium 136, Potassium 3.3 L, Chloride 101, Carbon Dioxide 32.0, Anion Gap 3 L, BUN 14, Creatinine 0.79, Estim Creat Clear Calc 65.79, Est GFR (MDRD) Af Amer 124, Est GFR (MDRD) Non-Af 102, BUN/Creatinine Ratio 17.8, Glucose 105, Calcium 8.8, Phosphorus 4.9, Magnesium 2.0 Microbiology: Microbiology 02/09/23 01:46 Urine, Clean Catch Urine Culture - Final Culture exhibits no growth. 02/09/23 01:46 Urine, Clean Catch Legionella Antigen - Final 02/09/23 01:46 Urine, Clean Catch Streptococcus pneumoniae Antigen (M - Final Radiography Diagnostic Testing: Radiology Impression Breast Ultrasound 02/10/23 10:48 IMPRESSION: The palpable abnormality corresponds to a 5.2 Evert by 4.3 cm x 3.5 cm heterogeneous solid nodule. Biopsy recommended. ASSESSMENT CATEGORY: BIRADS Category 4: Suspicious - Biopsy Should Be Considered. A letter regarding these results will be sent to the patient by the facility within 30 days. Electronically Signed: Rich Velez MD at 14:45 EDT , D/C Instructions Discharge Diet: No restrictions Discharge Activity: Return to Normal Activity Call your doctor if you observe: Fever of 101 or Higher, Shortness of breath, Fainting spells and Chest pain Meaningful Use Info Meaningful Use Diagnoses (Choose all that apply): None applicable Discharge Plan Admission Admit Date/Time: 02/09/23 00:24 Attending Provider: Torsten Morales Primary Care Provider: Marilin Gold Consulting Providers: Kendall Freedman; Constantine Weston; Kenn Lux Discharge Orders/Prescriptions Prescriptions: New potassium chloride [Klor-Con M20] 20 mEq Tablet,Er Particles/Crystals 20 meq PO BIDCM Qty: 20 0RF cefdinir 300 mg capsule 300 mg PO BID Qty: 10 0RF azithromycin [Zithromax] 500 mg tablet 500 mg PO DAILY 3 Days Qty: 3 0RF Continued Multivitamin 50 Plus 1 EACH tablet 1 ea PO BID Patient Comments: Supplement aspirin 81 MG tablet,chewable 81 mg PO DAILY@0800 Patient Comments: blood thinner cholecalciferol (vitamin D3) [Vitamin D3] 1,000 UNIT capsule 3,000 unit PO DAILY atorvastatin [Lipitor] 80 MG tablet 20 mg PO QHS hydrochlorothiazide 12.5 MG capsule 12.5 mg PO DAILY bupropion HCl 150 MG tablet extended release 24 hr 150 mg PO DAILY buspirone 5 mg Tablet 5 mg PO BID tamsulosin 0.4 mg Capsule 0.4 mg PO BID atorvastatin 40 mg tablet 20 mg PO DAILY carvedilol 6.25 mg tablet 6.25 mg PO BID Patient Comments: TAKE 1 TABLET BY MOUTH TWICE A DAY Referrals / Follow Up: Marilin Gold MD [Primary Care Provider] - Within 1 Week Kenn Lux MD [Med Staff - Active Staff] - (Please contact our office for an ultrasound guided right axillary biopsy with Dr. Lux in 7-10 days. Thank you) Disposition Disposition (needs filled in before D/C Order can be placed): Home, Self Care Charges/Coding Visit Charges Inpatient E&M: 83629 Disch Hosp >30min
--- NOTE | 2023-02-11 14:50 | CASEMGMT ---
Pt. has order for D/C. FAMILIA BOB in to room to discuss needs at D/C. Pt.'s is also present. FAMILIA BOB informed them that [facility] gave a start date of tomorrow. Pt denies having any additional needs or concerns at this time. FAMILIA BOB notified [facility] that pt. will D/C today. They state a start date of 02/12/2023.
--- NOTE | 2023-02-11 21:27 | CON.PCM.SX_ITS ---
Assessment & Plan Assessment/Plan (1) Mass of right axilla: PLAN: This is a 72-year-old male with a complex past medical history inclusive of CVA with recent falls who was admitted for management of pneumonia. According to hospitalist service patient has made progress with treatment for his pneumonia, but work-up was undertaken for evaluation of a right axillary mass noted on exam. Through patient's history, it is apparent that he had a fall approximately 1 month ago resulting in significant soft tissue trauma to the right axillary region with significant bruising and swelling. Both and Mrs. Dunne reports that the bruising has dissipated and that the overall feel of the area in question has softened. Yet, they do report a history of breast cancer in their daughter who has required bilateral mastectomy and is currently undergoing treatment. On exam patient does have a firm nodule approximately 5 cm in diameter that is nontender to palpation. I have shared with Mr. Dunne that I remain most suspicious for a possible posttraumatic soft tissue density, but with his history and radiology's interpretation of his sonogram, remain convinced that we do need a biopsy of the area. I have suggested that he follow-up with me in short order as an outpatient for this purpose and went so far as to describe the basics of a core needle biopsy. Both the patient and his spouse confirm understanding of this direction and they are in agreement. From a surgical perspective patient is cleared for discharge to home with referral to general surgery for biopsy. HPI Consult Data Date of Consult: 02/11/23 HPI Narrative Reason for Consultation: Right axillary knot HPI Narrative: HARRIS DUNNE, is a 72 M who presented to [facility] on 02/09/2023 due to complaints of progressive weakness, shortness of breath, and some associated hematuria. Was found to have a pneumonia and was admitted to the hospitalist service. During patient's evaluation it was apparent that he had a mass of his right armpit that warranted further investigation. This was undertaken with a dedicated ultrasound exam showing a 5.2 x 4.3 x 3.5 cm heterogeneous spherical lesion of the right axilla. Radiology recommended biopsy and surgery was consulted. Patient's accompanies him in the room and provides much of the history. She shares that her has been unsteady following a stroke and patient fell on January 14, 2023. Thereafter he had significant bruising and swelling of his right armpit. The bruising dissipated and Mr. Dunne reports that the swelling actually softened in the aftermath but a mass lesion remained. Given its persistence they decided to raise attention to this issue. They also confirm a history of breast cancer currently being treated and their daughter. They report that their daughter has required bilateral mastectomy for what they believe is tumors of both breasts. [facility] Medical History (Updated 02/11/23 @ 21:[address] Kenn Lux MD) Accidental fall Acute cervical myofascial strain Acute eczema Closed head injury without loss of consciousness CPAP (continuous positive airway pressure) dependence Elevated troponin Former smoker Generalized weakness HLD (hyperlipidemia) HTN (hypertension) Murmur, cardiac Sleep apnea Stroke Home Medications [id number] tablet (Multivitamin 50 Plus tablet) 1 ea PO BID supplement 04/09/16 [History Last Taken 08/07/17 09:00 1 tab] aspirin 81 mg chewable tablet 81 mg PO DAILY@0800 heart 04/15/16 [History Last Taken 08/07/17 09:00 81 mg] atorvastatin 80 mg tablet (Lipitor) 20 mg PO QHS cholesterol 02/17/17 [History Last Taken 08/06/17 21:00 80 mg] cholecalciferol (vitamin D3) 25 mcg (1,000 unit) capsule (Vitamin D3) 3,000 unit PO DAILY Supplement 02/17/17 [History Last Taken 08/07/17 09:00 3,000 units] hydrochlorothiazide 12.5 mg capsule 12.5 mg PO DAILY Bp 08/08/17 [History Last Taken 08/07/17 09:00 12.5mg] bupropion HCl 150 mg 24 hr tablet, extended release 150 mg PO DAILY 08/09/17 [History Last Taken Unknown] buspirone 5 mg tablet 5 mg PO BID 08/27/21 [History Last Taken Unknown] tamsulosin 0.4 mg capsule 0.4 mg PO BID 08/27/21 [History Last Taken Unknown] atorvastatin 40 mg tablet 20 mg PO DAILY 02/08/23 [History Last Taken Unknown] carvedilol 6.25 mg tablet 6.25 mg PO BID 02/08/23 [History Last Taken Unknown] azithromycin 500 mg tablet (Zithromax) 500 mg PO DAILY 3 days #3 tabs 02/11/23 [Rx Last Taken Unknown] cefdinir 300 mg capsule 300 mg PO BID #10 caps 02/11/23 [Rx Last Taken Unknown] potassium chloride 20 mEq tablet,extended release(part/cryst) (Klor-Con M) 20 meq PO BIDCM #20 tabs 02/11/23 [Rx Last Taken Unknown] Allergy/AdvReac Type Severity Reaction Status Date / Time lisinopril AdvReac Other Verified 02/08/23 20:52 losartan AdvReac Other Verified 02/08/23 20:52 Family History Other Diabetes Surgical History History of tonsillectomy Social History household members: spouse housing: house Smoking Status: Former smoker Physical Exam Const alert, oriented x3 and no apparent distress General Appearance: cooperative Chest Chest Narrative: Palpation was conducted of patient's right breast area and I did not find any mass lesions or any changes to his nipple. Extremity Extremity Narrative: Firm somewhat mobile mass approximately 5 cm in size that is nontender with palpation. Lab / Micro Data 02/11/23 06:31 02/11/23 06:31 Labs: Laboratory Results - last 24 hr 02/11/23 06:31: WBC 6.9, RBC 4.18 L, Hgb 11.9 L, Hct 36.6 L, MCV 87.6, MCH 28.5, MCHC 32.5, RDW Std Deviation 43.2, RDW Coeff of Letty 13.3, Plt Count 196, MPV 10 .0, Immature Gran % (Auto) 0.400, Neut % (Auto) 53.9, Lymph % (Auto) 27.6, [place] % (Auto) 12.0 H, Eos % (Auto) 5.5 H, Baso % (Auto) 0.6, Absolute Neuts (auto) 3.7, Absolute Lymphs (auto) 1.89, Nucleated RBC % 0, Sodium 136, Potassium 3.3 L , Chloride 101, Carbon Dioxide 32.0, Anion Gap 3 L, BUN 14, Creatinine 0.79, Estim Creat Clear Calc 65.79, Est GFR (MDRD) Af Amer 124, Est GFR (MDRD) Non-Af 102, BUN/Creatinine Ratio 17.8, Glucose 105, Calcium 8.8, Phosphorus 4.9, Magnesium 2.0 Micro: Microbiology 02/09/23 01:46 Urine, Clean Catch Urine Culture - Final Culture exhibits no growth. Charges/Coding Visit Charges Inpatient E&M: 47216 Init Hosp L2
== END 2023-02-11 16:42 | disposition home health service (06) | DRG 194 ==
LOC: ED 23:25 → MS3 02-09 00:47
PROVIDERS: Family Medicine; Admitting Provider Hospitalist; Emergency Provider Emergency Medicine; PCP Family Medicine; Visit Provider Internal Medicine
DX: J15.4 Pneumonia due to other streptococci (principal); Z68.41 Body mass index [BMI] 40.0-44.9, adult; E66.01 Morbid (severe) obesity due to excess calories; I10 Essential (primary) hypertension; E78.5 Hyperlipidemia, unspecified; N40.0 Benign prostatic hyperplasia without lower urinary tract symptoms; R31.0 Gross hematuria; R53.1 Weakness; R53.81 Other malaise; R22.31 Localized swelling, mass and lump, right upper limb; R29.6 Repeated falls; Z79.82 Long term (current) use of aspirin; Z79.899 Other long term (current) drug therapy; Z86.73 Personal history of transient ischemic attack (TIA), and cerebral infarction without residual deficits; Z87.891 Personal history of nicotine dependence; Z23 Encounter for immunization
CPT/HCPCS: 36415; 71045; 76642; 80048; 80053; 81001; 82550; 83605; 83735; 84100; 84484; 85025; 87086; 87449; 93005; 94640; 94668; 97162; 97166; 97530; 97535; 99285; 90662; A4216; J0696

== ENCOUNTER → 2023-03-11 | Outpatient (CLI) | payer MEDICARE, SELFPAY ==
--- NOTE | 2023-03-11 | IMM_PTH ---
PATIENT: HARRIS CLEMENS LOC: TIM U#:[id number] AGE/SX: 72/M ROOM: RE03/11/[address]: Dr. Kenn Lux MD : 1950 BED: DIS: 03/11/2023 SPEC #: [id number] RECD: 03/13/23 13:10 STATUS: JOSHUA REQ #: [id number] BRETT: 03/11/23 00:[address]: Kenn Lux DEPT: IMMUNOHISTOCHEMISTRY RECD BY: Briana Byrd ENTERED: 03/13/23 13:14 SP TYPE: IMMUNO OTHR DR: Dr. Marilin Gold MD Tissues: Axilla, NOS Procedures: BCL-2 (add) BCL-6 (add) CD15 (add) CD20 (add) CD3 (add) CD30 (add) CD45 (add) CD5 (add) CD79A (add) KI-67 (add) Pankeratin (initial) PHYSICIAN & [address] [address] SPECIMEN INFORMATION: Tissue Source: Right axillary mass Clinical Info: Right axillary mass Specimen Number: [id number] CPT code: 68293 x1, 72985 x10 METHODOLOGY: Deparaffinized sections of prefer/formalin-fixed tissue or PAP/DQ stained slides are incubated with monoclonal/polyclonal antibodies/oligonucleotide probes. Localization is made via biotin free immunoperoxidase method. Appropriate controls are performed and reacted as expected. Results on target cell population are indicated in the following table: RESULTS: ANTIBODY / CLONE RESULT AE1-3 (AE1/AE3/PCK26) negative CD3 (PS1) positive CD5 (SP10) positive CD20 (L26) positive CD45 (RP2/18) positive CD79a (11E3) positive CD15 (MMA) negative CD30 (Charlie-H2) negative BCL-2 (bcl-2/100/D5) positive BCL-6 (YD232H/A8) negative Ki-67 (30-9) positive, low These tests were developed and their performance characteristics determined by [facility]. They may not have been cleared or approved by the U.S. Food and Drug Administration. The FDA has determined that such clearance or approval is not necessary. The above immunohistochemical/dualISH markers are ordered and reviewed by the Pathologist. INTERPRETATION: Right axillary mass, core biopsy: Polytypic (benign) lymph node tissue. AM:anupam 03/16/2023
--- NOTE | 2023-03-11 10:00 | AXNB_PTH ---
PATIENT: HARRIS CLEMENS LOC: TIM U#:[id number] AGE/SX: 72/M ROOM: RE03/11/[address]: Dr. Kenn Lux MD : 1950 BED: DIS: 03/11/2023 SPEC #: [id number] RECD: 03/11/23 16:59 STATUS: JOSHUA CHELLY #: [id number] BRETT: 03/11/23 10:[address]: Kenn Lux DEPT: SURGICAL PATHOLOGY RECD BY: Marly Rogers ENTERED: 03/12/23 10:47 SP TYPE: AX NODE BX OTHR DR: Dr. Marilin Gold MD Tissues: Axillary lymph node, NOS Procedures: Special Stain Group I Surgery Specimen Level IV GMS Stain (control) HEADER OPERATION: Biopsy of right breast axillary mass PRE-OP DIAGNOSIS: Right axillary mass TISSUE SUBMITTED: Right axillary mass biopsy. MICROSCOPIC DIAGNOSIS Right axillary mass, biopsy: Benign lymphoid tissue. See comment. AM:anupam 03/13/2023 COMMENT Immunohistochemistry ([id number]) supports the above diagnosis. GMS stain with matched control was used in the evaluation of this case. MICROSCOPIC DESCRIPTION Slides are reviewed. GROSS DESCRIPTION Received in fixative is one container labeled with the patient's name and designated right axillary mass. The specimen consists of multiple irregular fragments of yellow tissue that in aggregate measure 1.5 x 0.2 x 0.1 cm. The specimen is totally submitted in one cassette. / AM:anupam 03/12/2023 TC:5 CPT: 81046, 18707
== END | disposition home or self-care (01) ==
PROVIDERS: PCP Family Medicine; Visit Provider Surgery
DX: R22.9 Localized swelling, mass and lump, unspecified (principal)
CPT/HCPCS: 88305; 88312; 88341; 88342

== ENCOUNTER 2023-07-04 08:41 | Emergency (ER) | payer OTHER, SELFPAY ==
[2023-07-04 08:43] VITALS: BP 124/68; PULSE 62; RESP 16; TEMP 36.4; O2SAT 96; BMI 41.3
[2023-07-04 09:18] LABS: Absolute Lymphocyte Count 1.77 X10^3/uL (0.83-4.51); Absolute Neutrophil Count 3.6 X10^3/uL (2.0-7.7); Basophil# 0.04 X10^3/uL; Basophil% 0.6 % (0-1); Eosinophil# 0.23 X10^3/uL; Eosinophils% 3.6 % (0-5); Hematocrit 39.3 % (40-54); Hemoglobin 13.1 g/dL (13.0-16.5); Lymphocyte # 1.77 X10^3/ul (0.83-4.51); Lymphocyte % 27.5 % (19-41); Mean Corp Hgb Conc 33.3 g/dL (32-36); Mean Corpuscular Hgb 28.4 pg (27.0-32.0); Mean Corpuscular Volume 85.2 fL (80-94); Mean Platelet Vol. 9.9 fl (6.2-12.0); Monocyte# 0.78 X10^3/uL; Monocyte% 12.1 % (0-10); NRBC Flagged by Analyzer 0 % (0-5); Neutrophil # 3.61 X10^3/uL (2.7-7.7); Platelet Count 204 K/mm3 (150-450); RBC Distribution Width CV 13.6 % (11.6-14.6); RBC Distribution Width SD 42.2 fl (35.1-43.9); Red Blood Count 4.61 M/mm3 (4.6-6.2); White Blood Count 6.4 K/mm3 (4.4-11.0)
[2023-07-04 09:23] LABS: Mucous, Urine 0 SEEN /hpf (<or=2+); Red Blood Cells-Urine 0 SEEN /hpf (0-5); Squamous Epithelial Cells - UA 0 SEEN /hpf (0-5); White Blood Cells 0 SEEN /hpf (0-5)
[2023-07-04 09:31] LABS: Anion Gap 7 (5-15); BUN 17 mg/dL (7-18); Calcium,Total 8.9 mg/dL (8.5-10.1); Chloride 103 mmol/L (98-107); Creatinine, Serum 0.85 mg/dL (0.70-1.30); EST Glomerular Filtration Rate 94 mL/min (>60); Est Glom Filt Rate - Afr Amer 113 mL/min (>60); Estimated Creatinine Clearance 103.65 ml/min; Glucose 107 mg/dL (74-106); Potassium 3.3 mmol/L (3.5-5.1); Sodium Level 139 mmol/L (136-145)
--- NOTE | 2023-07-04 09:42 | CT_ITS ---
HISTORY: right flank pain. TECHNIQUE: Helically acquired images were obtained of the abdomen and pelvis without oral or IV contrast. A radiation dose optimization technique was used for this scan. 554 images. COMPARISON: 07/22/2022. FINDINGS: LOWER CHEST: Very mild scarring in the lung bases. BOWEL: Bowel including appendix nondilated. Moderate stool and air in the colon. No focal pericolonic inflammatory change. PERITONEUM: No significant free fluid. LIVER/SPLEEN: Nonenlarged. GALLBLADDER/BILIARY TREE: Gallbladder present. PANCREAS: No peripancreatic inflammation. KIDNEYS AND URETERS: Renal vascular calcifications. No obstructing ureteral calculus. Malrotated right kidney. ADRENAL GLANDS: No nodules. VESSELS: Stable 3.2 cm aneurysmal dilatation of the infrarenal abdominal aorta. No acute retroperitoneal hematoma. PELVIC ORGANS: Unremarkable. BONES: Old left lower rib fractures. Degenerative change. CT/Abdomen/Pelvis without Cont IMPRESSION: No significant interval change. No acute abnormality identified. Electronically Signed: Lori Landa MD at 11:07 EDT ,
--- NOTE | 2023-07-04 09:44 | ED.VIS.BACK ---
HPI History of Present Illness Chief Complaint: Back Narrative Narrative: 73-year-old male presenting with right-sided lower back pain. Patient states this is nontraumatic but he notes that he sleeps in a lazy boy chair and when he got up to get out of the chair couple days ago he noticed the pain. His states he been doing 500 mg of Tylenol periodically for pain. She states she rubbed hot olive oil over his back as well. No loss of bladder or bowel control. No saddle anesthesia or paresthesia. Patient states he is eating and drinking normally. Is making normal urine and stool. [facility] Medical History Accidental fall Acute cervical myofascial strain Acute eczema Closed head injury without loss of consciousness CPAP (continuous positive airway pressure) dependence Elevated troponin Former smoker Generalized weakness HLD (hyperlipidemia) HTN (hypertension) Murmur, cardiac Sleep apnea Stroke Home Medications [id number]-qiloylod-scrxlw tablet (Multivitamin 50 Plus tablet) 1 ea PO BID supplement 04/09/16 [History Last Taken 08/07/17 09:00 1 tab] aspirin 81 mg chewable tablet 81 mg PO DAILY@0800 heart 04/15/16 [History Last Taken 08/07/17 09:00 81 mg] atorvastatin 80 mg tablet (Lipitor) 20 mg PO QHS cholesterol 02/17/17 [History Last Taken 08/06/17 21:00 80 mg] cholecalciferol (vitamin D3) 25 mcg (1,000 unit) capsule (Vitamin D3) 3,000 unit PO DAILY Supplement 02/17/17 [History Last Taken 08/07/17 09:00 3,000 units] hydrochlorothiazide 12.5 mg capsule 12.5 mg PO DAILY Bp 08/08/17 [History Last Taken 08/07/17 09:00 12.5mg] bupropion HCl 150 mg 24 hr tablet, extended release 150 mg PO DAILY 08/09/17 [History Last Taken Unknown] buspirone 5 mg tablet 5 mg PO BID 08/27/21 [History Last Taken Unknown] tamsulosin 0.4 mg capsule 0.4 mg PO BID 08/27/21 [History Last Taken Unknown] atorvastatin 40 mg tablet 20 mg PO DAILY 02/08/23 [History Last Taken Unknown] carvedilol 6.25 mg tablet 6.25 mg PO BID 02/08/23 [History Last Taken Unknown] azithromycin 500 mg tablet (Zithromax) 500 mg PO DAILY 3 days #3 tabs 02/11/23 [Rx Last Taken Unknown] cefdinir 300 mg capsule 300 mg PO BID #10 caps 02/11/23 [Rx Last Taken Unknown] potassium chloride 20 mEq tablet,extended release(part/cryst) (Klor-Con M) 20 meq PO BIDCM #20 tabs 02/11/23 [Rx Last Taken Unknown] lidocaine 5 % topical patch (Lidoderm) 1 patch topical DAILY #15 ea 07/04/23 [Rx Last Taken Unknown] Allergy/AdvReac Type Severity Reaction Status Date / Time lisinopril AdvReac Other Verified 03/11/23 09:47 losartan AdvReac Other Verified 03/11/23 09:47 Family History Father Diabetes Hypertension Heart disease Daughter Breast cancer Surgical History History of tonsillectomy Social History household members: spouse housing: house Smoking Status: Former smoker EXAM Physical Exam Const Vital Signs: 07/04/23 08:43 07/04/23 11:46 07/04/23 12:49 Temperature 97.6 F L 97.1 F L Temperature Source Temporal Pulse Rate 62 68 78 Respiratory Rate 16 16 14 Blood Pressure 124/68 H 118/68 134/76 H Blood Pressure Mean 86 84 95 Pulse Ox 96 96 96 Oxygen Delivery Method Room Air Room Air Positive well nourished General Appearance ED: NAD HEENT Reports moist mucous membranes Eyes PERRL and EOMs intact bilaterally Neck no lymphadenopathy Resp normal respiratory effort Cardio regular rate and regular rhythm GI normal to inspection, nondistended, normoactive bowel sounds Back/Spine Back/Spine Narrative: Tenderness palpation right lumbar paraspinal musculature. No midline spinal tenderness, deformity, step-off. No rash, ecchymosis. Extremity normal to inspection Neuro oriented x3 Sensorium / Orientation: alert Psych mental status grossly normal Skin no rashes or lesions noted MDM MDM MDM Narrative Medical decision making narrative: Patient presenting with lower back pain on the right. Differential includes kidney stone, UTI, pyelonephritis, lumbar strain, compression fracture. CBC will be obtained to assess white blood cell count, hemoglobin, platelets. BMP to assess renal function, electrolytes, glucose. Urinalysis to assess for UTI or occult blood. Patient medicated with Toradol and IV fluids. Pneumonia CBC shows normal white blood cell count 6.4. Hemoglobin 13.1. Platelets are normal at 204. Renal function electrolytes at baseline with exception of potassium 3.3. CT of the abdomen pelvis is obtained and shows no acute process and specifically nothing wrong with the spine. Patient was able to ambulate after being medicated with Toradol and family and he both feel comfortable with him going home using his walker. Return precautions were discussed. Impression: 1. Back pain Lab Data Labs: Laboratory Results - last 24 hr 07/04/23 07/04/23 09:10 09:15 WBC 6.4 RBC 4.61 Hgb 13.1 Hct 39.3 L MCV 85.2 MCH 28.4 MCHC 33.3 RDW Std Deviation 42.2 RDW Coeff of Letty 13.6 Plt Count 204 MPV 9.9 Immature Gran % (Auto) 0.200 Neut % (Auto) 56.0 Lymph % (Auto) 27.5 [place] % (Auto) 12.1 H Eos % (Auto) 3.6 Baso % (Auto) 0.6 Absolute Neuts (auto) 3.6 Absolute Lymphs (auto) 1.77 Nucleated RBC % 0 Sodium 139 Potassium 3.3 L Chloride 103 Carbon Dioxide 29.0 Anion Gap 7 BUN 17 Creatinine 0.85 Estim Creat Clear Calc 103.65 Est GFR (MDRD) Af Amer 113 Est GFR (MDRD) Non-Af 94 BUN/Creatinine Ratio 20.0 Glucose 107 H Calcium 8.9 Urine Color Yellow Urine Clarity Clear Urine pH 6.0 Ur Specific [place] 1.015 Urine Protein Negative Urine Glucose (UA) Normal Urine Ketones Negative Urine Occult Blood 10 H Urine Nitrite Negative Urine Bilirubin Negative Urine Urobilinogen Normal Ur Leukocyte Esterase 25 H Urine RBC 0 SEEN Urine WBC 0 SEEN Ur Squamous Epith Cells 0 SEEN Urine Bacteria 2+ Urine Mucus 0 SEEN Radiography Diagnostic Testing: Clinical Impression(s) from Imaging Studies Abdomen/Pelvis CT 07/04/23 09:42 IMPRESSION: No significant interval change. No acute abnormality identified. Electronically Signed: Lori Landa MD at 11:07 EDT , Discharge Plan Triage Chief Complaint: Back ED Provider: Oliver Forbes Dx/Rx/DC Orders Instructions: ED Back Spasm, No Trauma Prescriptions: New lidocaine [Lidoderm] 5 % adhesive patch,medicated 1 patch topical DAILY Qty: 15 0RF Rx Instructions: leave on most painful area for up to 12 hrs No Action Multivitamin 50 Plus 1 EACH tablet 1 ea PO BID Patient Comments: Supplement aspirin 81 MG tablet,chewable 81 mg PO DAILY@0800 Patient Comments: blood thinner cholecalciferol (vitamin D3) [Vitamin D3] 1,000 UNIT capsule 3,000 unit PO DAILY atorvastatin [Lipitor] 80 MG tablet 20 mg PO QHS hydrochlorothiazide 12.5 MG capsule 12.5 mg PO DAILY bupropion HCl 150 MG tablet extended release 24 hr 150 mg PO DAILY buspirone 5 mg Tablet 5 mg PO BID tamsulosin 0.4 mg Capsule 0.4 mg PO BID atorvastatin 40 mg tablet 20 mg PO DAILY carvedilol 6.25 mg tablet 6.25 mg PO BID Patient Comments: TAKE 1 TABLET BY MOUTH TWICE A DAY potassium chloride [Klor-Con M20] 20 mEq Tablet,Er Particles/Crystals 20 meq PO BIDCM Qty: 20 0RF cefdinir 300 mg capsule 300 mg PO BID Qty: 10 0RF azithromycin [Zithromax] 500 mg tablet 500 mg PO DAILY 3 Days Qty: 3 0RF Primary Care Provider: Marilin Gold Referrals: Marilin Gold MD [Primary Care Provider] - Disposition Disposition: Home, Self Care Discharge Date/Time: 07/04/23 13:11
[2023-07-04] MEDS: 0.9% Normal Saline (1000mL) 1,000 ML 999 ML IV (09:49)
[2023-07-04] MEDS: Ketorolac 15 MG/ML Vial IV (09:49)
[2023-07-04 10:11] LABS: Color, Urine Yellow (Yellow); Glucose, Dipstick Normal (Normal); Ketone-Dipstick Negative (Negative); Leukocyte Esterase-Dipstick 25 /ul (Negative); Nitrite-Dipstick Negative (Negative); Occult Blood-Urine 10 /ul (Negative); Protein-Dipstick Negative (Negative); Specific Gravity, Urine 1.015 (1.002-1.030); Urine Bilirubin Dipstick Negative (Negative); Urine Clarity Clear (Clear); Urine Urobilinogen Normal (Normal)
[2023-07-04 10:19] LABS: Bacteria 2+ /hpf (None Seen)
[2023-07-04 11:46] VITALS: BP 118/68; PULSE 68; RESP 16; O2SAT 96
[2023-07-04 12:49] VITALS: BP 134/76; PULSE 78; RESP 14; TEMP 36.2; O2SAT 96
[2023-07-04] MEDS: Lidocaine 5% Patch 1 PATCH TOPICAL (13:03)
== END 2023-07-04 13:11 | disposition home or self-care (01) ==
PROVIDERS: Emergency Provider Student in an Organized Health Care Education/Training Program; PCP Family Medicine; Visit Provider Student in an Organized Health Care Education/Training Program
DX: M54.50 Low back pain, unspecified (principal); G47.30 Sleep apnea, unspecified; Z87.891 Personal history of nicotine dependence
CPT/HCPCS: 74176; 80048; 81001; 85025; 96361; 96374; 99284; J7030; A4216

== ENCOUNTER 2023-07-09 23:49 | Inpatient (IN) | payer OTHER, SELFPAY ==
[2023-07-09 23:50] VITALS: PULSE 98; RESP 25; TEMP 37.6; O2SAT 94
[2023-07-09 23:53] VITALS: BP 136/75; PULSE 94; RESP 19; O2SAT 97
[2023-07-10] VITALS (12 sets, daily range): BP systolic 103–164; BP diastolic 55–93; PULSE 71–96; RESP 16–22; TEMP 36.3–37.6; O2SAT 93–99; BMI 40.0
--- NOTE | 2023-07-10 00:02 | RAD_ITS ---
EXAM: XR Chest 1 View INDICATION: Male, 73 years old. Cough TECHNIQUE: Single AP view COMPARISON: 02/08/2023 FINDINGS: DEVICES: None LUNGS: No confluent air space opacity. Mild prominence of interstitial lung markings noted throughout bilateral lung bases. No concerning pulmonary nodule. No pleural effusion or pneumothorax. MEDIASTINUM: Borderline cardiomegaly. Mediastinal silhouette is within normal limits.. No central pulmonary vascular congestion. Calcification of the aortic arch. . SKELETAL STRUCTURES: No acute skeletal abnormality. Mild multilevel degenerative changes in the spine. UPPER ABDOMEN: Unremarkable RAD/Chest 1 View (Portable) IMPRESSION: Chronic interstitial parenchymal change. Electronically Signed: Haris Martinez MD at 1:18 EDT ,
--- NOTE | 2023-07-10 00:02 | EKG12_ITS ---
Test Reason : WEAKNESS Blood Pressure : / mmHG Vent. Rate : 092 BPM Atrial Rate : 092 BPM P-R Int : 214 ms QRS Dur : 120 ms QT Int : 358 ms P-R-T Axes : 070 -48 091 degrees QTc Int : 442 ms Sinus rhythm with 1st degree A-V block Left anterior fascicular block Minimal voltage criteria for LVH, may be normal variant ( Tobi product ) Nonspecific ST and T wave abnormality Abnormal ECG Confirmed by FLYNN CHRISTIANSEN, ELISA ([id number]), newspaper photo editor ESTRELLA VELIZ ([id number]) on 07/13/2023 11:04:20 AM Referred By: SARA Confirmed By:ELISA PRUETT MD
--- NOTE | 2023-07-10 00:03 | EDS_ITS ---
HPI History of Present Illness Chief Complaint: Weakness Detail of Chief Complaint: Feels feverish and weak Informant: patient Narrative Narrative: Patient presents secondary to weakness and fall. Patient reportedly has had increased weakness last couple days and tonight folic his right leg did not want to work as well as normal. He lowered himself to the ground. He reports having chills and feels feverish. He denies cough, nausea, or vomiting. He states he urinates frequently but has no dysuria. [facility] Medical History Accidental fall Acute cervical myofascial strain Acute eczema Closed head injury without loss of consciousness CPAP (continuous positive airway pressure) dependence Elevated troponin Former smoker Generalized weakness HLD (hyperlipidemia) HTN (hypertension) Murmur, cardiac Sleep apnea Stroke Home Medications [id number] tablet (Multivitamin 50 Plus tablet) 1 ea PO BID supplement 04/09/16 [History Last Taken 08/07/17 09:00 1 tab] aspirin 81 mg chewable tablet 81 mg PO DAILY@0800 heart 04/15/16 [History Last Taken 08/07/17 09:00 81 mg] atorvastatin 80 mg tablet (Lipitor) 20 mg PO QHS cholesterol 02/17/17 [History Last Taken 08/06/17 21:00 80 mg] cholecalciferol (vitamin D3) 25 mcg (1,000 unit) capsule (Vitamin D3) 3,000 unit PO DAILY Supplement 02/17/17 [History Last Taken 08/07/17 09:00 3,000 units] hydrochlorothiazide 12.5 mg capsule 12.5 mg PO DAILY Bp 08/08/17 [History Last Taken 08/07/17 09:00 12.5mg] bupropion HCl 150 mg 24 hr tablet, extended release 150 mg PO DAILY 08/09/17 [History Last Taken Unknown] buspirone 5 mg tablet 5 mg PO BID 08/27/21 [History Last Taken Unknown] tamsulosin 0.4 mg capsule 0.4 mg PO BID 08/27/21 [History Last Taken Unknown] atorvastatin 40 mg tablet 20 mg PO DAILY 02/08/23 [History Last Taken Unknown] carvedilol 6.25 mg tablet 6.25 mg PO BID 02/08/23 [History Last Taken Unknown] lidocaine 5 % topical patch (Lidoderm) 1 patch topical DAILY #15 ea 07/04/23 [Rx Last Taken Unknown] cyclobenzaprine 10 mg tablet 10 mg PO TID PRN PRN muscle spasm 07/10/23 [History Last Taken Unknown] Allergy/AdvReac Type Severity Reaction Status Date / Time lisinopril AdvReac Other Verified 03/11/23 09:47 losartan AdvReac Other Verified 03/11/23 09:47 Family History Father Diabetes Hypertension Heart disease Daughter Breast cancer Surgical History History of tonsillectomy Social History household members: spouse housing: house Smoking Status: Former smoker ROS ROS ED Constitutional Constitutional ED: Reports chills, fever(s) and subjective Eyes Eyes: Denies change in vision or discharge from eye(s) ENT ENT ED: Denies discharge from eye(s), rhinorrhea or sore throat Cardiovascular Cardiovascular: Denies chest pain or palpitations Respiratory/Chest Respiratory/Chest: Denies cough or dyspnea Gastrointestinal Gastrointestinal: Denies abdominal pain, nausea or vomiting Genitourinary Genitourinary ED: Reports urinary frequency; Denies dysuria Musculoskeletal Musculoskeletal: Reports myalgias; Denies back pain or extremity pain Integumentary Denies Abrasions or rash Neurologic Neurologic: Reports weakness; Denies headache(s) Psychiatric Psychiatric: Denies anxiety or depression Allergic/Immunologic Allergic/Immunologic ED: Denies lip swelling or urticaria EXAM Physical Exam Const Vital Signs: 07/09/23 23:50 07/10/23 00:20 07/10/23 00:20 Temperature 99.7 F H Temperature Source Temporal Pulse Rate 98 Respiratory Rate 25 H Respiratory Effort Normal Respiratory Pattern Normal Blood Pressure Blood Pressure Mean Pulse Ox 94 Oxygen Delivery Method Room Air Room Air 07/10/23 00:53 07/10/23 01:00 07/09/23 23:53 Temperature 99.6 F H 99.6 F H Temperature Source Oral Oral Pulse Rate 94 91 94 Respiratory Rate 17 18 19 H Respiratory Effort Respiratory Pattern Blood Pressure 143/93 H 136/75 H 136/75 H Blood Pressure Mean 109 95 95 Pulse Ox 96 94 97 Oxygen Delivery Method Room Air Room Air Room Air 07/10/23 01:50 07/10/23 02:00 Temperature 99.4 F H Temperature Source Temporal Pulse Rate 92 90 Respiratory Rate 19 H 16 Respiratory Effort Respiratory Pattern Blood Pressure 122/78 H 122/78 H Blood Pressure Mean 92 92 Pulse Ox 96 96 Oxygen Delivery Method Room Air Room Air Positive well nourished and well developed General Appearance ED: well developed HEENT Reports dry mucous membranes Mouth ED: Yes dry mucous membranes Mouth: dry mucous membranes Eyes EOMs intact bilaterally Chest Wall inspection of chest normal and palpation of chest normal Resp normal respiratory effort Resp Narrative: Diminished lung sounds bilateral bases. Cardio regular rate and regular rhythm GI non-tender Auscultation: hypoactive bowel sounds Palpation: soft Extremity Extremity Narrative: Superficial abrasion over the anterior left knee. No focal tenderness. Neuro oriented x3 Neuro Narrative: Patient able to lift both legs off the bed without difficulty. No focal neurologic deficit noted. Psych mental status grossly normal Skin Skin Narrative: Abrasion to knee as noted above. MDM MDM MDM Narrative Medical decision making narrative: IV line established. Patient placed on oval or circular glass cutter. EKG obtained to evaluate for cardiac arrhythmia/ischemia. Chest x-ray obtained to evaluate for acute lung pathology, cardiac size, or mediastinal abnormality. Labwork obtained to evaluate for leukocytosis, anemia, and electrolyte derangement. Urinalysis obtained to evaluate for infection/hematuria. Swab for COVID, inf luenza, and RSV will be obtained. Blood and urine cultures have been obtained. Patient's temperature is currently 99.7. He states he did take Tylenol for his fever but does not remember what time. I will check with when she is at bedside. History & Record Review Discussion w/independent historian: Patient and Family Additional record(s) reviewed:: Prior labs Lab Data Attestation: I reviewed the patient's lab results. Labs: Laboratory Results - last 24 hr 07/10/23 07/10/23 00:03 00:45 WBC 7.2 RBC 4.67 Hgb 13.1 Hct 40.0 MCV 85.7 MCH 28.1 MCHC 32.8 RDW Std Deviation 41.6 RDW Coeff of Letty 13.4 Plt Count 183 MPV 9.9 Immature Gran % (Auto) 0.300 Neut % (Auto) 73.1 H Lymph % (Auto) 13.0 L [place] % (Auto) 10.2 H Eos % (Auto) 2.7 Baso % (Auto) 0.7 Absolute Neuts (auto) 5.2 Absolute Lymphs (auto) 0.93 Nucleated RBC % 0 PT 16.0 H INR 1.3 APTT 36.8 H Sodium 137 Potassium 3.5 Chloride 101 Carbon Dioxide 29.0 Anion Gap 7 BUN 13 Creatinine 0.84 Est GFR (MDRD) Af Amer 115 Est GFR (MDRD) Non-Af 95 BUN/Creatinine Ratio 15.5 Glucose 96 Lactic Acid 1.3 Calcium 8.9 Total Bilirubin 0.90 AST 18 ALT 16 Alkaline Phosphatase 53 Total Protein 7.3 Albumin 3.3 Globulin 4.0 Albumin/Globulin Ratio 0.8 L Urine Color YELLOW Urine Clarity Sl Cloudy Urine pH 8.0 Ur Specific [place] 1.010 Urine Protein Negative Urine Glucose (UA) Normal Urine Ketones Negative Urine Occult Blood 10 H Urine Nitrite Negative Urine Bilirubin Negative Urine Urobilinogen 4 H Ur Leukocyte Esterase 25 H Urine RBC 5-10 SEEN Urine WBC 25-50 SEEN Ur Squamous Epith Cells 10-25 SEEN Ur Transition Epith Cell 0-5 SEEN Ur Renal Epithelial Cell 0-5 SEEN Urine Bacteria 4+ Urine Mucus 0 SEEN Radiography Chest X-Ray - ED: 1 View, Read by ED Physician, Chronic Changes and No Infiltrates Diagnostic Testing: Clinical Impression(s) from Imaging Studies Chest X-Ray 07/10/23 00:02 IMPRESSION: Chronic interstitial parenchymal change. Electronically Signed: Haris Martinez MD at 1:18 EDT , Brain CT 07/10/23 01:03 IMPRESSION: 1. No acute intracranial abnormality. 2. Mild to moderate bilateral periventricular and subcortical white matter chronic small vessel disease with age appropriate cerebral atrophy. 3. Chronic paranasal sinus disease Electronically Signed: Haris Martinez MD at 2:28 EDT , EKG Initial EKG: Attestation: I personally reviewed and interpreted this EKG as follows: Interpretation: Sinus Rhythm (Sinus at 92 with first-degree AV block. Left anterior fascicular block. No acute ischemia.) Treatment and Re-Evaluation :: CBC was normal white count 7.2 with 73% neutrophils. Hemoglobin is 13.1. INR is 1.3. Chemistry studies unremarkable with normal renal function. LFTs are unremarkable. Lactic acid is normal at 1.3. Urinalysis reveals 4+ bacteria with 10-25 epithelial cells and 25-50 white cells. Swab for COVID, influenza, and RSV is negative. Portable chest x-ray per my interpretation reveals mild cardiomegaly with no focal infiltrate. Radiology interpretation reviewed and agrees. Given the patient states that he was having trouble moving his right leg, he is sent for a CT scan of the head. This reveals chronic changes with no acute findings. Patient is given a dose of Rocephin for UTI. is now at bedside. She states that she was trying to walk with him and his gait belt but his legs did not seem to want a move. She had a slowly lowered him to the ground. With his inability to walk at home I will speak with hospitalist regarding admission for antibiotics and physical therapy. Discharge Plan Triage Chief Complaint: Weakness ED Provider: Yanet Ewing Dx/Rx/DC Orders Clinical Impression: UTI (urinary tract infection), Weakness, Fall Prescriptions: No Action Multivitamin 50 Plus 1 EACH tablet 1 ea PO BID Patient Comments: Supplement aspirin 81 MG tablet,chewable 81 mg PO DAILY@0800 Patient Comments: blood thinner cholecalciferol (vitamin D3) [Vitamin D3] 1,000 UNIT capsule 3,000 unit PO DAILY atorvastatin [Lipitor] 80 MG tablet 20 mg PO QHS hydrochlorothiazide 12.5 MG capsule 12.5 mg PO DAILY bupropion HCl 150 MG tablet extended release 24 hr 150 mg PO DAILY buspirone 5 mg Tablet 5 mg PO BID tamsulosin 0.4 mg Capsule 0.4 mg PO BID atorvastatin 40 mg tablet 20 mg PO DAILY carvedilol 6.25 mg tablet 6.25 mg PO BID Patient Comments: TAKE 1 TABLET BY MOUTH TWICE A DAY lidocaine [Lidoderm] 5 % adhesive patch,medicated 1 patch topical DAILY Qty: 15 0RF Rx Instructions: leave on most painful area for up to 12 hrs cyclobenzaprine 10 mg tablet 10 mg PO TID PRN PRN (Reason: muscle spasm) Primary Care Provider: Marilin Gold Referrals: Marilin Gold MD [Primary Care Provider] - Disposition Disposition: Acute Care Hospital [facility]
[2023-07-10] MEDS: 0.9% Normal Saline (1000mL) 1,000 ML 150 ML IV (00:13)
[2023-07-10 00:22] LABS: Absolute Lymphocyte Count 0.93 X10^3/uL (0.83-4.51); Absolute Neutrophil Count 5.2 X10^3/uL (2.0-7.7); Basophil# 0.05 X10^3/uL; Basophil% 0.7 % (0-1); Eosinophil# 0.19 X10^3/uL; Eosinophils% 2.7 % (0-5); Hemoglobin 13.1 g/dL (13.0-16.5); Lymphocyte # 0.93 X10^3/ul (0.83-4.51); Mean Corp Hgb Conc 32.8 g/dL (32-36); Mean Corpuscular Hgb 28.1 pg (27.0-32.0); Mean Corpuscular Volume 85.7 fL (80-94); Mean Platelet Vol. 9.9 fl (6.2-12.0); Monocyte# 0.73 X10^3/uL; Monocyte% 10.2 % (0-10); NRBC Flagged by Analyzer 0 % (0-5); Neutrophil # 5.23 X10^3/uL (2.7-7.7); Neutrophil % 73.1 % (47-70); Platelet Count 183 K/mm3 (150-450); RBC Distribution Width CV 13.4 % (11.6-14.6); RBC Distribution Width SD 41.6 fl (35.1-43.9); Red Blood Count 4.67 M/mm3 (4.6-6.2); White Blood Count 7.2 K/mm3 (4.4-11.0)
[2023-07-10 00:38] LABS: ALB/GLOB Ratio 0.8 RATIO (0.9-2.4); AST(SGOT) 18 U/L (15-37); Alanine Aminotransfer ALT/SGPT 16 U/L (16-61); Albumin, Serum 3.3 g/dL (3.2-5.0); Alkaline Phosphatase 53 U/L (45-117); Anion Gap 7 (5-15); BUN 13 mg/dL (7-18); BUN/Creat Ratio 15.5 RATIO (10-20); Calcium,Total 8.9 mg/dL (8.5-10.1); Chloride 101 mmol/L (98-107); Creatinine, Serum 0.84 mg/dL (0.70-1.30); EST Glomerular Filtration Rate 95 mL/min (>60); Est Glom Filt Rate - Afr Amer 115 mL/min (>60); Glucose 96 mg/dL (74-106); Potassium 3.5 mmol/L (3.5-5.1); Protein, Total 7.3 g/dL (6.4-8.2); Sodium Level 137 mmol/L (136-145)
[2023-07-10 00:46] LABS: International Normalized Ratio 1.3
[2023-07-10 00:47] LABS: Partial Thromboplast Time 36.8 Seconds (24.1-36.2)
[2023-07-10 00:51] LABS: Mucous, Urine 0 SEEN /hpf (<or=2+)
[2023-07-10 00:52] LABS: Lactic Acid 1.3 mmol/L (0.4-1.9)
[2023-07-10 00:56] LABS: Glucose, Dipstick Normal (Normal); Ketone-Dipstick Negative (Negative); Leukocyte Esterase-Dipstick 25 /ul (Negative); Nitrite-Dipstick Negative (Negative); Occult Blood-Urine 10 /ul (Negative); Protein-Dipstick Negative (Negative); Urine Bilirubin Dipstick Negative (Negative); Urine Urobilinogen 4 mg/dl (Normal)
[2023-07-10 00:58] LABS: Color, Urine YELLOW (Yellow); Urine Clarity Sl Cloudy (Clear)
--- NOTE | 2023-07-10 01:03 | CT_ITS ---
STUDY: CT BRAIN WITHOUT CONTRAST REASON FOR EXAM: Male, 73 years old. Right lower extremity weakness RADIATION DOSAGE (If Supplied By Facility): CTDIvol = ( 44.99 ) mGy, DLP = ( 880.47 ) mGycm TECHNIQUE: Transaxial CT imaging of the brain was performed without administration of intravenous contrast material. Individualized dose optimization techniques were used for this CT. COMPARISON: 10/20/2022 FINDINGS: Normal soft tissue structures. Normal calvarium. There is mild cerebral atrophy with widening of the extra-axial spaces and ventricular dilatation. There is mild to moderate bilateral periventricular and subcortical white matter hypoattenuation which is symmetric in distribution. Normal basal ganglia and thalami. Normal brainstem. There is mild cerebellar atrophy. There is no intracranial hemorrhage. There are no findings of an acute ischemic infarction. There is mild mucoperiosteal thickening of the paranasal sinuses. CT/Brain/Head without Contrast IMPRESSION: 1. No acute intracranial abnormality. 2. Mild to moderate bilateral periventricular and subcortical white matter chronic small vessel disease with age appropriate cerebral atrophy. 3. Chronic paranasal sinus disease Electronically Signed: Haris Martinez MD at 2:28 EDT ,
[2023-07-10 01:04] LABS: Bacteria 4+ /hpf (None Seen); Red Blood Cells-Urine 5-10 SEEN /hpf (0-5); Renal Epithelial Cells 0-5 SEEN /hpf (0-5); Squamous Epithelial Cells - UA 10-25 SEEN /hpf (0-5); Transitional Epithelial - Ur 0-5 SEEN /hpf (0-5); White Blood Cells 25-50 SEEN /hpf (0-5)
[2023-07-10] MEDS: Ceftriaxone 1 GM/50 ML BAG IV ×2 (01:45→21:17)
--- NOTE | 2023-07-10 03:06 | HP.PCM.HOS_ITS ---
[facility] - General General Date of Admission: 07/10/23 Date of Service: 07/10/23 Chief Complaint: Fever, Generalized Weakness and Fall. [facility] Narrative HARRIS DUNNE, is a 73 M with a past medical history of essential hypertension, hyperlipidemia, history of CVA; with residual right-sided weakness, obstructive sleep apnea; on CPAP, depression, BPH, history of tobacco abuse and osteoarthritis who presents to [facility] ER complaining of fever, generalized weakness and fall. Mr. Dunne reports his symptoms began approximately 2 to 3 days prior to admission with a gradual onset of generalized weakness along with a mild acute worsening of weakness in his right lower extremity. Then on the evening of July 09, 2023 he became so severely weak that he just lowered himself to the ground to prevent injury from uncontrolled fall with the patient only sustaining a mild abrasion over his Left knee. He also admits to a low-grade fever with a temperature of 99.7 ?F confirmed in ER for which she did take Tylenol at home along with sinus congestion causing him to be unable to breathe through his nostrils but he denies related cough, dysuria, nausea, vomiting, diarrhea or constipation. In the ER he was noted to have a urinalysis positive for acute cystitis; with microscopic hematuria with CT of the head also revealing chronic paranasal sinus disease suspected to be combining to cause generalized weakness with ambulatory dysfunction and fall and he was then admitted to the general medical floor for ongoing care for stay that is expected to be greater than 48 hours. [facility] Medical History Accidental fall Acute cervical myofascial strain Acute eczema Closed head injury without loss of consciousness CPAP (continuous positive airway pressure) dependence Elevated troponin Former smoker Generalized weakness HLD (hyperlipidemia) HTN (hypertension) Murmur, cardiac Sleep apnea Stroke Home Medications [id number] tablet (Multivitamin 50 Plus tablet) 1 ea PO BID supplement 04/09/16 [History Last Taken 08/07/17 09:00 1 tab] aspirin 81 mg chewable tablet 81 mg PO DAILY@0800 heart 04/15/16 [History Last Taken 08/07/17 09:00 81 mg] atorvastatin 80 mg tablet (Lipitor) 20 mg PO QHS cholesterol 02/17/17 [History Last Taken 08/06/17 21:00 80 mg] cholecalciferol (vitamin D3) 25 mcg (1,000 unit) capsule (Vitamin D3) 3,000 unit PO DAILY Supplement 02/17/17 [History Last Taken 08/07/17 09:00 3,000 units] hydrochlorothiazide 12.5 mg capsule 12.5 mg PO DAILY Bp 08/08/17 [History Last Taken 08/07/17 09:00 12.5mg] bupropion HCl 150 mg 24 hr tablet, extended release 150 mg PO DAILY 08/09/17 [History Last Taken Unknown] buspirone 5 mg tablet 5 mg PO BID 08/27/21 [History Last Taken Unknown] tamsulosin 0.4 mg capsule 0.4 mg PO BID 08/27/21 [History Last Taken Unknown] atorvastatin 40 mg tablet 20 mg PO DAILY 02/08/23 [History Last Taken Unknown] carvedilol 6.25 mg tablet 6.25 mg PO BID 02/08/23 [History Last Taken Unknown] lidocaine 5 % topical patch (Lidoderm) 1 patch topical DAILY #15 ea 07/04/23 [Rx Last Taken Unknown] cyclobenzaprine 10 mg tablet 10 mg PO TID PRN PRN muscle spasm 07/10/23 [History Last Taken Unknown] Allergy/AdvReac Type Severity Reaction Status Date / Time lisinopril AdvReac Other Verified 03/11/23 09:47 losartan AdvReac Other Verified 03/11/23 09:47 Family History Father Diabetes Hypertension Heart disease Daughter Breast cancer Surgical History History of tonsillectomy Social History household members: spouse housing: house Smoking Status: Former smoker ROS ROS Narrative Review of systems: General: Patient admits to fever, chills and generalized weakness as per HPI. HENT: Patient admits to stuffy nose as per HPI but he denies sore throat or ear pain. EYES: Denies changes in vision or discharge from eyes. Resp: Denies cough, denies shortness of breath Cardiac: Denies chest pain or palpitations. GI: Denies abdominal pain, denies changes in bowel, denies nausea or vomiting : Denies changes in urination Extremity: Denies swelling Musculoskeletal: Feels somewhat generally weak and unwell with myalgias but denies arthralgias, back pain or extremity pain. Neuro: Patient denies headache or paresthesias but he does admit to a mild acute increase in his right lower extremity weakness as per HPI. Heme: Denies any bleeding or bruising Skin: Denies rashes Psychiatric: No complaints voiced related to uncontrolled depression or anxiety. Endocrine: No polyuria, polydipsia or polyphagia. The rest of the 14 point ROS was negative except for positives in HPI. Vital Signs Vital Signs Vital Signs: 07/09/23 23:50 07/10/23 00:20 07/10/23 00:20 Temperature 99.7 F H Temperature Source Temporal Pulse Rate 98 Respiratory Rate 25 H Respiratory Effort Normal Respiratory Pattern Normal Blood Pressure Blood Pressure Mean Pulse Ox 94 Oxygen Delivery Method Room Air Room Air 07/10/23 00:53 07/10/23 01:00 07/09/23 23:53 Temperature 99.6 F H 99.6 F H Temperature Source Oral Oral Pulse Rate 94 91 94 Respiratory Rate 17 18 19 H Respiratory Effort Respiratory Pattern Blood Pressure 143/93 H 136/75 H 136/75 H Blood Pressure Mean 109 95 95 Pulse Ox 96 94 97 Oxygen Delivery Method Room Air Room Air Room Air 07/10/23 01:50 07/10/23 02:00 Temperature 99.4 F H Temperature Source Temporal Pulse Rate 92 90 Respiratory Rate 19 H 16 Respiratory Effort Respiratory Pattern Blood Pressure 122/78 H 122/78 H Blood Pressure Mean 92 92 Pulse Ox 96 96 Oxygen Delivery Method Room Air Room Air Physical Exam Const alert, oriented x3, no apparent distress, average body habitus and healthy appearing General Appearance: cooperative HEENT normocephalic, head/scalp atraumatic and hearing grossly normal bilaterally HEENT Narrative: Mucous membranes dry. Eyes PERRL and EOMs intact bilaterally Neck no lymphadenopathy and supple Resp Resp Narrative: Diminished breath sounds throughout. Cardio regular rate and regular rhythm GI soft to palpation, non-tender and non-distended Auscultation: hyperactive bowel sounds Extremity normal to inspection and full ROM Skin Skin Narrative: Patient is noted to have an abrasion over his left knee without signs of infection. Neuro oriented x3, CN's II-XII intact bilaterally, moves all extremities and no focal motor deficits Sensorium / Orientation: awake, alert, oriented to person, oriented to place and oriented to time Speech: speech normal Psych affect normal Results Medical Records Data Attestation: I reviewed the patient's medical records Lab / Micro Data Attestation: I reviewed the patient's lab results. 07/10/23 00:03 07/10/23 00:03 Labs: Laboratory Results - last 24 hr 07/10/23 00:03: WBC 7.2, RBC 4.67, Hgb 13.1, Hct 40.0, MCV 85.7, MCH 28.1, MCHC 32.8, RDW Std Deviation 41.6, RDW Coeff of Letty 13.4, Plt Count 183, MPV 9.9, Immature Gran % (Auto) 0.300, Neut % (Auto) 73.1 H, Lymph % (Auto) 13.0 L, [place] % (Auto) 10.2 H, Eos % (Auto) 2.7, Baso % (Auto) 0.7, Absolute Neuts (auto) 5.2, Absolute Lymphs (auto) 0.93, Nucleated RBC % 0, PT 16.0 H, INR 1.3, APTT 36.8 H, Sodium 137, Potassium 3.5, Chloride 101, Carbon Dioxide 29.0, Anion Gap 7, BUN 13, Creatinine 0.84, Est GFR (MDRD) Af Amer 115, Est GFR (MDRD) Non-Af 95, BUN/Creatinine Ratio 15.5, Glucose 96, Lactic Acid 1.3, Calcium 8.9, Total Bilirubin 0.90, AST 18, ALT 16, Alkaline Phosphatase 53, Total Protein 7.3, Albumin 3.3, Globulin 4.0, Albumin/Globulin Ratio 0.8 L 07/10/23 00:45: Urine Color YELLOW, Urine Clarity Sl Cloudy, Urine pH 8.0, Ur Specific [place] 1.010, Urine Protein Negative, Urine Glucose (UA) Normal, Urine Ketones Negative, Urine Occult Blood 10 H, Urine Nitrite Negative, Urine Bilirubin Negative, Urine Urobilinogen 4 H, Ur Leukocyte Esterase 25 H, Urine RBC 5-10 SEEN, Urine WBC 25-50 SEEN, Ur Squamous Epith Cells 10-25 SEEN, Ur Transition Epith Cell 0-5 SEEN, Ur Renal Epithelial Cell 0-5 SEEN, Urine Bacteria 4+, Urine Mucus 0 SEEN Micro: Microbiology 03/29/24 00:12 Mucosa - Nose SARS-CoV-2, Influenza & RSV (PCR) - Final Imaging Radiology Impression Chest X-Ray 07/10/23 00:02 IMPRESSION: Chronic interstitial parenchymal change. Electronically Signed: Haris Martinez MD at 1:18 EDT , Brain CT 07/10/23 01:03 IMPRESSION: 1. No acute intracranial abnormality. 2. Mild to moderate bilateral periventricular and subcortical white matter chronic small vessel disease with age appropriate cerebral atrophy. 3. Chronic paranasal sinus disease Electronically Signed: Haris Martinez MD at 2:28 EDT , Assessment & Plan Assessment/Plan (1) UTI (urinary tract infection): QUALIFIERS: Urinary tract infection type: acute cystitis Hematuria presence: with hematuria Qualified Code(s): N30.01 - Acute cystitis with hematuria (2) Sinusitis: QUALIFIERS: Sinusitis location: unspecified location Chronicity: chronic Qualified Code(s): J32.9 - Chronic sinusitis, unspecified (3) Weakness: (4) Fall: QUALIFIERS: Encounter type: initial encounter Qualified Code(s): W19.XXXA - Unspecified fall, initial encounter PLAN: Plan 1. Acute cystitis; with microscopic hematuria and low-grade fever present on admission - Admit to general medical floor. Continue IV Rocephin begun in the ER and await culture and sensitivity data. Give Tylenol prn for pain or fever. 2. CT head positive for chronic paranasal sinus disease complicating #1 - Continue antibiotics plus start decongestants and prn Afrin nasal spray to open up his clogged nasal passages. 3. History of CVA; with residual right-sided weakness exacerbated by #1 & #2 - Noted. Head CT on admission negative for acute pathologic changes. Consider MRI if symptoms do not resolve quickly with treatment. 4. Generalized weakness with ambulatory dysfunction and fall with mild left knee abrasion arising from #1 - #3 - PT/OT and Case Management to consult and treat in the AM on-rounds with help appreciated in advance. 5. Essential hypertension - Continue home medications except for diuretics until infections outlined above are neutralized. 6. Hyperlipidemia - Resume statin. 7. Obstructive sleep apnea; on CPAP - Continue nocturnal CPAP. 8. Depression - Resume Buspirone. 9. BPH - Continue tamsulosin as previous. 10. History of tobacco abuse - Noted. 11. Osteoarthritis - Give Tylenol as needed. 12. DVT prophylaxis - Lovenox 40 mg subcu daily. Total time: Approximately 55 minutes. Charges/Coding Visit Charges Inpatient E&M: 56756 Init Hosp L2
[2023-07-10] MEDS: 0.9% Normal Saline (1000mL) 1,000 ML 70 ML IV (05:39)
[2023-07-10 07:30] LABS: Absolute Lymphocyte Count 1.25 X10^3/uL (0.83-4.51); Absolute Neutrophil Count 3.5 X10^3/uL (2.0-7.7); Basophil# 0.03 X10^3/uL; Basophil% 0.5 % (0-1); Eosinophils% 3.6 % (0-5); Hematocrit 38.5 % (40-54); Hemoglobin 12.5 g/dL (13.0-16.5); Lymphocyte # 1.25 X10^3/ul (0.83-4.51); Lymphocyte % 22.2 % (19-41); Mean Corp Hgb Conc 32.5 g/dL (32-36); Mean Corpuscular Hgb 27.6 pg (27.0-32.0); Mean Platelet Vol. 9.8 fl (6.2-12.0); Monocyte# 0.65 X10^3/uL; Monocyte% 11.5 % (0-10); NRBC Flagged by Analyzer 0 % (0-5); Neutrophil # 3.48 X10^3/uL (2.7-7.7); Neutrophil % 61.8 % (47-70); Platelet Count 172 K/mm3 (150-450); RBC Distribution Width CV 13.3 % (11.6-14.6); RBC Distribution Width SD 41.7 fl (35.1-43.9); Red Blood Count 4.53 M/mm3 (4.6-6.2); White Blood Count 5.6 K/mm3 (4.4-11.0)
[2023-07-10 08:02] LABS: ALB/GLOB Ratio 0.8 RATIO (0.9-2.4); AST(SGOT) 19 U/L (15-37); Alanine Aminotransfer ALT/SGPT 15 U/L (16-61); Albumin, Serum 3.1 g/dL (3.2-5.0); Alkaline Phosphatase 50 U/L (45-117); Anion Gap 6 (5-15); BUN 10 mg/dL (7-18); BUN/Creat Ratio 13.6 RATIO (10-20); Calcium,Total 8.6 mg/dL (8.5-10.1); Chloride 105 mmol/L (98-107); Creatinine, Serum 0.74 mg/dL (0.70-1.30); EST Glomerular Filtration Rate 111 mL/min (>60); Est Glom Filt Rate - Afr Amer 134 mL/min (>60); Estimated Creatinine Clearance 108.17 ml/min; Globulin 3.7 g/dL (2.2-4.2); Glucose 92 mg/dL (74-106); Phosphorus 3.8 mg/dL (2.5-4.9); Potassium 3.4 mmol/L (3.5-5.1); Protein, Total 6.8 g/dL (6.4-8.2); Sodium Level 137 mmol/L (136-145); Thyroid Stim Hormone (TSH) 3.52 uIU/mL (0.358-3.74)
[2023-07-10] MEDS: Cholecalciferol (VIT D3) 25 MCG TABLET (1,000 UNITS) 75 MCG PO (08:37)
[2023-07-10] MEDS: Multivitamins,Ther W-Minerals Tablet 1 TABLET PO ×2 (08:37→08:38)
[2023-07-10] MEDS: Enoxaparin 40 MG/0.4 ML Syringe SC (08:37)
[2023-07-10] MEDS: Lidocaine 5% Patch 1 PATCH TOPICAL (08:38)
[2023-07-10] MEDS: Aspirin 81 MG TAB.CHEW PO (08:38)
[2023-07-10] MEDS: Carvedilol 6.25 MG Tablet PO ×2 (08:38→17:15)
[2023-07-10] MEDS: busPIRone 5 MG Tablet PO ×2 (08:38→21:05)
[2023-07-10] MEDS: Tamsulosin HCl 0.4 MG Capsule PO ×2 (08:38→21:06)
[2023-07-10] MEDS: buPROPion (XL) 150 MG TABLET.XL PO (08:41)
--- NOTE | 2023-07-10 13:40 | CHAPLAIN ---
Type of Pastoral Visit _x__ Initial Visit ___ Follow-up Visit ___ On-call Visit ___ General Patient Visit ___ Spiritual Assessment ___ Family Conference ___ Bereavement ___ Rapid Response ___ Code Blue ___ Other (describe below) Pastoral Care Referral From _x__ Patient ___ Family ___ Nurse ___ Physician ___ Lead Architect ___ Hands Hanger ___ Other (describe below) Sacrament/Intervention _x__ Active listening ___ Anointing ___ Nondenominational ___ Bereavement ___ Communion ___ Apple exploration ___ _x__ Life review _x__ Prayer ___ Reconciliation ___ Sacrament of Sick _x__ Supportive presence ___ Wedding ___ Other (describe below) Pastoral Comments
--- NOTE | 2023-07-10 14:17 | CASEMGMT ---
FAMILIA BOB Assessment Face to Face with patient for initial transition planning/care coordination assessment. FAMILIA BOB introduced self and role at [facility], pt voices understanding. Pt is A&Ox4 and is resting comfortably in bed and is calm. Pt at bedside. Care providers, pharmacy, and demographics verified. Admitting dx: UTI PCP: Alla Specialists: Dr. Neel Dunne (Psychiatrist - [facility]) Preferred Pharmacy: [facility] Insurance: [place], [facility] A/B Prescription Benefit: Yes LNOK: Alis Dunne (W and Caregiver), Heber Dunne (Son) Living Arrangements: Pt lives with his and in a ranch style home with a BM with HR but the pt does not use the steps. Pt states that there are 4 steps to enter the home that is equipped with a lift chair. ADLs/IADLs: helps with all ADLs Transportation: , son DME: CPAP at night. Shower chair with GB. Raised toilet seat. Lift chair. Walker. W/C. Medical alert button. HHC/SNF: HHC history last summer for falls. Pt states that they are looking into getting the pt into a SNF retirement in [place] or [place]. Pt currently has a Reel Winder that comes to the home every Thursday so the pt can go buy groceries. Pt?s goal: Short term goal is home no needs after this stay. watermelon inspector goal is SNF. Plan: 6-click is 18. PT/OT evals pending. Pt refuses HHC at this time. Pt and pt both state that they would feel safe with the pt discharging home with the continuation of the pt being the caregiver. Pt will also continue the clinical laboratory aide q Thursday. Pt denies further needs. CM to follow for safe DC from [facility]. Zuleyka Dunne RN, CM
--- NOTE | 2023-07-10 20:03 | PCM.HOSP.N ---
Hospitalist Note Patient was seen and examined today, I talked with his who was present at the time my examination. Patient had a fall out of bed earlier this evening and had superficial injuries to both knees. Patient remains slightly confused at this time, he was confused earlier in the day when I saw him also. Patient's IV fluid was stopped, his BUN and creatinine are normal, I will continue IV antibiotics and patient will continue to see PT and OT.
[2023-07-10] MEDS: Atorvastatin Calcium 10 MG Tablet PO (21:06)
[2023-07-11 03:00] VITALS: BP 120/72; PULSE 83; RESP 16; TEMP 36.8; O2SAT 96
[2023-07-11 03:54] VITALS: BMI 40.2
[2023-07-11 06:30] LABS: Absolute Lymphocyte Count 1.63 X10^3/uL (0.83-4.51); Absolute Neutrophil Count 6.3 X10^3/uL (2.0-7.7); Basophil# 0.05 X10^3/uL; Basophil% 0.5 % (0-1); Eosinophils% 3.2 % (0-5); Hematocrit 38.8 % (40-54); Hemoglobin 12.4 g/dL (13.0-16.5); Lymphocyte # 1.63 X10^3/ul (0.83-4.51); Lymphocyte % 17.5 % (19-41); Mean Corpuscular Hgb 27.5 pg (27.0-32.0); Mean Platelet Vol. 10.7 fl (6.2-12.0); Monocyte# 1.02 X10^3/uL; Monocyte% 10.9 % (0-10); NRBC Flagged by Analyzer 0 % (0-5); Neutrophil # 6.32 X10^3/uL (2.7-7.7); Neutrophil % 67.7 % (47-70); POSITIVE COUNT YES; Platelet Count 159 K/mm3 (150-450); RBC Distribution Width CV 13.5 % (11.6-14.6); RBC Distribution Width SD 42.2 fl (35.1-43.9); Red Blood Count 4.51 M/mm3 (4.6-6.2); White Blood Count 9.3 K/mm3 (4.4-11.0)
[2023-07-11 07:22] LABS: Differential Comment SCANNED
[2023-07-11 07:23] LABS: Platelet Morphology LARGE
[2023-07-11 07:27] LABS: Anion Gap 6 (5-15); BUN 14 mg/dL (7-18); BUN/Creat Ratio 20.6 RATIO (10-20); Calcium,Total 8.9 mg/dL (8.5-10.1); Chloride 103 mmol/L (98-107); Creatinine, Serum 0.68 mg/dL (0.70-1.30); EST Glomerular Filtration Rate 122 mL/min (>60); Est Glom Filt Rate - Afr Amer 147 mL/min (>60); Estimated Creatinine Clearance 108.53 ml/min; Glucose 115 mg/dL (74-106); Potassium 3.4 mmol/L (3.5-5.1); Sodium Level 136 mmol/L (136-145)
[2023-07-11 08:13] VITALS: O2SAT 94
[2023-07-11 09:26] VITALS: BP 145/76; PULSE 70; RESP 18; TEMP 36.2; O2SAT 95
[2023-07-11] MEDS: Lidocaine 5% Patch 1 PATCH TOPICAL (09:31)
[2023-07-11] MEDS: Cholecalciferol (VIT D3) 25 MCG TABLET (1,000 UNITS) 75 MCG PO (09:32)
[2023-07-11] MEDS: Carvedilol 6.25 MG Tablet PO ×2 (09:32→15:56)
[2023-07-11] MEDS: Aspirin 81 MG TAB.CHEW PO ×2 (09:32→09:33)
[2023-07-11] MEDS: busPIRone 5 MG Tablet PO ×2 (09:33→21:09)
[2023-07-11] MEDS: Tamsulosin HCl 0.4 MG Capsule PO ×2 (09:33→21:09)
[2023-07-11] MEDS: Enoxaparin 40 MG/0.4 ML Syringe SC (09:34)
[2023-07-11] MEDS: buPROPion (XL) 150 MG TABLET.XL PO (09:36)
[2023-07-11] MEDS: Multivitamins,Ther W-Minerals Tablet 1 TABLET PO ×2 (09:38→15:57)
--- NOTE | 2023-07-11 14:06 | PN.HOSP_ITS ---
Reason for Visit Reason for Visit: Diagnoses Chronic sinusitis, unspecified (07/10/23) Acute cystitis with hematuria (07/10/23) Weakness (07/10/23) Unspecified fall, initial encounter (07/10/23) Subjective Subjective Patient was seen and examined today, he is alert and appears appropriate. His is in the room at the time my examination. Urine culture grew out gram- negative rc lactose freight checker, I have elected to keep the patient on ceft riaxone at this time. Objective Data Objective Data Vital Signs: Vital Signs Temp Pulse Resp BP Pulse Ox O2 Del Method 97.2 F L 70 18 145/76 H 95 Room Air 07/11/23 09:26 07/11/23 09:26 07/11/23 09:26 07/11/23 09:26 07/11/23 09:26 07/11/23 13:04 Oxygen Delivery Method Room Air Weight: 127.3 kg Body Mass Index (BMI) 40.2 Intake & Output: Intake and Output for Last 24 Hours 07/09/23 07/10/23 07/11/23 23:59 23:59 23:59 Intake Total 2523.67 / 2523.67 400 / 400 Output Total 500 / 500 250 / 250 Balance 2023.67 / 2023.67 150 / 150 Lab / Micro Data 07/11/23 05:55 07/11/23 05:55 Labs: Laboratory Results - last 24 hr 07/11/23 05:55: WBC 9.3, RBC 4.51 L, Hgb 12.4 L, Hct 38.8 L, MCV 86.0, MCH 27.5, MCHC 32.0, RDW Std Deviation 42.2, RDW Coeff of Letty 13.5, Plt Count 159, MPV 10.7, Immature Gran % (Auto) 0.200, Neut % (Auto) 67.7, Lymph % (Auto) 17.5 L, [place] % (Auto) 10.9 H, Eos % (Auto) 3.2, Baso % (Auto) 0.5, Absolute Neuts (auto) 6.3, Absolute Lymphs (auto) 1.63, Nucleated RBC % 0, Differential Comment SCANNED, Plt Morphology Comment LARGE, Sodium 136, Potassium 3.4 L, Chloride 103, Carbon Dioxide 27.0, Anion Gap 6, BUN 14, Creatinine 0.68 L, Estim Creat Clear Calc 108.53, Est GFR (MDRD) Af Amer 147, Est GFR (MDRD) Non-Af 122, BUN/Creatinine Ratio 20.6 H, Glucose 115 H, Calcium 8.9 Micro: Microbiology 07/10/23 00:45 Urine, Clean Catch Urine Culture - Preliminary GNR lactose freight checker 07/10/23 00:12 Mucosa - Nose SARS-CoV-2, Influenza & RSV (PCR) - Final Physical Exam Const alert, oriented x3, no apparent distress and well nourished Constitutional Narrative: Patient is morbidly obese General Appearance: cooperative, well kempt and well developed Orientation / Consciousness: awake, oriented to person, oriented to place and oriented to time HEENT normocephalic, head/scalp atraumatic and moist oral mucous membranes Eyes PERRL, EOMs intact bilaterally and conjunctivae normal Neck supple, no JVD, thyroid normal and no carotid bruits General: trachea midline Resp normal respiratory effort, no retractions, no use of accessory muscles and clear to auscultation bilaterally Auscultation: Negative for rales, rhonchi or wheezes Cardio regular rate, regular rhythm, S1 normal heart sound, S2 normal heart sound, no murmurs, no rub and no gallops GI normal to inspection, nondistended, normoactive bowel sounds, soft to palpation, non-tender and non-distended Extremity no clubbing, cyanosis or edema Neuro oriented x3, CN's II-XII intact bilaterally, moves all extremities, no focal motor deficits and no sensory deficits noted Sensorium / Orientation: awake and alert Speech: speech normal Psych affect normal Assessment & Plan Assessment/Plan (1) UTI (urinary tract infection): QUALIFIERS: Urinary tract infection type: acute cystitis Hematuria presence: with hematuria Qualified Code(s): N30.01 - Acute cystitis with hematuria PLAN: Plan 1. Acute cystitis-patient will continue on IV Rocephin, await urine culture results #2 acute debility secondary to #1 and deconditioning-PT and OT are working with the patient, it is possible he may have to go to an extended care facility at the time of discharge if he is not improved with his ADLs and IADLs #3 morbid obesity-complicates care, management, recovery, and prognosis #4 hyperlipidemia-patient is on atorvastatin #5 essential hypertension-patient will remain on his present blood pressure medications, they will be adjusted if necessary Total clinical time spent by myself addressing the patient's medical issues, reviewing all of his data, and collaborating with patient's care team: 35- minutes Charges/Coding Visit Charges Inpatient E&M: 55832 Subs Hosp L2
[2023-07-11 15:39] VITALS: BP 111/71; PULSE 69; RESP 18; TEMP 36.3; O2SAT 97
[2023-07-11 21:05] VITALS: BP 105/67; PULSE 72; RESP 18; TEMP 36.4; O2SAT 93
[2023-07-11] MEDS: Atorvastatin Calcium 10 MG Tablet PO (21:09)
[2023-07-11] MEDS: Ceftriaxone 1 GM/50 ML BAG IV (21:10)
[2023-07-12 03:04] VITALS: BP 111/64; PULSE 71; RESP 18; TEMP 36.2; O2SAT 98
[2023-07-12 05:20] VITALS: BMI 40.7
[2023-07-12 08:18] VITALS: O2SAT 96
[2023-07-12 09:00] VITALS: BP 122/79; PULSE 80; RESP 18; TEMP 36.3; O2SAT 94
[2023-07-12] MEDS: Multivitamins,Ther W-Minerals Tablet 1 TABLET PO ×2 (09:07→09:08)
[2023-07-12] MEDS: Carvedilol 6.25 MG Tablet PO ×2 (09:07→16:40)
[2023-07-12] MEDS: Lidocaine 5% Patch 1 PATCH TOPICAL (09:07)
[2023-07-12] MEDS: Enoxaparin 40 MG/0.4 ML Syringe SC (09:07)
[2023-07-12] MEDS: Cholecalciferol (VIT D3) 25 MCG TABLET (1,000 UNITS) 75 MCG PO (09:08)
[2023-07-12] MEDS: busPIRone 5 MG Tablet PO ×2 (09:08→21:07)
[2023-07-12] MEDS: Tamsulosin HCl 0.4 MG Capsule PO ×2 (09:09→21:07)
[2023-07-12] MEDS: buPROPion (XL) 150 MG TABLET.XL PO (09:15)
--- NOTE | 2023-07-12 10:14 | PN.HOSP_ITS ---
Reason for Visit Reason for Visit: Diagnoses Chronic sinusitis, unspecified (07/10/23) Acute cystitis with hematuria (07/10/23) Weakness (07/10/23) Unspecified fall, initial encounter (07/10/23) Subjective Subjective Patient was seen and examined today, he is alert and appropriate, he is oriented. Patient's urine culture grew out Klebsiella aerogenes-it is sensitive to all antibiotics tested except for nitrofurantoin. Objective Data Objective Data Vital Signs: Vital Signs Temp Pulse Resp BP Pulse Ox O2 Del Method 97.4 F L 80 18 122/79 H 94 Room Air 07/12/23 09:00 07/12/23 09:00 07/12/23 09:00 07/12/23 09:00 07/12/23 09:00 07/12/23 09:00 Oxygen Delivery Method Room Air Weight: 128.7 kg Body Mass Index (BMI) 40.7 Intake & Output: Intake and Output for Last 24 Hours 07/10/23 07/11/23 07/12/23 23:59 23:59 23:59 Intake Total 2523.67 / 2523.67 970 / 970 Output Total 500 / 500 750 / 750 250 / 250 Balance 2023.67 / 2023.67 220 / 220 -250 / -250 Lab / Micro Data 07/11/23 05:55 07/11/23 05:55 Micro: Microbiology 07/10/23 00:47 Blood Culture (Wb) - Right Hand Blood Culture - Preliminary No growth in 48 hours. 07/10/23 00:03 Blood Culture (Wb) - Left Forearm Blood Culture - Preliminary No growth in 48 hours. 07/10/23 00:45 Urine, Clean Catch Urine Culture - Final Klebsiella aerogenes 07/10/23 00:12 Mucosa - Nose SARS-CoV-2, Influenza & RSV (PCR) - Final Physical Exam Narrative alert, oriented x3, no apparent distress and well nourished Constitutional Narrative: Patient is morbidly obese General Appearance: cooperative, well kempt and well developed Orientation / Consciousness: awake, oriented to person, oriented to place and oriented to time HEENT normocephalic, head/scalp atraumatic and moist oral mucous membranes Eyes PERRL, EOMs intact bilaterally and conjunctivae normal Neck supple, no JVD, thyroid normal and no carotid bruits General: trachea midline Resp normal respiratory effort, no retractions, no use of accessory muscles and clear to auscultation bilaterally Auscultation: Negative for rales, rhonchi or wheezes Cardio regular rate, regular rhythm, S1 normal heart sound, S2 normal heart sound, no murmurs, no rub and no gallops GI normal to inspection, nondistended, normoactive bowel sounds, soft to palpation, non-tender and non-distended Extremity no clubbing, cyanosis or edema Neuro oriented x3, CN's II-XII intact bilaterally, moves all extremities, no focal mot or deficits and no sensory deficits noted Sensorium / Orientation: awake and alert Speech: speech normal Psych affect normal Assessment & Plan Assessment/Plan (1) Weakness: (2) UTI (urinary tract infection): QUALIFIERS: Urinary tract infection type: acute cystitis Hematuria presence: with hematuria Qualified Code(s): N30.01 - Acute cystitis with hematuria PLAN: Plan 1. Acute cystitis secondary to Klebsiella aerogenes-patient will be switched to oral antibiotics today #2 acute debility secondary to #1 and deconditioning-PT and OT are working with the patient, it is possible he may have to go to an extended care facility at the time of discharge if he is not improved with his ADLs and IADLs #3 morbid obesity-complicates care, management, recovery, and prognosis #4 hyperlipidemia-patient is on atorvastatin #5 essential hypertension-patient will remain on his present blood pressure medications, they will be adjusted if necessary Total clinical time spent by myself addressing the patient's medical issues, reviewing all of his data, and collaborating with patient's care team: 35- minutes Charges/Coding Visit Charges Inpatient E&M: 21817 Subs Hosp L2
[2023-07-12] MEDS: Cephalexin 500 MG Capsule PO ×2 (14:58→21:06)
[2023-07-12 15:01] VITALS: BP 107/73; PULSE 75; RESP 18; TEMP 36.6; O2SAT 94
[2023-07-12 20:49] VITALS: BP 112/70; PULSE 69; RESP 18; TEMP 36.7; O2SAT 93
[2023-07-12] MEDS: MELATONIN 3 MG TABLET PO (21:06)
[2023-07-12] MEDS: Atorvastatin Calcium 10 MG Tablet PO (21:07)
[2023-07-13 03:40] VITALS: BP 124/68; PULSE 63; RESP 18; TEMP 36.5; O2SAT 95
[2023-07-13 05:35] VITALS: BMI 40.2
[2023-07-13] MEDS: Cephalexin 500 MG Capsule PO ×3 (05:54→21:03)
[2023-07-13 09:18] VITALS: BP 117/90; PULSE 95; RESP 16; TEMP 36.7; O2SAT 94
[2023-07-13] MEDS: 0.9% Saline Lock 10 ML Syringe IV (09:20)
[2023-07-13] MEDS: Carvedilol 6.25 MG Tablet PO ×2 (09:22→16:22)
[2023-07-13] MEDS: Tamsulosin HCl 0.4 MG Capsule PO ×2 (09:22→21:03)
[2023-07-13] MEDS: Cholecalciferol (VIT D3) 25 MCG TABLET (1,000 UNITS) 75 MCG PO (09:22)
[2023-07-13] MEDS: busPIRone 5 MG Tablet PO ×2 (09:22→21:03)
[2023-07-13] MEDS: Multivitamins,Ther W-Minerals Tablet 1 TABLET PO ×2 (09:23→16:22)
[2023-07-13] MEDS: Lidocaine 5% Patch 1 PATCH TOPICAL (09:23)
[2023-07-13] MEDS: Enoxaparin 40 MG/0.4 ML Syringe SC (09:23)
[2023-07-13] MEDS: buPROPion (XL) 150 MG TABLET.XL PO (09:25)
[2023-07-13] MEDS: Aspirin 81 MG TAB.CHEW PO (10:46)
--- NOTE | 2023-07-13 14:44 | PCM.DC.SUM ---
Providers Date of Admission: 07/10/23 Primary Care Physician: Dr. Marilin Gold MD Reason For Visit: UTI, CHRONIC PARANASAL SINUS DISEASE AND Diagnosis Discharge Diagnosis (1) Weakness: Status: Acute Code(s): R53.1 - Weakness (2) UTI (urinary tract infection): Status: Acute Code(s): N39.0 - Urinary tract infection, site not specified Qualifiers: Urinary tract infection type: acute cystitis Hematuria presence: with hematuria Qualified Code(s): N30.01 - Acute cystitis with hematuria Medications at Discharge Home Medications icqvlsfjykyr-ocjeunwi-jxuzvt tablet (Multivitamin 50 Plus tablet) 1 ea PO BID supplement 04/09/16 aspirin 81 mg chewable tablet 81 mg PO DAILY@0800 heart 04/15/16 atorvastatin 80 mg tablet (Lipitor) 20 mg PO QHS cholesterol 02/17/17 cholecalciferol (vitamin D3) 25 mcg (1,000 unit) capsule (Vitamin D3) 3,000 unit PO DAILY Supplement 02/17/17 hydrochlorothiazide 12.5 mg capsule 12.5 mg PO DAILY Bp 08/08/17 bupropion HCl 150 mg 24 hr tablet, extended release 150 mg PO DAILY 08/09/17 buspirone 5 mg tablet 5 mg PO BID 08/27/21 tamsulosin 0.4 mg capsule 0.4 mg PO BID 08/27/21 atorvastatin 40 mg tablet 20 mg PO DAILY 02/08/23 carvedilol 6.25 mg tablet 6.25 mg PO BID 02/08/23 lidocaine 5 % topical patch (Lidoderm) 1 patch topical DAILY #15 ea 07/04/23 cyclobenzaprine 10 mg tablet 10 mg PO TID PRN PRN muscle spasm 07/10/23 cefdinir 300 mg capsule 300 mg PO BID #10 caps 07/13/23 Weight / BMI Weight Weight: 280 lb 10.375 oz Body Mass Index (BMI) 40.2 ABG / Lab / Microbiology Data 07/11/23 05:55 07/11/23 05:55 Microbiology: Microbiology 07/10/23 00:47 Blood Culture (Wb) - Right Hand Blood Culture - Preliminary No growth in 48 hours. 07/10/23 00:03 Blood Culture (Wb) - Left Forearm Blood Culture - Preliminary No growth in 48 hours. 07/10/23 00:45 Urine, Clean Catch Urine Culture - Final Klebsiella aerogenes 07/10/23 00:12 Mucosa - Nose SARS-CoV-2, Influenza & RSV (PCR) - Final D/C Instructions Discharge Diet: Low fat / Low cholesterol Weight Bearing Status: Weight bearing as tolerated Call your doctor if you observe: Fever of 101 or Higher, Shortness of breath, Dizziness, Swelling in the ankles and Chest pain Discharge Plan Admission Admit Date/Time: 07/10/23 03:23 Primary Reason for Your Visit: UTI Attending Provider: Zulay Ugalde Primary Care Provider: Marilin Gold Consulting Providers: Torsten Killian; Ricky Bonner Instructions Patient Instructions: ED Urinary Tract Infections in Men Discharge Orders/Prescriptions Prescriptions: New cefdinir 300 mg capsule 300 mg PO BID Qty: 10 0RF Continued Multivitamin 50 Plus 1 EACH tablet 1 ea PO BID Patient Comments: Supplement aspirin 81 MG tablet,chewable 81 mg PO DAILY@0800 Patient Comments: blood thinner cholecalciferol (vitamin D3) [Vitamin D3] 1,000 UNIT capsule 3,000 unit PO DAILY atorvastatin [Lipitor] 80 MG tablet 20 mg PO QHS hydrochlorothiazide 12.5 MG capsule 12.5 mg PO DAILY bupropion HCl 150 MG tablet extended release 24 hr 150 mg PO DAILY buspirone 5 mg Tablet 5 mg PO BID tamsulosin 0.4 mg Capsule 0.4 mg PO BID atorvastatin 40 mg tablet 20 mg PO DAILY carvedilol 6.25 mg tablet 6.25 mg PO BID Patient Comments: TAKE 1 TABLET BY MOUTH TWICE A DAY lidocaine [Lidoderm] 5 % adhesive patch,medicated 1 patch topical DAILY Qty: 15 0RF Rx Instructions: leave on most painful area for up to 12 hrs cyclobenzaprine 10 mg tablet 10 mg PO TID PRN PRN (Reason: muscle spasm) Referrals / Follow Up: Marilin Gold MD [Primary Care Provider] - Within 2 Weeks Disposition Disposition (needs filled in before D/C Order can be placed): Home, Self Care
--- NOTE | 2023-07-13 15:14 | PHA.DC.MC.R ---
Pharmacy [facility] Pharm[facility] Service has performed discharge medication reconciliation and counseling for this patient. 1. CEFDINIR 300MG PO BID X 5 DAYS The patient's discharge medication list was reviewed for discrepancies and discrepancies were resolved. The patient was counseled on the following discharge medications and changes in medications for homegoing were reviewed. The Reason for Use, instructions for use, and potential side effects were reviewed for all new medications. The patient's questions regarding all of their medications were answered. The patient was able to verbally demonstrate an understanding of their discharge medications. Medications at Discharge Home Medications hwuzkgbqvbwn-jissrgut-urhqwz tablet (Multivitamin 50 Plus tablet) 1 ea PO BID supplement 04/09/16 aspirin 81 mg chewable tablet 81 mg PO DAILY@0800 heart 04/15/16 atorvastatin 80 mg tablet (Lipitor) 20 mg PO QHS cholesterol 02/17/17 cholecalciferol (vitamin D3) 25 mcg (1,000 unit) capsule (Vitamin D3) 3,000 unit PO DAILY Supplement 02/17/17 hydrochlorothiazide 12.5 mg capsule 12.5 mg PO DAILY Bp 08/08/17 bupropion HCl 150 mg 24 hr tablet, extended release 150 mg PO DAILY mental health 08/09/17 buspirone 5 mg tablet 5 mg PO BID mental health 08/27/21 tamsulosin 0.4 mg capsule 0.4 mg PO BID prostate 08/27/21 atorvastatin 40 mg tablet 20 mg PO DAILY cholesterol 02/08/23 carvedilol 6.25 mg tablet 6.25 mg PO BID blood pressure 02/08/23 lidocaine 5 % topical patch (Lidoderm) 1 patch topical DAILY #15 ea 07/04/23 cyclobenzaprine 10 mg tablet 10 mg PO TID PRN PRN muscle spasm 07/10/23 cefdinir 300 mg capsule 300 mg PO BID #10 caps 07/13/23
--- NOTE | 2023-07-13 15:30 | CASEMGMT ---
Discharge Planning A list of?SNF providers including quality and resource use data and consistent with the patient's preferred geographic region, medical needs, and insurance network was created in [employer] Guide.? This list was provided to the SW. Samreen Godoy Discharge Planning Asst.
--- NOTE | 2023-07-13 16:00 | CASEMGMT ---
Social Work Notified that patient may benefit from further skilled therapy at discharge. Met with patient, , Alis, and gmygtpee-vw-ful Daniele in room. There was a minor grandson in the room as well, though not participating in conversation. Discharge planning discussed, and all in agreement with short term SNF, to allow patient more time to get stronger before going home. Through discussion this was reported intent as short term rehab. This procedure writer provided patient with [facility] SNF list for patient's insurance network and geographical region, including Medicare quality data and start ratings. Educated which facilities in this region accept [place], versus list provided for patient's Medicare Benefit. Patient does hove [facility]. After discussion, decision made to have patient go to the under MCR benefit rather than the [facility], as there are more options to choose from, and in light of this being for short term rehab. Choices are: [facility], [facility] and [facility]. Referral made to Tomeka at [facility]. [facility] is taking the Health Plan, though on a case by case basis as does have to get one time agreements. Tomeka reviewing referral and will update [facility]. While speaking with patient, did verify that Advance Directives on file are accurate, as well as verified demographics for this patient. Plan: [facility], referral pending. [facility] to follow. -PEPPER [place]
--- NOTE | 2023-07-13 16:02 | PN_ITS ---
Subjective Subjective Patient seen and examined. He had no active complaints.Review of systems is otherwise negative. He is awaiting placement. Objective Data Objective Data Vital Signs: Vital Signs Temp Pulse Resp BP Pulse Ox O2 Del Method 98.1 F 95 16 117/90 H 94 Room Air 07/13/23 09:18 07/13/23 09:18 07/13/23 09:18 07/13/23 09:18 07/13/23 09:18 07/13/23 09:18 Oxygen Delivery Method Room Air Weight: 280 lb 10.375 oz Body Mass Index (BMI) 40.2 Intake & Output: Intake and Output for Last 24 Hours 07/11/23 07/12/23 07/13/23 23:59 23:59 23:59 Intake Total 970 / 970 900 / 900 480 / 480 Output Total 750 / 750 1750 / 1750 800 / 800 Balance 220 / 220 -850 / -850 -320 / -320 Lab / Micro Data 07/11/23 05:55 07/11/23 05:55 Micro: Microbiology 07/10/23 00:47 Blood Culture (Wb) - Right Hand Blood Culture - Preliminary No growth in 48 hours. 07/10/23 00:03 Blood Culture (Wb) - Left Forearm Blood Culture - Preliminary No growth in 48 hours. 07/10/23 00:45 Urine, Clean Catch Urine Culture - Final Klebsiella aerogenes 07/10/23 00:12 Mucosa - Nose SARS-CoV-2, Influenza & RSV (PCR) - Final Physical Exam Const alert, oriented x3 and no apparent distress General Appearance: cooperative and well developed HEENT normocephalic, head/scalp atraumatic, moist oral mucous membranes and oropharynx normal Eyes PERRL and EOMs intact bilaterally Neck no lymphadenopathy, supple and no JVD Lymph Lymphatic: no lymphadenopathy noted and no lymphedema noted Resp normal respiratory effort, normal air movement and clear to auscultation bilaterally Cardio regular rate, regular rhythm, S1 normal heart sound, S2 normal heart sound and no murmurs GI normal to inspection, nondistended, normoactive bowel sounds, soft to palpation, non-tender and non-distended Extremity normal capillary refill, no clubbing, cyanosis or edema and no calf tenderness General Extremity: no tenderness to palpation of joints or extremities Skin General Skin Exam: no breakdown and turgor normal Neuro CN's II-XII intact bilaterally, no focal motor deficits, no sensory deficits noted and deep tendon reflexes 2+ bilaterally Motor Exam: strength 5/5 throughout and general weakness Psych thought process normal, cooperative and affect normal Appearance: appropriate Assessment & Plan Assessment/Plan (1) Fall: QUALIFIERS: Encounter type: initial encounter Qualified Code(s): W19.XXXA - Unspecified fall, initial encounter (2) UTI (urinary tract infection): QUALIFIERS: Urinary tract infection type: acute cystitis Hematuria presence: with hematuria Qualified Code(s): N30.01 - Acute cystitis with hematuria (3) Weakness: PLAN: Plan #UTI * due to Klebsiella aerogenes * Currently on p.o. Keflex based on sensitivity results. #Debility and weakness: PT OT on board. Fall precautions. Wanted to go home but now wants to go to a short-term rehab facility. #Morbid obesity: BMI is 40.3. Complete acute care, expected recovery and pro gnosis. #Hyperlipidemia: On statin #Benign essential hypertension: Continue current BP meds-carvedilol Depression: On BuSpar and wellbutrin DVT prophylaxis: Lovenox Disposition: Awaiting placement Charges/Coding Visit Charges Inpatient E&M: 12053 Subs Hosp L2
[2023-07-13 16:19] VITALS: BP 110/70; PULSE 71; RESP 18; TEMP 36.6; O2SAT 95
[2023-07-13] MEDS: Lactobacillis Acidophilus 2 CAP PO (21:03)
[2023-07-13] MEDS: Atorvastatin Calcium 10 MG Tablet PO (21:03)
[2023-07-13] MEDS: MELATONIN 3 MG TABLET PO (21:06)
[2023-07-13] MEDS: Acetaminophen 325 MG Tablet 650 MG PO (21:06)
[2023-07-13 21:09] VITALS: BP 102/61; PULSE 62; RESP 16; TEMP 36.4; O2SAT 93
[2023-07-14 02:13] VITALS: BMI 40.4
[2023-07-14 03:10] VITALS: BP 99/87; PULSE 66; RESP 17; TEMP 36.6; O2SAT 92
[2023-07-14] MEDS: Cephalexin 500 MG Capsule PO (05:24)
[2023-07-14] MEDS: 0.9% Saline Lock 10 ML Syringe IV (07:58)
[2023-07-14] MEDS: Lidocaine 5% Patch 1 PATCH TOPICAL (07:58)
[2023-07-14] MEDS: busPIRone 5 MG Tablet PO ×2 (07:59→21:15)
[2023-07-14] MEDS: Multivitamins,Ther W-Minerals Tablet 1 TABLET PO ×2 (07:59→18:31)
[2023-07-14] MEDS: Aspirin 81 MG TAB.CHEW PO (07:59)
[2023-07-14] MEDS: Carvedilol 6.25 MG Tablet PO ×2 (07:59→18:31)
[2023-07-14 08:00] VITALS: BP 138/75; PULSE 78
[2023-07-14] MEDS: Enoxaparin 40 MG/0.4 ML Syringe SC (08:00)
[2023-07-14] MEDS: Cholecalciferol (VIT D3) 25 MCG TABLET (1,000 UNITS) 75 MCG PO (08:00)
[2023-07-14] MEDS: Tamsulosin HCl 0.4 MG Capsule PO ×2 (08:00→21:15)
[2023-07-14] MEDS: buPROPion (XL) 150 MG TABLET.XL PO (08:01)
[2023-07-14 09:55] VITALS: O2SAT 88
[2023-07-14 10:00] VITALS: BP 107/64; PULSE 91; RESP 16; TEMP 36.8; O2SAT 94
--- NOTE | 2023-07-14 10:03 | CASEMGMT ---
Social Work TCU can take pt and started precert early this morning. SW let pt and know, will continue to follow, pt should be able to be discharged to TCU once precert is attained. ANASTASIA Cabrera
[2023-07-14] MEDS: Cefdinir 300 MG Capsule PO ×2 (11:29→21:15)
[2023-07-14] MEDS: Lactobacillis Acidophilus 2 CAP PO ×2 (11:29→21:14)
--- NOTE | 2023-07-14 13:34 | PN_ITS ---
Subjective Subjective Patient seen and examined. He had no complaints and was sitting up comfortably in bed. Review of systems otherwise negative. He is awaiting placement. He has remained hemodynamically stable. Objective Data Objective Data Vital Signs: Vital Signs Temp Pulse Resp BP Pulse Ox O2 Del Method O2 Flow Rate 98.2 F 91 16 107/64 94 Nasal Cannula 2 07/14/23 10:00 07/14/23 10:00 07/14/23 10:00 07/14/23 10:00 07/14/23 10:00 07/14/23 10:00 07/14/23 10:00 Oxygen Flow Rate (L/min) 2 Oxygen Delivery Method Nasal Cannula Weight: 282 lb 3.067 oz Body Mass Index (BMI) 40.4 Intake & Output: Intake and Output for Last 24 Hours 07/12/23 07/13/23 07/14/23 23:59 23:59 23:59 Intake Total 900 / 900 1160 / 1160 Output Total 1750 / 1750 1800 / 1800 650 / 650 Balance -850 / -850 -640 / -640 -650 / -650 Lab / Micro Data 07/11/23 05:55 07/11/23 05:55 Micro: Microbiology 07/10/23 00:47 Blood Culture (Wb) - Right Hand Blood Culture - Preliminary No growth in 48 hours. 07/10/23 00:03 Blood Culture (Wb) - Left Forearm Blood Culture - Preliminary No growth in 48 hours. 07/10/23 00:45 Urine, Clean Catch Urine Culture - Final Klebsiella aerogenes 07/10/23 00:12 Mucosa - Nose SARS-CoV-2, Influenza & RSV (PCR) - Final Physical Exam Const alert, oriented x3, no apparent distress, average body habitus, healthy appearing and well nourished Constitutional Narrative: Patient is morbidly obese General Appearance: cooperative, well kempt and well developed Orientation / Consciousness: awake, oriented to person, oriented to place and oriented to time HEENT normocephalic, head/scalp atraumatic, hearing grossly normal bilaterally, moist oral mucous membranes and oropharynx normal Eyes PERRL, EOMs intact bilaterally and conjunctivae normal Neck no lymphadenopathy, supple, no JVD, thyroid normal and no carotid bruits General: trachea midline Lymph Lymphatic: no lymphadenopathy noted and no lymphedema noted Resp normal respiratory effort, normal air movement, no retractions, no use of accessory muscles and clear to auscultation bilaterally Resp Narrative: Diminished breath sounds throughout. Auscultation: Negative for rales, rhonchi or wheezes Cardio regular rate, regular rhythm, S1 normal heart sound, S2 normal heart sound, no murmurs, no rub and no gallops GI normal to inspection, nondistended, normoactive bowel sounds, soft to palpation, non-tender and non-distended Auscultation: hyperactive bowel sounds Extremity normal to inspection, full ROM, normal capillary refill, no clubbing, cyanosis or edema and no calf tenderness General Extremity: no tenderness to palpation of joints or extremities Skin General Skin Exam: no breakdown and turgor normal Neuro oriented x3, CN's II-XII intact bilaterally, moves all extremities, no focal motor deficits, no sensory deficits noted and deep tendon reflexes 2+ bilaterally Sensorium / Orientation: awake, alert, oriented to person, oriented to place and oriented to time Speech: speech normal Motor Exam: strength 5/5 throughout and general weakness Psych thought process normal, cooperative and affect normal Appearance: appropriate Assessment & Plan Assessment/Plan (1) Fall: QUALIFIERS: Encounter type: initial encounter Qualified Code(s): W19.XXXA - Unspecified fall, initial encounter (2) UTI (urinary tract infection): QUALIFIERS: Urinary tract infection type: acute cystitis Hematuria presence: with hematuria Qualified Code(s): N30.01 - Acute cystitis with hematuria (3) Weakness: PLAN: Plan #UTI * due to Klebsiella aerogenes * P.o. Keflex switched to p.o. cefdinir based on sensitivity results. #Debility and weakness: PT OT on board. Fall precautions. Wanted to go home but now wants to go to a short-term rehab facility. #Morbid obesity: BMI is 40.3. Complete acute care, expected recovery and prognosis. #Hyperlipidemia: On statin #Benign essential hypertension: Continue current BP meds-carvedilol Depression: On BuSpar and wellbutrin DVT prophylaxis: Lovenox Disposition: Awaiting placement Charges/Coding Visit Charges Inpatient E&M: 67933 Subs Hosp L2
[2023-07-14 13:57] VITALS: BP 110/81; PULSE 77; RESP 18; TEMP 36.6; O2SAT 94
[2023-07-14 18:28] VITALS: BP 125/74; PULSE 72; RESP 18; TEMP 36.6; O2SAT 93
[2023-07-14] MEDS: Oxymetazoline 0.05% 1 SPRAY SPRAY.BTL NASAL (21:13)
[2023-07-14] MEDS: Atorvastatin Calcium 10 MG Tablet PO (21:16)
[2023-07-15] VITALS: BP 131/75; PULSE 65; RESP 18; TEMP 36.7; O2SAT 93
[2023-07-15 03:24] VITALS: BP 124/76; PULSE 72; RESP 18; TEMP 36.5; O2SAT 96
[2023-07-15 04:45] VITALS: BMI 40.0
[2023-07-15] MEDS: busPIRone 5 MG Tablet PO (08:25)
[2023-07-15] MEDS: Cefdinir 300 MG Capsule PO (08:25)
[2023-07-15] MEDS: Tamsulosin HCl 0.4 MG Capsule PO (08:25)
[2023-07-15] MEDS: Multivitamins,Ther W-Minerals Tablet 1 TABLET PO (08:26)
[2023-07-15] MEDS: Lactobacillis Acidophilus 2 CAP PO (08:26)
[2023-07-15] MEDS: Aspirin 81 MG TAB.CHEW PO (08:26)
[2023-07-15] MEDS: Carvedilol 6.25 MG Tablet PO (08:26)
[2023-07-15] MEDS: Enoxaparin 40 MG/0.4 ML Syringe SC (08:27)
[2023-07-15] MEDS: Cholecalciferol (VIT D3) 25 MCG TABLET (1,000 UNITS) 75 MCG PO (08:28)
[2023-07-15] MEDS: Lidocaine 5% Patch 1 PATCH TOPICAL (08:28)
[2023-07-15] MEDS: buPROPion (XL) 150 MG TABLET.XL PO (08:29)
[2023-07-15 09:25] VITALS: BP 131/66; PULSE 65; RESP 16; TEMP 36.6; O2SAT 97
--- NOTE | 2023-07-15 10:28 | TREXTCAR_ITS ---
Diet Diet Order/Speech Therapy: 07/10/23 05:14 Diet: Cardiac - Heart Healthy Food consistency:: Regular Liquid Consistency:: Regular/Thin Is pt able to select menu?: Yes Routine Orders/Code Status Enema Type: Fleetz Enema Frequency: Daily PRN Suppository Type: Dulcolax 10mg Suppository Frequency: Daily PRN O2 Frequency: PRN Keep PO Greater than or Equal to (%): 90 Wound(s) Right knee: Wound Type: Abrasion Left knee: Wound Type: Abrasion coccyx: Wound Type: Abrasion Therapies Weight Bearing: Weight bearing as tolerated Physical Therapy: Eval and Treat Occupational Therapy: Eval and Treat Problem/Diagnosis (1) Fall: Status: Acute Code(s): W19.XXXA - Unspecified fall, initial encounter (2) UTI (urinary tract infection): Status: Acute Code(s): N39.0 - Urinary tract infection, site not specified (3) Weakness: Status: Acute Code(s): R53.1 - Weakness Plan #UTI * due to Klebsiella aerogenes * P.o. Keflex switched to p.o. cefdinir based on sensitivity results. #Debility and weakness: PT OT on board. Fall precautions. Wanted to go home but now wants to go to a short-term rehab facility. #Morbid obesity: BMI is 40.3. Complete acute care, expected recovery and prognosis. #Hyperlipidemia: On statin #Benign essential hypertension: Continue current BP meds-carvedilol Depression: On BuSpar and wellbutrin DVT prophylaxis: Lovenox Disposition: Awaiting placement Allergies/Procedures Done in Hospital Allergies lisinopril Adverse Reaction (Verified 03/11/23 09:47) Other ANXIETY/HOT FLASHES losartan Adverse Reaction (Verified 03/11/23 09:47) Other Anxiety/hot flashes Procedures: None Type of Care/Length of Stay Estimated LOS: Convalescent Care Less Than 30 days Type of Care Needed: Skilled Rehab Potential: Good Prognosis: Good Additional Orders/Day of Discharge Day of Discharge: 07/15/23 Dietary and Speech Recommendations Dietitian Recommendations/Changes: continue cardiac diet as tolerated; ONS if PO intake at meals fails Discharge Plan Admission Admit Date/Time: 07/10/23 03:23 Primary Reason for Your Visit: UTI Attending Provider: Zulay Ugalde Primary Care Provider: Marilin Gold Consulting Providers: Torsten Killian; Ricky Bonner Instructions Patient Instructions: ED Urinary Tract Infections in Men Discharge Orders/Prescriptions Prescriptions: New cefdinir 300 mg capsule 300 mg PO BID Qty: 10 0RF Continued Multivitamin 50 Plus 1 EACH tablet 1 ea PO BID Patient Comments: Supplement aspirin 81 MG tablet,chewable 81 mg PO DAILY@0800 Patient Comments: blood thinner cholecalciferol (vitamin D3) [Vitamin D3] 1,000 UNIT capsule 3,000 unit PO DAILY atorvastatin [Lipitor] 80 MG tablet 20 mg PO QHS hydrochlorothiazide 12.5 MG capsule 12.5 mg PO DAILY bupropion HCl 150 MG tablet extended release 24 hr 150 mg PO DAILY buspirone 5 mg Tablet 5 mg PO BID tamsulosin 0.4 mg Capsule 0.4 mg PO BID atorvastatin 40 mg tablet 20 mg PO DAILY carvedilol 6.25 mg tablet 6.25 mg PO BID Patient Comments: TAKE 1 TABLET BY MOUTH TWICE A DAY lidocaine [Lidoderm] 5 % adhesive patch,medicated 1 patch topical DAILY Qty: 15 0RF Rx Instructions: leave on most painful area for up to 12 hrs cyclobenzaprine 10 mg tablet 10 mg PO TID PRN PRN (Reason: muscle spasm) Referrals / Follow Up: Marilin Gold MD [Primary Care Provider] - 07/20/23 2:00 pm Disposition Disposition (needs filled in before D/C Order can be placed): Home, Self Care (1) Fall Qualifiers: Encounter type: initial encounter Qualified Code(s): W19.XXXA - Unspecified fall, initial encounter (2) UTI (urinary tract infection) Qualifiers: Urinary tract infection type: acute cystitis Hematuria presence: with hematuria Qualified Code(s): N30.01 - Acute cystitis with hematuria
--- NOTE | 2023-07-15 10:29 | DS.PCM_ITS ---
Providers Date of Admission: 07/10/23 Date of Discharge: 07/15/23 Primary Care Physician: Dr. Marilin Gold MD Reason For Visit: UTI, CHRONIC PARANASAL SINUS DISEASE AND Diagnosis Discharge Diagnosis (1) Fall: Status: Acute Code(s): W19.XXXA - Unspecified fall, initial encounter Qualifiers: Encounter type: initial encounter Qualified Code(s): W19.XXXA - Unspecified fall, initial encounter (2) UTI (urinary tract infection): Status: Acute Code(s): N39.0 - Urinary tract infection, site not specified Qualifiers: Hematuria presence: with hematuria Urinary tract infection type: acute cystitis Qualified Code(s): N30.01 - Acute cystitis with hematuria (3) Weakness: Status: Acute Code(s): R53.1 - Weakness Plan #UTI * due to Klebsiella aerogenes * P.o. Keflex switched to p.o. cefdinir based on sensitivity results. #Debility and weakness: PT OT on board. Fall precautions. Wanted to go home but now wants to go to a short-term rehab facility. #Morbid obesity: BMI is 40.3. Complete acute care, expected recovery and prognosis. #Hyperlipidemia: On statin #Benign essential hypertension: Continue current BP meds-carvedilol Depression: On BuSpar and wellbutrin DVT prophylaxis: Lovenox Disposition: Awaiting placement Medications at Discharge Home Medications [id number] tablet (Multivitamin 50 Plus tablet) 1 ea PO BID supplement 04/09/16 aspirin 81 mg chewable tablet 81 mg PO DAILY@0800 heart 04/15/16 atorvastatin 80 mg tablet (Lipitor) 20 mg PO QHS cholesterol 02/17/17 cholecalciferol (vitamin D3) 25 mcg (1,000 unit) capsule (Vitamin D3) 3,000 unit PO DAILY Supplement 02/17/17 hydrochlorothiazide 12.5 mg capsule 12.5 mg PO DAILY Bp 08/08/17 bupropion HCl 150 mg 24 hr tablet, extended release 150 mg PO DAILY mental health 08/09/17 buspirone 5 mg tablet 5 mg PO BID mental health 08/27/21 tamsulosin 0.4 mg capsule 0.4 mg PO BID prostate 08/27/21 atorvastatin 40 mg tablet 20 mg PO DAILY cholesterol 02/08/23 carvedilol 6.25 mg tablet 6.25 mg PO BID blood pressure 02/08/23 lidocaine 5 % topical patch (Lidoderm) 1 patch topical DAILY pain #15 ea 07/04/23 cyclobenzaprine 10 mg tablet 10 mg PO TID PRN PRN muscle spasm 07/10/23 cefdinir 300 mg capsule 300 mg PO BID antibiotic #10 caps 07/13/23 Hospital Course Operations None Procedures None Summary of Care Provided Minutes Spent on Discharge: 45 Hospital Course: Patient is a 73-year-old male with a past medical history as outlined was admitted through the ED on 07/10/2023 with a complaint of fever as well as generalized weakness and fall. His symptoms started about 2 to 3 days prior to admission. He had worsening weakness in his right lower extremity and said he became so weak on the evening of July 09, 2023 that he just lowered himself to the ground to prevent injury from an uncontrolled fall. He had also had a low- grade fever. He also complained of sinus congestion but denied any cough or shortness of breath, nausea or vomiting or any other symptoms. He did not have any urinary symptoms but in the ED urinalysis showed evidence of UTI. CT of the brain showed chronic paranasal sinus disease but he had no other acute intracranial pathology. He was admitted and managed for debility and weakness due to UTI. He was started on IV ceftriaxone and hydrated with IV fluids. He did work with PT OT as well. Urine cultures grew Klebsiella aerogenes. He had been transitioned to p.o. Keflex based on sensitivities he was switched to p.o. cefdinir. Patient was discharged to senior living facility on 07/15/2023. He is to follow-up with his primary care doctor within 1 to 2 weeks. He was given a prescription for p.o. cefdinir 300 mg twice daily for 5 days. Patient seen and examined prior to discharge. He had no active complaints and had an uneventful night. Review of systems otherwise negative. Labs and vitals reviewed. Home medication reviewed and reconciled. Physical Exam Const alert, oriented x3, no apparent distress, average body habitus, no limitations, healthy appearing and well nourished Constitutional Narrative: Patient is morbidly obese General Appearance: cooperative, comfortable, well kempt and well developed Orientation / Consciousness: awake, oriented to person, oriented to place and oriented to time HEENT normocephalic, head/scalp atraumatic, hearing grossly normal bilaterally, moist oral mucous membranes and oropharynx normal Eyes PERRL, EOMs intact bilaterally and conjunctivae normal Neck no lymphadenopathy, supple, no JVD, thyroid normal and no carotid bruits General: trachea midline Lymph Lymphatic: no lymphadenopathy noted and no lymphedema noted Resp normal respiratory effort, normal air movement, no retractions, no use of accessory muscles and clear to auscultation bilaterally Resp Narrative: Diminished breath sounds throughout. Auscultation: Negative for rales, rhonchi or wheezes Cardio regular rate, regular rhythm, S1 normal heart sound, S2 normal heart sound, no murmurs, no rub and no gallops GI normal to inspection, nondistended, normoactive bowel sounds, soft to palpation, non-tender and non-distended Auscultation: hyperactive bowel sounds Extremity normal to inspection, full ROM, normal capillary refill, no clubbing, cyanosis or edema and no calf tenderness General Extremity: no tenderness to palpation of joints or extremities Skin no rashes or lesions noted General Skin Exam: no breakdown and turgor normal Neuro oriented x3, CN's II-XII intact bilaterally, moves all extremities, no focal motor deficits, no sensory deficits noted and deep tendon reflexes 2+ bilaterally Sensorium / Orientation: awake, alert, oriented to person, oriented to place and oriented to time Speech: speech normal Motor Exam: strength 5/5 throughout and general weakness Psych thought process normal, cooperative and affect normal Appearance: appropriate Weight / BMI Weight Weight: 279 lb 1.683 oz Body Mass Index (BMI) 40.0 ABG / Lab / Microbiology Data 07/11/23 05:55 07/11/23 05:55 Microbiology: Microbiology 07/10/23 00:47 Blood Culture (Wb) - Right Hand Blood Culture - Final No growth in 5 days. 07/10/23 00:03 Blood Culture (Wb) - Left Forearm Blood Culture - Final No growth in 5 days. 07/10/23 00:45 Urine, Clean Catch Urine Culture - Final Klebsiella aerogenes 07/10/23 00:12 Mucosa - Nose SARS-CoV-2, Influenza & RSV (PCR) - Final D/C Instructions Discharge Diet: Low fat / Low cholesterol Discharge Activity: Return to Normal Activity Weight Bearing Status: Weight bearing as tolerated Call your doctor if you observe: Fever of 101 or Higher, Shortness of breath, Di zziness, Swelling in the ankles and Chest pain Meaningful Use Info Meaningful Use Diagnoses (Choose all that apply): None applicable Discharge Plan Admission Admit Date/Time: 07/10/23 03:23 Primary Reason for Your Visit: UTI Attending Provider: Zulay Ugalde Primary Care Provider: Marilin Gold Consulting Providers: Torsten Killian; Ricky Bonner Instructions Patient Instructions: ED Urinary Tract Infections in Men Discharge Orders/Prescriptions Prescriptions: New cefdinir 300 mg capsule 300 mg PO BID Qty: 10 0RF Continued Multivitamin 50 Plus 1 EACH tablet 1 ea PO BID Patient Comments: Supplement aspirin 81 MG tablet,chewable 81 mg PO DAILY@0800 Patient Comments: blood thinner cholecalciferol (vitamin D3) [Vitamin D3] 1,000 UNIT capsule 3,000 unit PO DAILY atorvastatin [Lipitor] 80 MG tablet 20 mg PO QHS hydrochlorothiazide 12.5 MG capsule 12.5 mg PO DAILY bupropion HCl 150 MG tablet extended release 24 hr 150 mg PO DAILY buspirone 5 mg Tablet 5 mg PO BID tamsulosin 0.4 mg Capsule 0.4 mg PO BID atorvastatin 40 mg tablet 20 mg PO DAILY carvedilol 6.25 mg tablet 6.25 mg PO BID Patient Comments: TAKE 1 TABLET BY MOUTH TWICE A DAY lidocaine [Lidoderm] 5 % adhesive patch,medicated 1 patch topical DAILY Qty: 15 0RF Rx Instructions: leave on most painful area for up to 12 hrs cyclobenzaprine 10 mg tablet 10 mg PO TID PRN PRN (Reason: muscle spasm) Referrals / Follow Up: Marilin Gold MD [Primary Care Provider] - 07/20/23 2:00 pm Disposition Disposition (needs filled in before D/C Order can be placed): Nursing Home Facility Charges/Coding Visit Charges Inpatient E&M: 96046 Disch Hosp >30min
--- NOTE | 2023-07-15 11:19 | CASEMGMT ---
Social Work Received notice from Tomeka at [facility], that was able to get insurance approval with [employer]. Patient may admit to skilled level of care. Met with patient and Alis in room. Updated to approval and plan for discharge sometime today. Patient remains agreeable with this plan. Faxed orders to TCU, for continuity of care of patient. Plan: Discharge to [facility] skilled level of care, convalescent 30 day or less stay. -PEPPER [place]
== END 2023-07-15 12:23 | disposition skilled nursing facility (03) | DRG 690 ==
LOC: ED 07-10 02:36 → PCU 07-10 04:13
PROVIDERS: Internal Medicine; Admitting Provider Internal Medicine; Emergency Provider Emergency Medicine; PCP Family Medicine; Visit Provider Student in an Organized Health Care Education/Training Program
DX: N30.01 Acute cystitis with hematuria (principal); I69.351 Hemiplegia and hemiparesis following cerebral infarction affecting right dominant side; Z68.41 Body mass index [BMI] 40.0-44.9, adult; E66.01 Morbid (severe) obesity due to excess calories; I10 Essential (primary) hypertension; F32.A Depression, unspecified; E78.5 Hyperlipidemia, unspecified; G47.33 Obstructive sleep apnea (adult) (pediatric); W06.XXXA Fall from bed, initial encounter; B96.1 Klebsiella pneumoniae [K. pneumoniae] as the cause of diseases classified elsewhere; N40.0 Benign prostatic hyperplasia without lower urinary tract symptoms; R53.81 Other malaise; Z79.82 Long term (current) use of aspirin; Z79.899 Other long term (current) drug therapy; Z87.891 Personal history of nicotine dependence
CPT/HCPCS: 36415; 70450; 71045; 80048; 80053; 81001; 83605; 83735; 84100; 84443; 85025; 85610; 85730; 87040; 87077; 87086; 87088; 87186; 87631; 93005; 94668; 97110; 97116; 97162; 97166; 97530; 99283; J7030; A4216

== ENCOUNTER 2023-07-15 12:44 | Inpatient (IN) | payer MEDICARE, SELFPAY ==
[2023-07-15 13:00] VITALS: BP 146/78; PULSE 78; RESP 16; TEMP 36.7; O2SAT 93; BMI 39.6
[2023-07-15 13:03] VITALS: BMI 39.6
--- NOTE | 2023-07-15 15:50 | NURSING ---
Criminal Justice Faculty Note; Activity Asset: Complete Miguel is independent in his choice of daily activities. Miguel's and family will visit and bring him items he may need. He welcomes visits from the General Maintenance Engineer and therapy dog when available. Staff will remind him of weekly activities and respect his right to say no.
[2023-07-15] MEDS: Ensure Plus High Protein 120 ML LIQUID PO (16:27)
[2023-07-15] MEDS: Tamsulosin HCl 0.4 MG Capsule PO (16:27)
[2023-07-15] MEDS: Carvedilol 6.25 MG Tablet PO (16:27)
[2023-07-15] MEDS: Multivitamins,Ther W-Minerals Tablet 1 TABLET PO (16:27)
[2023-07-15 16:28] VITALS: BP 129/74; PULSE 70
--- NOTE | 2023-07-15 18:44 | HP.PCM_ITS ---
HPI - General General Date of Admission: 07/15/23 Date of Service: 07/15/23 Chief Complaint: Here for rehabilitation. HPI Narrative 07/10/2023 HARRIS CLEMENS, is a 73 Male who presents to [facility] ED with weakness. Feverish, weak. Weakness, fall, weakness x 2 days. Right leg gave out, lowered himself to floor. Fever, chills, frequency of urine. Fever 99.7, WBC 7.2, Lactate 1.3. covid/flu/rsv negative, Chest X-ray negative. CT head negative. Rocepin IV for UTI. 07/10/2023 Admit to [facility]. Rocephin IV for UTI, urine culture pending. CT head showed sinusitis, already on antibiotics. Consider MRI brain for right lower extremity weakness. PT/OT for debility. 07/10/2023 Confused. 07/11/2023 Alert, Appropriate. Urine culture growing GNR lactose vamp throater. Continue Rocephin IV for UTI. 07/12/2023 Urine culture growing Klebsiella Aerogenes pansensitive except for Nitrofurantoin. Change Rocephin IV to oral antibiotics. 07/13/2023 Await placement. Keflex PO for K. Aerogenes UTI. PT/OT for SNF. 07/14/2023 Await placement. Keflex changed to Cefdinir for K. Aerogenes UTI. 07/15/2023 Admit to TCU with debility, here for reahbilitation, strengthening, prior to discharge home with . Still mildly confused. [facility] Medical History (Updated 07/15/23 @ 18:[address] Palomo Anglin MD) Accidental fall Acute cervical myofascial strain Acute eczema Closed head injury without loss of consciousness CPAP (continuous positive airway pressure) dependence Elevated troponin Former smoker Generalized weakness HLD (hyperlipidemia) HTN (hypertension) Murmur, cardiac Sleep apnea Stroke Home Medications epwbubjzjvdf-nqkikjnv-rwjtro tablet (Multivitamin 50 Plus tablet) 1 ea PO BID supplement 04/09/16 [History Last Taken 08/07/17 09:00 1 tab] aspirin 81 mg chewable tablet 81 mg PO DAILY@0800 heart 04/15/16 [History Last Taken 07/15/23] atorvastatin 80 mg tablet (Lipitor) 20 mg PO QHS cholesterol 02/17/17 [History Last Taken 07/13/23] cholecalciferol (vitamin D3) 25 mcg (1,000 unit) capsule (Vitamin D3) 3,000 unit PO DAILY Supplement 02/17/17 [History Last Taken 08/07/17 09:00 3,000 units] hydrochlorothiazide 12.5 mg capsule 12.5 mg PO DAILY Bp 08/08/17 [History Last Taken 08/07/17 09:00 12.5mg] bupropion HCl 150 mg 24 hr tablet, extended release 150 mg PO DAILY mental health 08/09/17 [History Last Taken Unknown] buspirone 5 mg tablet 5 mg PO BID mental health 08/27/21 [History Last Taken Unknown] tamsulosin 0.4 mg capsule 0.4 mg PO BID prostate 08/27/21 [History Last Taken Unknown] atorvastatin 40 mg tablet 20 mg PO DAILY cholesterol 02/08/23 [History Last Taken Unknown] carvedilol 6.25 mg tablet 6.25 mg PO BID blood pressure 02/08/23 [History Last Taken Unknown] lidocaine 5 % topical patch (Lidoderm) 1 patch topical DAILY pain #15 ea 07/04/23 [Rx Last Taken Unknown] cyclobenzaprine 10 mg tablet 10 mg PO TID PRN PRN muscle spasm 07/10/23 [History Last Taken Unknown] cefdinir 300 mg capsule 300 mg PO BID antibiotic #10 caps 07/13/23 [Rx Last Taken Unknown] Allergy/AdvReac Type Severity Reaction Status Date / Time lisinopril AdvReac Other Verified 03/11/23 09:47 losartan AdvReac Other Verified 03/11/23 09:47 Family History Father Diabetes Hypertension Heart disease Daughter Breast cancer Surgical History History of tonsillectomy Social History (Updated 07/15/23 @ 18:[address] Palomo Anglin MD) household members: spouse housing: house Smoking Status: Former smoker alcohol intake: never substance use type: does not use ROS Constitutional Constitutional: Denies chills, fever(s) or weight gain ENT HEENT: Denies headache(s), nasal congestion or nasal discharge Cardiovascular Cardiovascular: Denies chest pain or palpitations Respiratory/Chest Respiratory/Chest: Denies cough, excessive phlegm production or shortness of breath with exertion Gastrointestinal Gastrointestinal: Denies abdominal pain, nausea or vomiting Genitourinary Genitourinary: Denies dysuria Musculoskeletal Musculoskeletal: Denies joint pain or joint swelling Integumentary Integumentary: Denies rash or wounds Neurologic Neurologic: Denies focal weakness, numbness or tingling Psychiatric Psychiatric: Denies anxiety, auditory hallucinations, depression, homicidal ideation or suicidal ideation Vital Signs Vital Signs Vital Signs: 07/15/23 13:00 07/15/23 13:00 07/15/23 16:28 Temperature 98.0 F Temperature Source Temporal Pulse Rate 78 70 Pulse Rhythm Regular Pulse Strength Normal (2+) Respiratory Rate 16 Respiratory Effort Normal Non-Labored Respiratory Depth Normal Respiratory Pattern Normal Blood Pressure 146/78 H 129/74 H Blood Pressure Mean 100 92 Blood Pressure Source Monitor Monitor Blood Pressure Position Semi-Fowlers Sitting Blood Pressure Location Right Arm Right Arm Pulse Ox 93 Oxygen Delivery Method Room Air Weight Weight: 125.328 kg Body Mass Index (BMI) 39.6 Physical Exam Const alert General Appearance: cooperative HEENT normocephalic Eyes PERRL and EOMs intact bilaterally Neck supple, no JVD and no carotid bruits Resp normal respiratory effort, normal air movement and clear to auscultation bilaterally Cardio regular rate and regular rhythm GI normal to inspection, nondistended, normoactive bowel sounds, non-tender and non-distended Extremity normal capillary refill General Extremity: Negative for edema Skin no rashes or lesions noted General Skin Exam: no breakdown Psych affect normal Appearance: appropriate Assessment & Plan Assessment/Plan (1) Debility: (2) Fall: QUALIFIERS: Encounter type: initial encounter Qualified Code(s): W19.XXXA - Unspecified fall, initial encounter (3) UTI (urinary tract infection): QUALIFIERS: Hematuria presence: with hematuria Urinary tract infection type: acute cystitis Qualified Code(s): N30.01 - Acute cystitis with hematuria (4) Sinusitis: QUALIFIERS: Chronicity: chronic Sinusitis location: unspecified location Qualified Code(s): J32.9 - Chronic sinusitis, unspecified (5) Acute encephalopathy: (6) Right leg weakness: (7) HLD (hyperlipidemia): (8) Coronary artery disease: (9) Hypertension: QUALIFIERS: Hypertension type: essential hypertension Qualified Code(s): I10 - Essential (primary) hypertension (10) Depression: (11) Anxiety: (12) BPH (benign prostatic hyperplasia): (13) Hypokalemia: (14) History of stroke: PLAN: Plan 73 year old male with blow past medical history hospitalized for falls, UTI, complicated by sinusitis, encephalopathy, right lower extremity weakness, admitted to TCU with debility, here for rehabilitation, strengthening, prior to discharge home with . * Debility - PT/OT. * Pain - Tylenol 1000mg q6 prn pain (1-10), Lidoderm 1 patch td daily. * Bowel - senna/colace 1 tablet bid prn, Magnesium citrate 300ml daily prn. * Adult immunization - Admnister pneumonia vaccine, covid vaccine, flu vaccine as appropriate. * DVT prophylaxis - Lovenox 40mg sc daily. * Coronary artery disease - Coreg 6.25mg bid, Aspirin 81mg daily. * Stroke - Aspirin 81mg daily. * Hyperlipidemia - Atorvastatin 20mg qhs. 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 * Anxiety - Buspar 5mg bid. * Klebsiella Aerogenes UTI - Cefdinir 300mg bid thru 07/20/2023. * Vitamin D deficiency - D3 75mcg daily. * Muscle spasm - Flexeril 10mg tid prn. * Nutrition - Ensulre Plus 120ml tidcm, MVI 1 tablet daily. * Hypertension - Coreg 6.25mg bid, HCTZ 12.5mg daily. * BPH - Tamsulosin 0.4mg bid.
[2023-07-15] MEDS: Cefdinir 300 MG Capsule PO (22:16)
[2023-07-15] MEDS: busPIRone 5 MG Tablet PO (22:16)
[2023-07-15] MEDS: Atorvastatin Calcium 20 MG Tablet PO (22:16)
[2023-07-16 05:46] LABS: Absolute Lymphocyte Count 1.86 X10^3/uL (0.83-4.51); Absolute Neutrophil Count 4.3 X10^3/uL (2.0-7.7); Basophil# 0.04 X10^3/uL; Basophil% 0.5 % (0-1); Eosinophil# 0.33 X10^3/uL; Eosinophils% 4.5 % (0-5); Hematocrit 38.1 % (40-54); Hemoglobin 12.3 g/dL (13.0-16.5); Lymphocyte # 1.86 X10^3/ul (0.83-4.51); Lymphocyte % 25.5 % (19-41); Mean Corp Hgb Conc 32.3 g/dL (32-36); Mean Corpuscular Hgb 27.4 pg (27.0-32.0); Mean Corpuscular Volume 84.9 fL (80-94); Mean Platelet Vol. 9.6 fl (6.2-12.0); Monocyte# 0.71 X10^3/uL; Monocyte% 9.8 % (0-10); NRBC Flagged by Analyzer 0 % (0-5); Neutrophil # 4.32 X10^3/uL (2.7-7.7); Neutrophil % 59.4 % (47-70); Platelet Count 219 K/mm3 (150-450); RBC Distribution Width CV 13.4 % (11.6-14.6); RBC Distribution Width SD 41.4 fl (35.1-43.9); Red Blood Count 4.49 M/mm3 (4.6-6.2); White Blood Count 7.3 K/mm3 (4.4-11.0)
[2023-07-16] MEDS: Enoxaparin 40 MG/0.4 ML Syringe SC (06:04)
[2023-07-16 06:39] LABS: Anion Gap 6 (5-15); BUN 17 mg/dL (7-18); BUN/Creat Ratio 21.1 RATIO (10-20); Calcium,Total 8.8 mg/dL (8.5-10.1); Chloride 103 mmol/L (98-107); EST Glomerular Filtration Rate 100 mL/min (>60); Est Glom Filt Rate - Afr Amer 121 mL/min (>60); Estimated Creatinine Clearance 107.63 ml/min; Glucose 107 mg/dL (74-106); Potassium 3.6 mmol/L (3.5-5.1); Sodium Level 137 mmol/L (136-145)
[2023-07-16] MEDS: Lidocaine 5% Patch 1 PATCH TOPICAL (09:35)
[2023-07-16] MEDS: hydroCHLOROthiazide 12.5mg 12.5 MG PO (09:36)
[2023-07-16] MEDS: Cholecalciferol (VIT D3) 25 MCG TABLET (1,000 UNITS) 75 MCG PO (09:36)
[2023-07-16] MEDS: Tamsulosin HCl 0.4 MG Capsule PO ×2 (09:38→17:12)
[2023-07-16] MEDS: Ensure Plus High Protein 120 ML LIQUID PO (09:38)
[2023-07-16] MEDS: busPIRone 5 MG Tablet PO ×2 (09:38→22:20)
[2023-07-16] MEDS: Cefdinir 300 MG Capsule PO ×2 (09:38→22:20)
[2023-07-16] MEDS: Aspirin 81 MG TAB.CHEW PO (09:38)
[2023-07-16] MEDS: Multivitamins,Ther W-Minerals Tablet 1 TABLET PO ×2 (09:38→17:12)
[2023-07-16] MEDS: Carvedilol 6.25 MG Tablet PO ×2 (09:38→17:12)
[2023-07-16] MEDS: buPROPion (XL) 150 MG TABLET.XL PO (09:39)
[2023-07-16 09:50] VITALS: BP 113/68; PULSE 94; RESP 18; TEMP 36.6; O2SAT 91
[2023-07-16] MEDS: Acetaminophen 500 MG Tablet 1000 MG PO (10:23)
[2023-07-16] MEDS: cycloBENZAPRine HCl 10 MG Tablet PO (10:23)
[2023-07-16] MEDS: Menthol/Lanolin/Calamine/Znox 113 GM Tube 1 APPLIC TOPICAL ×2 (12:07→22:22)
[2023-07-16] MEDS: Tuberculin,Purif.prot.deriv. 50 TU/ML Vial 0.1 ML ID (12:08)
--- NOTE | 2023-07-16 16:13 | CHAPLAIN ---
Type of Pastoral Visit ___ Initial Visit _x__ Follow-up Visit ___ On-call Visit ___ General Patient Visit ___ Spiritual Assessment ___ Family Conference ___ Bereavement ___ Rapid Response ___ Code Blue ___ Other (describe below) Pastoral Care Referral From _x__ Patient _x__ Family ___ Nurse ___ Physician ___ Mirror Polisher ___ Filter Press Tender Head ___ Other (describe below) Sacrament/Intervention _x__ Active listening ___ Anointing ___ Jainism ___ Bereavement ___ Communion ___ Apple exploration ___ _x__ Life review _x__ Prayer ___ Reconciliation ___ Sacrament of Sick _x__ Supportive presence ___ Wedding ___ Other (describe below) Pastoral Comments patient was seen previously in PCU; pt is open to talk about his situation and the next steps for his care; pt is expecting to go to a [place] SN[place] if there is an opening and states he is willing because my has her own health issues and cannot take care of me too; pt presents self as accepting of his situation and also welcomes a prayer for his support today
--- NOTE | 2023-07-16 16:46 | CASEMGMT ---
Social Work ZAID received a call from patient's , Alis inquiring about patient length of stay and insurance coverage. ZAID informed patient's of [place] insurance coverage benefits; no guarantee of continued stay; NRD 07/23. Patient's informed ZAID that she is working with her son to determine appropriate level of care for patient post discharge. Patient informed ZAID that the patient is a [place] and is service connected receiving [place] benefits. ZAID inquired about support received from the VA to determine senior living care options for the patient. Patient's informed ZAID that she has received information regarding contract facilities through the [place], but she would prefer for the patient to remain local within [facility]. ZAID informed patient's that information for other facilities will be provided to patient and to review. SW met with patient at bedside to provide list of facilities for to review. Patient acknowledge that his is unable to care for him in the home. Patient is uncertain regarding goals for discharge at this time. SW will continue to follow to complete initial intake assessment and discharge planning. KOLTON Anand
[2023-07-16] MEDS: Atorvastatin Calcium 20 MG Tablet PO (22:20)
[2023-07-17] MEDS: Enoxaparin 40 MG/0.4 ML Syringe SC (05:04)
[2023-07-17 05:09] VITALS: PULSE 84; RESP 16; O2SAT 96
[2023-07-17] MEDS: Lidocaine 5% Patch 1 PATCH TOPICAL (09:48)
[2023-07-17] MEDS: buPROPion (XL) 150 MG TABLET.XL PO (09:48)
[2023-07-17] MEDS: Tamsulosin HCl 0.4 MG Capsule PO ×2 (09:48→18:02)
[2023-07-17] MEDS: busPIRone 5 MG Tablet PO ×2 (09:48→22:12)
[2023-07-17] MEDS: Carvedilol 6.25 MG Tablet PO ×2 (09:48→18:02)
[2023-07-17] MEDS: Multivitamins,Ther W-Minerals Tablet 1 TABLET PO ×2 (09:48→18:02)
[2023-07-17] MEDS: Aspirin 81 MG TAB.CHEW PO (09:48)
[2023-07-17] MEDS: Cefdinir 300 MG Capsule PO ×2 (09:48→22:12)
[2023-07-17] MEDS: Cholecalciferol (VIT D3) 25 MCG TABLET (1,000 UNITS) 75 MCG PO (09:48)
[2023-07-17] MEDS: hydroCHLOROthiazide 12.5mg 12.5 MG PO (09:48)
[2023-07-17] MEDS: Menthol/Lanolin/Calamine/Znox 113 GM Tube 1 APPLIC TOPICAL ×2 (09:54→22:12)
[2023-07-17] MEDS: Pneumococcal Vaccine 20 Valent 0.5 ML Syringe IM (14:37)
--- NOTE | 2023-07-17 14:55 | CASEMGMT ---
Social Work SW met with patient and , Alis Dunne at bedside to complete initial intake assessment. SW introduced self and role. Patient and confirmed patient's demographics and contact information. Patient confirmed code status of [id number]. Patient and confirmed advance directive is currently in place. Patient's is primary decision maker, alternate decision makers are the patient's children, son, Heber Dunne and daughter, Stacey. Patient's Advanced Directive is scanned into the chart. SW informed both patient and , Alis of insurance coverage and next review date: 07/24/23. SW informed patient that continuation of skilled service is not guaranteed pending insurance review. SW discussed patient's goals of care. Patient and has plan for half-way care v. [facility] placement. SW discussed referral process and provide list for nursing homes within the geographic area of patient choice, near [place]. Patient's will be reaching out to nursing facilities and assisted living to determine appropriate level of care for patient. SW will continue to follow to assist with discharge plans. KOLTON Anand
--- NOTE | 2023-07-17 15:30 | PHA.CONS_ITS ---
Documented by User: Kamaljit Bear 07/17/23 15:50 TCU RX Drug Regimen Review Subjective/Objective Subjective/Objective: Subjective: TCU admission note. 73 year old male hospitalized for falls, UTI, complicated by sinusitis, encephalopathy, right lower extremity weakness, admitted to TCU with debility, here for rehabilitation, strengthening, prior to discharge home with . Objective: Allergies lisinopril Adverse Reaction (Verified 03/11/23 09:47) Other ANXIETY/HOT FLASHES losartan Adverse Reaction (Verified 03/11/23 09:47) Other Anxiety/hot flashes Current Medications Generic Name Dose Route Start Last Admin Trade Name Freq PRN Reason Stop Dose Admin Acetaminophen 1,000 mg 07/15/23 18:58 07/16/23 10:23 Acetaminophen 500 Mg Tablet PO 1,000 mg Q6H PRN PRN Administration Pain Score 1-10 Aspirin 81 mg 07/16/23 08:00 07/17/23 09:48 Aspirin 81 Mg Tab.Chew PO 81 mg DAILY@0800 ANGELA Administration Atorvastatin Calcium 20 mg 07/15/23 22:00 07/16/23 22:20 Atorvastatin Calcium 20 Mg Tablet PO 20 mg QHS ANGELA Administration Bupropion HCl 150 mg 07/16/23 10:00 07/17/23 09:48 Bupropion (Xl) 150 Mg Tablet.Xl PO 150 mg DAILY ANGELA Administration Buspirone HCl 5 mg 07/15/23 22:00 07/17/23 09:48 Buspirone 5 Mg Tablet PO 5 mg BID ANGELA Administration Calamine/Phenol 1 applic 07/16/23 11:40 07/17/23 09:54 Menthol/Lanolin/Calamine/Znox 113 Gm Tube TOPICAL 1 applic BID ANGELA Administration Protocol Carvedilol 6.25 mg 07/15/23 17:00 07/17/23 09:48 Carvedilol 6.25 Mg Tablet PO 6.25 mg BIDCM [facility] Administration Protocol Cefdinir 300 mg 07/15/23 22:00 07/17/23 09:48 Cefdinir 300 Mg Capsule PO 07/20/23 10:01 300 mg BID ANGELA Administration Cholecalciferol 75 mcg 07/16/23 08:00 07/17/23 09:48 Cholecalciferol (Vit D3) 25 Mcg Tablet (1,000 Units) PO 75 mcg DAILY ANGELA Administration Cyclobenzaprine HCl 10 mg 07/15/23 13:11 07/16/23 10:23 Cyclobenzaprine Hcl 10 Mg Tablet PO 10 mg TID PRN PRN Administration muscle spasm Enoxaparin Sodium 40 mg 07/16/23 06:00 07/17/23 05:04 Enoxaparin 40 Mg/0.4 Ml Syringe SC 40 mg DAILY@0600 ANGELA Administration Hydrochlorothiazide 12.5 mg 07/16/23 10:00 07/17/23 09:48 Hydrochlorothiazide 12.5mg PO 12.5 mg DAILY ANGELA Administration Protocol Lidocaine 1 patch 07/16/23 10:00 07/17/23 09:48 Lidocaine 5% Patch TOPICAL 1 patch DAILY ANGELA Administration Protocol Magnesium Citrate 300 ml 07/15/23 18:58 Magnesium Citrate 300 Ml PO DAILY PRN Constipation Multivitamins/Minerals 1 tablet 07/15/23 17:00 07/17/23 09:48 Multivitamins,Ther W-Minerals Tablet PO 1 tablet BIDCM ANGELA Administration Senna/Docusate Sodium 1 tablet 07/15/23 18:58 Senna/Docusate Sodium 1 Tablet PO BID PRN Constipation Sodium Chloride 10 - 40 ml 07/15/23 13:06 0.9% Saline Lock 10 Ml Syringe IV UD PRN SALINE FLUSH Tamsulosin HCl 0.4 mg 07/15/23 17:30 07/17/23 09:48 Tamsulosin Hcl 0.4 Mg Capsule PO 0.4 mg BID@0830,1730 ANGELA Administration Tuberculin PPD 0.1 ml 07/23/23 10:00 Tuberculin,Purif.Prot.Deriv. 50 Tu/Ml Vial ID 07/23/23 10:01 X1 ONE Problem List (Updated 07/15/23 @ 18:[address] Palomo Anglin MD) Hypokalemia (Acute) BPH (benign prostatic hyperplasia) (Acute) Anxiety (Acute) Depression (Acute) Coronary artery disease (Acute) HLD (hyperlipidemia) (Acute) Right leg weakness (Acute) Acute encephalopathy (Acute) Debility (Acute) Sinusitis (Acute) Fall (Acute) UTI (urinary tract infection) (Acute) History of stroke (Acute) Hypertension (Chronic) Vital Signs Temp Pulse Resp BP Pulse Ox O2 Del Method 97.9 F 84 16 113/68 96 Room Air 07/16/23 09:50 07/17/23 05:09 07/17/23 05:09 07/16/23 09:50 07/17/23 05:09 07/17/23 05:09 Oxygen Delivery Method Room Air Weight: 125.328 kg Body Mass Index (BMI) 39.6 Sodium 137 mmol/L (136-145) 07/16/23 05:35 Potassium 3.6 mmol/L (3.5-5.1) 07/16/23 05:35 Chloride 103 mmol/L (98-107) 07/16/23 05:35 Carbon Dioxide 28.0 mmol/L (21.0-32.0) 07/16/23 05:35 Anion Gap 6 (5-15) 07/16/23 05:35 BUN 17 mg/dL (7-18) 07/16/23 05:35 Creatinine 0.80 mg/dL (0.70-1.30) 07/16/23 05:35 Est GFR (MDRD) Af Amer 121 mL/min (>60) 07/16/23 05:35 Est GFR (MDRD) Non-Af 100 mL/min (>60) 07/16/23 05:35 BUN/Creatinine Ratio 21.1 RATIO (10-20) H 07/16/23 05:35 Glucose 107 mg/dL (74-106) H 07/16/23 05:35 Assessment/Plan: 1. Pain: acetaminophen 1000 mg PO Q6H PRN pain, lidocaine 5% patch 1 patch daily. The patient has used 1 dose of acetaminophen so far this admission. Please continue to monitor pain scores and LFTs (AST/ALT = 19-51 U/L). 2. Bowel: senna/docusate 1 tablet PO BID PRN constipation, magnesium citrate 300 mL PO daily PRN constipation. The patient has not required any PRN magnesium citrate or senna/docusate so far this admission and the patient's last bowel movement was on 07/14/23. Please continue to monitor for PRN medication usage, bowel movements, for diarrhea and for constipation. 3. UTI: cefdinir 300 mg PO BID through 07/20/23. Please continue to monitor for s/s of infection such as elevated WBC (WBC = 7.3 K/mm3), fevers (recent temps = 97.9 F), for fever, chills and diarrhea, as well as for resolution of urinary symptoms. 4. DVT prophylaxis: enoxaparin 40 mg SC daily. Please continue to monitor for s/s of a DVT such as pain/erythema/edema in an extremity, renal function (serum creatinine = 0.80 mg/dL with creatinine clearance ~ 121 mL/min on 07/16/23), for s/s of bleeding/excessive bruising, hemoglobin levels (Hgb = 12.3 g/dL on 07/16/23), and platelet count (Plt = 219 K/mm3 on 07/16/23). 5. Hypertension/CAD/Stroke: aspirin 81 mg PO daily, carvedilol 6.25 mg PO BID, hydrochlorothiazide 12.5 mg PO daily. Please continue to monitor blood pressures (recent range = 107-146/64-87 mmHg), for chest pain, shortness of breath, s/s of stroke, bleeding/excessive bruising, platelet count (Plt = 219 K/mm3 on 07/16/23), GI distress with aspirin administration, fatigue, heart rates (recent range = 65-94 beats/min), renal function (serum creatinine = 0.80 mg/dL with creatinine clearance ~ 121 mL/min on 07/16/23), and for s/s of dehydration. 6. Hyperlipidemia: atorvastatin 20 mg PO daily. Please continue to monitor lipid levels (cholesterol = 97 mg/dL with LDL = 34 mg/dL on 01/13/22), and for myalgias. Please consider ordering lipid levels as patient has not had recent levels. 7. Muscle spasms: cyclobenzaprine 10 mg PO TID PRN muscle spasms. The patient has used 1 dose of cyclobenzaprine so far this admission. Please continue to monitor for muscle spasms, for anticholinergic side effects such as delirium, dry mouth, dry eyes, constipation, urinary retention, for s/s of serotonin syndrome and dizziness. 8. BPH: tamsulosin 0.4 mg PO BID. Please continue to monitor for urinary r etention, urinary flow, and for s/s of orthostasis. 9. Vitamin D deficiency: cholecalciferol 75 mcg PO daily. Please continue to monitor for s/s of vitamin D deficiency as well as vitamin D levels (Vitamin D = 67.5 ng/mL on 10/21/22). 10. Nutrition: Multivitamin PO daily. Please continue to monitor nutritional status. 11. Skin irritation: calmoseptine 1 application topically BID. Please continue to monitor for skin irritation. Assessment/Plan for indications treated with psychotropic medications: 1. Depression: Bupropion XL 150 mg PO daily. Please see provider note regarding stable chronic long-term therapy GDR not recommended. Please continue to monitor for s/s of depression, for SI, for s/s of seizures, for tachycardia, constipation, nausea and vomiting. 2. Anxiety: buspirone 5 mg PO BID. Stable chronic long-term use GDR not recommended. Please continue to monitor for anxiety, for s/s of serotonin syndrome, for dizziness, and for drowsiness. Medical chart and medication regimen reviewed. The following medication irregularities or issues were identified: 1. Hyperlipidemia: atorvastatin 20 mg PO daily. Please consider ordering lipid levels as patient has not had recent levels. Date Date of Note:: 07/17/23 Documented by User: Dr. Palomo Anglin MD 07/18/23 11:49 TCU RX Drug Regimen Review Provider Comments Provider responsibility Provider Comments to Recommendations by Pharmacy: Agree
[2023-07-17 15:52] VITALS: BP 101/59; PULSE 71; RESP 16; TEMP 36.2; O2SAT 95
[2023-07-17 18:03] VITALS: BP 118/63; PULSE 74
[2023-07-17 19:01] VITALS: O2SAT 91
--- NOTE | 2023-07-17 19:02 | CPS ---
pt family is brining in own cpap machine
[2023-07-17] MEDS: Atorvastatin Calcium 20 MG Tablet PO (22:12)
[2023-07-18] MEDS: Enoxaparin 40 MG/0.4 ML Syringe SC (05:12)
[2023-07-18 08:58] VITALS: BP 109/71; PULSE 70; RESP 16; TEMP 36.8; O2SAT 93
[2023-07-18] MEDS: Aspirin 81 MG TAB.CHEW PO (09:00)
[2023-07-18] MEDS: Carvedilol 6.25 MG Tablet PO ×2 (09:01→17:29)
[2023-07-18] MEDS: Multivitamins,Ther W-Minerals Tablet 1 TABLET PO ×2 (09:01→17:29)
[2023-07-18] MEDS: Cholecalciferol (VIT D3) 25 MCG TABLET (1,000 UNITS) 75 MCG PO (09:01)
[2023-07-18] MEDS: Lidocaine 5% Patch 1 PATCH TOPICAL (09:02)
[2023-07-18] MEDS: Menthol/Lanolin/Calamine/Znox 113 GM Tube 1 APPLIC TOPICAL ×2 (09:02→20:50)
[2023-07-18] MEDS: Tamsulosin HCl 0.4 MG Capsule PO ×2 (09:02→17:29)
[2023-07-18] MEDS: hydroCHLOROthiazide 12.5mg 12.5 MG PO (09:02)
[2023-07-18] MEDS: busPIRone 5 MG Tablet PO ×2 (09:02→20:49)
[2023-07-18] MEDS: Cefdinir 300 MG Capsule PO ×2 (09:03→20:49)
[2023-07-18] MEDS: buPROPion (XL) 150 MG TABLET.XL PO (09:04)
--- NOTE | 2023-07-18 12:24 | NURSING ---
Call placed to Dr. Anglin. This nurse verified if Dr. Anglin wanted ordered Lipid Profile for now or fasting lipid profile. Per Dr. Anglin OK for lab to draw now.
[2023-07-18] MEDS: Nystatin Powder 15gm Bottle 1 APPLIC TOPICAL ×2 (13:42→20:50)
[2023-07-18 14:11] LABS: Cholesterol 121 mg/dL (200); High Density Lipoprotein 34 mg/dL; Triglycerides 170 mg/dL; Very Low Density Lipoprotein 34 mg/dL (5-40)
[2023-07-18 17:26] VITALS: BP 118/67; PULSE 76
[2023-07-18] MEDS: Atorvastatin Calcium 20 MG Tablet PO (20:49)
[2023-07-18 21:00] VITALS: O2SAT 93
[2023-07-18] MEDS: Acetaminophen 500 MG Tablet 1000 MG PO (21:03)
[2023-07-19] MEDS: Enoxaparin 40 MG/0.4 ML Syringe SC (06:13)
--- NOTE | 2023-07-19 06:16 | NURSING ---
CPAP removed at this time per pt request.
[2023-07-19 09:54] VITALS: BP 106/67; PULSE 74; RESP 17; TEMP 36.8; O2SAT 93
[2023-07-19] MEDS: Carvedilol 6.25 MG Tablet PO ×2 (09:58→17:24)
[2023-07-19] MEDS: Aspirin 81 MG TAB.CHEW PO (09:58)
[2023-07-19] MEDS: Multivitamins,Ther W-Minerals Tablet 1 TABLET PO ×2 (09:58→17:24)
[2023-07-19] MEDS: Cholecalciferol (VIT D3) 25 MCG TABLET (1,000 UNITS) 75 MCG PO (09:58)
[2023-07-19] MEDS: Menthol/Lanolin/Calamine/Znox 113 GM Tube 1 APPLIC TOPICAL ×2 (09:59→22:32)
[2023-07-19] MEDS: hydroCHLOROthiazide 12.5mg 12.5 MG PO (09:59)
[2023-07-19] MEDS: Tamsulosin HCl 0.4 MG Capsule PO ×2 (09:59→17:24)
[2023-07-19] MEDS: busPIRone 5 MG Tablet PO ×2 (09:59→22:31)
[2023-07-19] MEDS: Nystatin Powder 15gm Bottle 1 APPLIC TOPICAL ×2 (10:00→22:31)
[2023-07-19] MEDS: Cefdinir 300 MG Capsule PO ×2 (10:00→22:31)
[2023-07-19] MEDS: Lidocaine 5% Patch 1 PATCH TOPICAL (10:00)
[2023-07-19] MEDS: buPROPion (XL) 150 MG TABLET.XL PO (10:01)
[2023-07-19] MEDS: Magnesium Citrate 300 ML PO (10:01)
[2023-07-19 17:20] VITALS: BP 107/74; PULSE 71
[2023-07-19] MEDS: Atorvastatin Calcium 20 MG Tablet PO (22:32)
--- NOTE | 2023-07-20 09:19 | NURSING ---
Offered covid vaccine, VIS provided. Patient refuses at this time.
[2023-07-20] MEDS: Cholecalciferol (VIT D3) 25 MCG TABLET (1,000 UNITS) 75 MCG PO (09:41)
[2023-07-20] MEDS: Enoxaparin 40 MG/0.4 ML Syringe SC (09:41)
[2023-07-20] MEDS: Cefdinir 300 MG Capsule PO (09:43)
[2023-07-20] MEDS: Aspirin 81 MG TAB.CHEW PO (09:44)
[2023-07-20] MEDS: Multivitamins,Ther W-Minerals Tablet 1 TABLET PO ×2 (09:44→16:41)
[2023-07-20] MEDS: Carvedilol 6.25 MG Tablet PO ×2 (09:44→16:41)
[2023-07-20] MEDS: hydroCHLOROthiazide 12.5mg 12.5 MG PO (09:44)
[2023-07-20] MEDS: busPIRone 5 MG Tablet PO ×2 (09:45→22:24)
[2023-07-20] MEDS: Tamsulosin HCl 0.4 MG Capsule PO ×2 (09:45→16:41)
[2023-07-20] MEDS: Menthol/Lanolin/Calamine/Znox 113 GM Tube 1 APPLIC TOPICAL ×2 (09:45→22:24)
[2023-07-20] MEDS: Nystatin Powder 15gm Bottle 1 APPLIC TOPICAL ×2 (09:46→22:24)
[2023-07-20] MEDS: buPROPion (XL) 150 MG TABLET.XL PO (09:46)
[2023-07-20] MEDS: Lidocaine 5% Patch 1 PATCH TOPICAL (09:46)
[2023-07-20 10:46] VITALS: BP 108/58; PULSE 76
[2023-07-20 10:47] VITALS: BP 96/57; PULSE 73
[2023-07-20 14:30] VITALS: BP 120/66; PULSE 74; RESP 16; TEMP 37.1; O2SAT 93
[2023-07-20 16:47] VITALS: BP 107/57; PULSE 74
[2023-07-20] MEDS: Atorvastatin Calcium 20 MG Tablet PO (22:24)
[2023-07-21] MEDS: Aspirin 81 MG TAB.CHEW PO (09:11)
[2023-07-21] MEDS: Carvedilol 6.25 MG Tablet PO ×2 (09:11→16:45)
[2023-07-21] MEDS: Multivitamins,Ther W-Minerals Tablet 1 TABLET PO ×2 (09:11→16:45)
[2023-07-21] MEDS: Cholecalciferol (VIT D3) 25 MCG TABLET (1,000 UNITS) 75 MCG PO (09:12)
[2023-07-21] MEDS: busPIRone 5 MG Tablet PO ×2 (09:12→20:58)
[2023-07-21] MEDS: Tamsulosin HCl 0.4 MG Capsule PO ×2 (09:12→16:45)
[2023-07-21] MEDS: buPROPion (XL) 150 MG TABLET.XL PO (09:13)
[2023-07-21] MEDS: Enoxaparin 40 MG/0.4 ML Syringe SC (09:13)
[2023-07-21] MEDS: Nystatin Powder 15gm Bottle 1 APPLIC TOPICAL ×2 (09:14→20:59)
[2023-07-21] MEDS: Menthol/Lanolin/Calamine/Znox 113 GM Tube 1 APPLIC TOPICAL ×2 (09:14→20:59)
[2023-07-21 09:31] VITALS: BP 100/56; PULSE 80
[2023-07-21] MEDS: Lidocaine 5% Patch 1 PATCH TOPICAL (10:53)
[2023-07-21 10:56] VITALS: BP 95/61; PULSE 77
[2023-07-21 13:17] VITALS: BMI 39.8
[2023-07-21 16:46] VITALS: BP 133/80; PULSE 67; RESP 12; TEMP 36.4; O2SAT 94
[2023-07-21] MEDS: Atorvastatin Calcium 20 MG Tablet PO (20:58)
--- NOTE | 2023-07-22 09:13 | NURSING ---
Stoneworking Belt Sander Note; MDS for 07/22/2023 Complete
[2023-07-22] MEDS: Aspirin 81 MG TAB.CHEW PO (09:47)
[2023-07-22] MEDS: Cholecalciferol (VIT D3) 25 MCG TABLET (1,000 UNITS) 75 MCG PO (09:47)
[2023-07-22] MEDS: Carvedilol 6.25 MG Tablet PO ×2 (09:47→16:53)
[2023-07-22] MEDS: Multivitamins,Ther W-Minerals Tablet 1 TABLET PO ×2 (09:47→16:53)
[2023-07-22] MEDS: Tamsulosin HCl 0.4 MG Capsule PO ×2 (09:48→16:54)
[2023-07-22] MEDS: Lidocaine 5% Patch 1 PATCH TOPICAL (09:48)
[2023-07-22] MEDS: buPROPion (XL) 150 MG TABLET.XL PO (09:48)
[2023-07-22] MEDS: Enoxaparin 40 MG/0.4 ML Syringe SC (09:48)
[2023-07-22] MEDS: hydroCHLOROthiazide 12.5mg 12.5 MG PO (09:48)
[2023-07-22] MEDS: busPIRone 5 MG Tablet PO ×2 (09:48→20:39)
[2023-07-22] MEDS: Menthol/Lanolin/Calamine/Znox 113 GM Tube 1 APPLIC TOPICAL ×2 (12:37→20:39)
[2023-07-22] MEDS: Nystatin Powder 15gm Bottle 1 APPLIC TOPICAL ×2 (12:41→20:39)
--- NOTE | 2023-07-22 14:02 | CASEMGMT ---
Social Work IDT met with patient, and son at bedside to complete care plan meeting. Discussed patient progress with therapy (SW/PT/OT). Patient will require continued therapy services. SW educated patient and family regarding [place] Medicare insurance coverage; NRD 07/23. SW informed patient and family that continued stay is not guaranteed. SW discussed goals of care with patient and family. Patient's family goals are placement at long-term v. assisted living. Patient and family was provided list for assisted living and long-term on prior encounter. Patient provided choice for [facility], [facility], [facility]. SW submitted referral via [facility] per family request. Patient's family is requesting to utilize [place] benefits for potential intermediate accountant care. SW will continue to follow to assist with care plans. KOLTON Anand
[2023-07-22 16:00] VITALS: BP 114/68; PULSE 66; RESP 16; TEMP 36.4; O2SAT 96
[2023-07-22] MEDS: Clotrimazole/Betamethasone 1 Tube 1 APPLIC TOPICAL (20:36)
[2023-07-22] MEDS: Atorvastatin Calcium 20 MG Tablet PO (20:39)
[2023-07-23 05:56] LABS: Absolute Lymphocyte Count 1.88 X10^3/uL (0.83-4.51); Absolute Neutrophil Count 3.9 X10^3/uL (2.0-7.7); Basophil# 0.03 X10^3/uL; Basophil% 0.4 % (0-1); Eosinophils% 4.4 % (0-5); Hematocrit 37.4 % (40-54); Hemoglobin 11.9 g/dL (13.0-16.5); Lymphocyte # 1.88 X10^3/ul (0.83-4.51); Lymphocyte % 27.8 % (19-41); Mean Corp Hgb Conc 31.8 g/dL (32-36); Mean Corpuscular Hgb 27.9 pg (27.0-32.0); Mean Corpuscular Volume 87.8 fL (80-94); Monocyte# 0.68 X10^3/uL; Monocyte% 10.1 % (0-10); NRBC Flagged by Analyzer 0 % (0-5); Neutrophil # 3.85 X10^3/uL (2.7-7.7); Platelet Count 233 K/mm3 (150-450); RBC Distribution Width CV 13.6 % (11.6-14.6); RBC Distribution Width SD 43.1 fl (35.1-43.9); Red Blood Count 4.26 M/mm3 (4.6-6.2); White Blood Count 6.8 K/mm3 (4.4-11.0)
[2023-07-23 06:46] LABS: Anion Gap 3 (5-15); BUN 16 mg/dL (7-18); BUN/Creat Ratio 16.6 RATIO (10-20); Calcium,Total 8.9 mg/dL (8.5-10.1); Chloride 102 mmol/L (98-107); Creatinine, Serum 0.96 mg/dL (0.70-1.30); EST Glomerular Filtration Rate 81 mL/min (>60); Est Glom Filt Rate - Afr Amer 98 mL/min (>60); Estimated Creatinine Clearance 90.05 ml/min; Glucose 109 mg/dL (74-106); Potassium 3.5 mmol/L (3.5-5.1); Sodium Level 137 mmol/L (136-145)
[2023-07-23 08:33] VITALS: BP 113/65; PULSE 77; RESP 16; TEMP 36.2; O2SAT 94
[2023-07-23] MEDS: Aspirin 81 MG TAB.CHEW PO (09:23)
[2023-07-23] MEDS: Multivitamins,Ther W-Minerals Tablet 1 TABLET PO ×2 (09:23→17:02)
[2023-07-23] MEDS: Enoxaparin 40 MG/0.4 ML Syringe SC (09:23)
[2023-07-23] MEDS: Lidocaine 5% Patch 1 PATCH TOPICAL (09:23)
[2023-07-23] MEDS: Cholecalciferol (VIT D3) 25 MCG TABLET (1,000 UNITS) 75 MCG PO (09:23)
[2023-07-23] MEDS: Carvedilol 6.25 MG Tablet PO ×2 (09:23→17:02)
[2023-07-23] MEDS: busPIRone 5 MG Tablet PO ×2 (09:24→22:04)
[2023-07-23] MEDS: hydroCHLOROthiazide 12.5mg 12.5 MG PO (09:24)
[2023-07-23] MEDS: Clotrimazole/Betamethasone 1 Tube 1 APPLIC TOPICAL ×2 (09:24→22:04)
[2023-07-23] MEDS: Tamsulosin HCl 0.4 MG Capsule PO ×2 (09:24→17:02)
[2023-07-23] MEDS: buPROPion (XL) 150 MG TABLET.XL PO (09:24)
[2023-07-23] MEDS: Menthol/Lanolin/Calamine/Znox 113 GM Tube 1 APPLIC TOPICAL ×2 (09:25→22:08)
[2023-07-23] MEDS: Nystatin Powder 15gm Bottle 1 APPLIC TOPICAL ×2 (09:25→22:08)
[2023-07-23] MEDS: Acetaminophen 500 MG Tablet 1000 MG PO (12:16)
[2023-07-23] MEDS: Tuberculin,Purif.prot.deriv. 50 TU/ML Vial 0.1 ML ID (12:17)
--- NOTE | 2023-07-23 15:11 | CASEMGMT ---
Social Work SW contacted patient's to discuss referral for care. [facility] accepted patient for placement for private pay and [facility], [facility] accepted patient with eligibility for LTC. [facility] is unable to accept patient for placement; facility offered alternative referral to [facility] or [facility]. SW inquired about additional referral for placement at [facility] or [facility]. Patient's declined additional referrals. Patient's informed SW that she will be visiting [facility] and [facility] to determine appropriate placement. SW will continue to follow to assist with discharge planning. KOLTON Anand
[2023-07-23 17:04] VITALS: BP 113/62; PULSE 68
[2023-07-23 22:00] VITALS: PULSE 61; RESP 16; O2SAT 93
[2023-07-23] MEDS: Atorvastatin Calcium 20 MG Tablet PO (22:03)
[2023-07-24] MEDS: Multivitamins,Ther W-Minerals Tablet 1 TABLET PO ×2 (10:03→17:51)
[2023-07-24] MEDS: Carvedilol 6.25 MG Tablet PO ×2 (10:03→17:51)
[2023-07-24] MEDS: Cholecalciferol (VIT D3) 25 MCG TABLET (1,000 UNITS) 75 MCG PO (10:03)
[2023-07-24] MEDS: Aspirin 81 MG TAB.CHEW PO (10:03)
[2023-07-24] MEDS: Tamsulosin HCl 0.4 MG Capsule PO ×2 (10:03→17:51)
[2023-07-24] MEDS: Enoxaparin 40 MG/0.4 ML Syringe SC (10:04)
[2023-07-24] MEDS: busPIRone 5 MG Tablet PO ×2 (10:04→22:17)
[2023-07-24] MEDS: hydroCHLOROthiazide 12.5mg 12.5 MG PO (10:04)
[2023-07-24] MEDS: buPROPion (XL) 150 MG TABLET.XL PO (10:04)
[2023-07-24] MEDS: Lidocaine 5% Patch 1 PATCH TOPICAL (10:04)
[2023-07-24] MEDS: Clotrimazole/Betamethasone 1 Tube 1 APPLIC TOPICAL ×2 (10:06→22:18)
[2023-07-24] MEDS: Menthol/Lanolin/Calamine/Znox 113 GM Tube 1 APPLIC TOPICAL ×2 (10:14→22:21)
[2023-07-24] MEDS: Nystatin Powder 15gm Bottle 1 APPLIC TOPICAL ×2 (10:14→22:21)
[2023-07-24 11:31] VITALS: BP 106/63; PULSE 65; RESP 16; TEMP 36.1; O2SAT 92
--- NOTE | 2023-07-24 11:34 | CASEMGMT ---
Social Work SW received notification that the patients [place] insurance has extended coverage for long term facility; NRD 07/31/2023. SW informed patient while in rehab. Patient requested that SW informed who was present at bedside. SW met with patient's at bedside to informed of insurance NRD 07/31/2023. 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 KOLTON Anand
[2023-07-24] MEDS: Atorvastatin Calcium 20 MG Tablet PO (22:17)
[2023-07-25] MEDS: Cholecalciferol (VIT D3) 25 MCG TABLET (1,000 UNITS) 75 MCG PO (08:45)
[2023-07-25] MEDS: Multivitamins,Ther W-Minerals Tablet 1 TABLET PO ×2 (08:45→16:18)
[2023-07-25] MEDS: buPROPion (XL) 150 MG TABLET.XL PO (08:45)
[2023-07-25] MEDS: Carvedilol 6.25 MG Tablet PO ×2 (08:45→16:17)
[2023-07-25] MEDS: hydroCHLOROthiazide 12.5mg 12.5 MG PO (08:45)
[2023-07-25] MEDS: Aspirin 81 MG TAB.CHEW PO (08:45)
[2023-07-25] MEDS: Tamsulosin HCl 0.4 MG Capsule PO ×2 (08:45→16:18)
[2023-07-25] MEDS: Menthol/Lanolin/Calamine/Znox 113 GM Tube 1 APPLIC TOPICAL ×2 (08:46→20:02)
[2023-07-25] MEDS: Enoxaparin 40 MG/0.4 ML Syringe SC (08:46)
[2023-07-25] MEDS: busPIRone 5 MG Tablet PO ×2 (08:46→20:01)
[2023-07-25] MEDS: Clotrimazole/Betamethasone 1 Tube 1 APPLIC TOPICAL ×2 (08:48→20:01)
[2023-07-25] MEDS: Lidocaine 5% Patch 1 PATCH TOPICAL (08:49)
[2023-07-25] MEDS: Nystatin Powder 15gm Bottle 1 APPLIC TOPICAL ×2 (08:49→20:02)
[2023-07-25 15:24] VITALS: BP 102/56; PULSE 51; RESP 18; TEMP 36.4; O2SAT 94
[2023-07-25] MEDS: Acetaminophen 500 MG Tablet 1000 MG PO (16:15)
[2023-07-25] MEDS: cycloBENZAPRine HCl 10 MG Tablet PO (16:16)
[2023-07-25 20:00] VITALS: RESP 16
[2023-07-25] MEDS: Atorvastatin Calcium 20 MG Tablet PO (20:01)
[2023-07-26] MEDS: Senna/Docusate Sodium 1 Tablet PO (04:05)
[2023-07-26 04:43] VITALS: RESP 17
[2023-07-26 09:17] VITALS: BP 95/53; PULSE 71; RESP 17; TEMP 36.8; O2SAT 94
[2023-07-26] MEDS: Multivitamins,Ther W-Minerals Tablet 1 TABLET PO ×2 (09:22→17:48)
[2023-07-26] MEDS: Carvedilol 6.25 MG Tablet PO ×2 (09:22→17:48)
[2023-07-26] MEDS: Cholecalciferol (VIT D3) 25 MCG TABLET (1,000 UNITS) 75 MCG PO (09:22)
[2023-07-26] MEDS: Aspirin 81 MG TAB.CHEW PO (09:22)
[2023-07-26] MEDS: Tamsulosin HCl 0.4 MG Capsule PO ×2 (09:23→17:48)
[2023-07-26] MEDS: Menthol/Lanolin/Calamine/Znox 113 GM Tube 1 APPLIC TOPICAL ×2 (09:23→19:29)
[2023-07-26] MEDS: Lidocaine 5% Patch 1 PATCH TOPICAL (09:23)
[2023-07-26] MEDS: Clotrimazole/Betamethasone 1 Tube 1 APPLIC TOPICAL ×2 (09:23→19:29)
[2023-07-26] MEDS: busPIRone 5 MG Tablet PO ×2 (09:23→19:28)
[2023-07-26] MEDS: Enoxaparin 40 MG/0.4 ML Syringe SC (09:24)
[2023-07-26] MEDS: Nystatin Powder 15gm Bottle 1 APPLIC TOPICAL ×2 (09:24→19:29)
[2023-07-26] MEDS: buPROPion (XL) 150 MG TABLET.XL PO (09:25)
[2023-07-26 11:44] VITALS: BP 100/58; PULSE 75
[2023-07-26] MEDS: hydroCHLOROthiazide 12.5mg 12.5 MG PO (11:45)
[2023-07-26 17:46] VITALS: BP 110/62; PULSE 61
[2023-07-26] MEDS: Atorvastatin Calcium 20 MG Tablet PO (19:28)
[2023-07-27 05:50] VITALS: RESP 16
[2023-07-27] MEDS: Cholecalciferol (VIT D3) 25 MCG TABLET (1,000 UNITS) 75 MCG PO (07:50)
[2023-07-27] MEDS: Multivitamins,Ther W-Minerals Tablet 1 TABLET PO ×2 (07:50→17:19)
[2023-07-27] MEDS: Carvedilol 6.25 MG Tablet PO ×2 (07:50→17:19)
[2023-07-27] MEDS: hydroCHLOROthiazide 12.5mg 12.5 MG PO (07:50)
[2023-07-27] MEDS: Tamsulosin HCl 0.4 MG Capsule PO ×2 (07:50→17:19)
[2023-07-27] MEDS: Aspirin 81 MG TAB.CHEW PO (07:50)
[2023-07-27] MEDS: Enoxaparin 40 MG/0.4 ML Syringe SC (07:51)
[2023-07-27] MEDS: buPROPion (XL) 150 MG TABLET.XL PO (07:51)
[2023-07-27] MEDS: busPIRone 5 MG Tablet PO ×2 (07:52→22:32)
[2023-07-27] MEDS: Nystatin Powder 15gm Bottle 1 APPLIC TOPICAL ×2 (07:58→14:43)
[2023-07-27] MEDS: Lidocaine 5% Patch 1 PATCH TOPICAL (07:58)
[2023-07-27 13:17] VITALS: BP 108/61; PULSE 65; RESP 16; TEMP 36.4; O2SAT 93
[2023-07-27] MEDS: Clotrimazole/Betamethasone 1 Tube 1 APPLIC TOPICAL ×2 (14:42→22:33)
[2023-07-27] MEDS: Menthol/Lanolin/Calamine/Znox 113 GM Tube 1 APPLIC TOPICAL ×2 (14:44→22:33)
[2023-07-27] MEDS: Atorvastatin Calcium 20 MG Tablet PO (22:33)
[2023-07-28 08:10] VITALS: BP 104/62; PULSE 58; RESP 16; TEMP 36.2; O2SAT 94
[2023-07-28] MEDS: Clotrimazole/Betamethasone 1 Tube 1 APPLIC TOPICAL ×2 (08:11→21:41)
[2023-07-28] MEDS: Cholecalciferol (VIT D3) 25 MCG TABLET (1,000 UNITS) 75 MCG PO (08:11)
[2023-07-28] MEDS: hydroCHLOROthiazide 12.5mg 12.5 MG PO (08:12)
[2023-07-28] MEDS: Carvedilol 6.25 MG Tablet PO ×2 (08:12→17:02)
[2023-07-28] MEDS: Enoxaparin 40 MG/0.4 ML Syringe SC (08:12)
[2023-07-28] MEDS: Tamsulosin HCl 0.4 MG Capsule PO ×2 (08:12→17:02)
[2023-07-28] MEDS: Multivitamins,Ther W-Minerals Tablet 1 TABLET PO ×2 (08:12→17:02)
[2023-07-28] MEDS: Aspirin 81 MG TAB.CHEW PO (08:12)
[2023-07-28] MEDS: busPIRone 5 MG Tablet PO ×2 (08:12→21:39)
[2023-07-28] MEDS: Lidocaine 5% Patch 1 PATCH TOPICAL (08:13)
[2023-07-28] MEDS: buPROPion (XL) 150 MG TABLET.XL PO (08:13)
[2023-07-28] MEDS: Menthol/Lanolin/Calamine/Znox 113 GM Tube 1 APPLIC TOPICAL ×2 (08:13→21:43)
[2023-07-28] MEDS: Nystatin Powder 15gm Bottle 1 APPLIC TOPICAL ×2 (08:14→21:43)
[2023-07-28 13:00] VITALS: BMI 39.4
--- NOTE | 2023-07-28 13:40 | MDS.RN ---
Information for the MDS was obtained from review of the clinical record, interview of resident, staff, and direct observation of resident?s care.
[2023-07-28] MEDS: Acetaminophen 500 MG Tablet 1000 MG PO (13:54)
[2023-07-28 17:01] VITALS: BMI 39.5
[2023-07-28] MEDS: Atorvastatin Calcium 20 MG Tablet PO (21:39)
[2023-07-29] MEDS: Carvedilol 6.25 MG Tablet PO ×2 (07:55→17:14)
[2023-07-29] MEDS: Multivitamins,Ther W-Minerals Tablet 1 TABLET PO ×2 (07:55→17:14)
[2023-07-29] MEDS: Aspirin 81 MG TAB.CHEW PO (07:55)
[2023-07-29] MEDS: hydroCHLOROthiazide 12.5mg 12.5 MG PO (07:56)
[2023-07-29] MEDS: Cholecalciferol (VIT D3) 25 MCG TABLET (1,000 UNITS) 75 MCG PO (07:56)
[2023-07-29] MEDS: Tamsulosin HCl 0.4 MG Capsule PO ×2 (07:56→17:14)
[2023-07-29] MEDS: Lidocaine 5% Patch 1 PATCH TOPICAL (07:56)
[2023-07-29] MEDS: busPIRone 5 MG Tablet PO ×2 (07:56→21:02)
[2023-07-29] MEDS: Clotrimazole/Betamethasone 1 Tube 1 APPLIC TOPICAL ×2 (07:57→21:02)
[2023-07-29] MEDS: Enoxaparin 40 MG/0.4 ML Syringe SC (07:57)
[2023-07-29] MEDS: buPROPion (XL) 150 MG TABLET.XL PO (07:58)
[2023-07-29] MEDS: Menthol/Lanolin/Calamine/Znox 113 GM Tube 1 APPLIC TOPICAL ×2 (08:04→21:06)
[2023-07-29] MEDS: Nystatin Powder 15gm Bottle 1 APPLIC TOPICAL ×2 (08:05→21:07)
[2023-07-29 14:11] VITALS: BP 107/70; PULSE 60; RESP 12; TEMP 36.6; O2SAT 95
[2023-07-29] MEDS: Atorvastatin Calcium 20 MG Tablet PO (21:02)
[2023-07-29 22:00] VITALS: PULSE 68; RESP 16; O2SAT 94
[2023-07-30 05:49] LABS: Absolute Lymphocyte Count 2.04 X10^3/uL (0.83-4.51); Absolute Neutrophil Count 4.3 X10^3/uL (2.0-7.7); Basophil# 0.04 X10^3/uL; Basophil% 0.6 % (0-1); Eosinophil# 0.17 X10^3/uL; Eosinophils% 2.4 % (0-5); Hematocrit 37.8 % (40-54); Hemoglobin 12.1 g/dL (13.0-16.5); Lymphocyte # 2.04 X10^3/ul (0.83-4.51); Lymphocyte % 28.6 % (19-41); Mean Corpuscular Hgb 27.9 pg (27.0-32.0); Mean Corpuscular Volume 87.3 fL (80-94); Mean Platelet Vol. 10.6 fl (6.2-12.0); Monocyte# 0.62 X10^3/uL; Monocyte% 8.7 % (0-10); NRBC Flagged by Analyzer 0 % (0-5); Neutrophil # 4.25 X10^3/uL (2.7-7.7); Neutrophil % 59.4 % (47-70); Platelet Count 217 K/mm3 (150-450); RBC Distribution Width CV 13.6 % (11.6-14.6); RBC Distribution Width SD 43.2 fl (35.1-43.9); Red Blood Count 4.33 M/mm3 (4.6-6.2); White Blood Count 7.1 K/mm3 (4.4-11.0)
[2023-07-30 06:29] LABS: Anion Gap 4 (5-15); BUN 15 mg/dL (7-18); BUN/Creat Ratio 17.5 RATIO (10-20); Calcium,Total 8.8 mg/dL (8.5-10.1); Chloride 100 mmol/L (98-107); Creatinine, Serum 0.86 mg/dL (0.70-1.30); EST Glomerular Filtration Rate 93 mL/min (>60); Est Glom Filt Rate - Afr Amer 112 mL/min (>60); Estimated Creatinine Clearance 99.97 ml/min; Glucose 100 mg/dL (74-106); Potassium 3.3 mmol/L (3.5-5.1); Sodium Level 135 mmol/L (136-145)
[2023-07-30] MEDS: Menthol/Lanolin/Calamine/Znox 113 GM Tube 1 APPLIC TOPICAL ×2 (10:10→22:12)
[2023-07-30 10:11] VITALS: BP 112/62; PULSE 76; RESP 18; O2SAT 93
[2023-07-30] MEDS: Aspirin 81 MG TAB.CHEW PO (10:13)
[2023-07-30] MEDS: Cholecalciferol (VIT D3) 25 MCG TABLET (1,000 UNITS) 75 MCG PO (10:13)
[2023-07-30] MEDS: Carvedilol 6.25 MG Tablet PO ×2 (10:13→18:49)
[2023-07-30] MEDS: busPIRone 5 MG Tablet PO ×2 (10:14→22:13)
[2023-07-30] MEDS: Tamsulosin HCl 0.4 MG Capsule PO ×2 (10:14→18:49)
[2023-07-30] MEDS: Multivitamins,Ther W-Minerals Tablet 1 TABLET PO ×2 (10:14→18:49)
[2023-07-30] MEDS: Lidocaine 5% Patch 1 PATCH TOPICAL (10:14)
[2023-07-30] MEDS: Enoxaparin 40 MG/0.4 ML Syringe SC (10:15)
[2023-07-30] MEDS: Clotrimazole/Betamethasone 1 Tube 1 APPLIC TOPICAL ×2 (10:15→22:14)
[2023-07-30] MEDS: buPROPion (XL) 150 MG TABLET.XL PO (10:16)
[2023-07-30] MEDS: Nystatin Powder 15gm Bottle 1 APPLIC TOPICAL ×2 (10:21→22:14)
[2023-07-30] MEDS: Potassium Chloride Oral Tablet 20 MEQ PO (10:21)
[2023-07-30 13:11] VITALS: TEMP 36.7
[2023-07-30 16:00] VITALS: RESP 18
[2023-07-30 18:51] VITALS: BP 111/68; PULSE 56; RESP 18
[2023-07-30] MEDS: Atorvastatin Calcium 20 MG Tablet PO (22:14)
[2023-07-31 06:16] LABS: Anion Gap 5 (5-15); BUN 18 mg/dL (7-18); Calcium,Total 8.9 mg/dL (8.5-10.1); Chloride 105 mmol/L (98-107); EST Glomerular Filtration Rate 88 mL/min (>60); Est Glom Filt Rate - Afr Amer 106 mL/min (>60); Estimated Creatinine Clearance 95.52 ml/min; Glucose 107 mg/dL (74-106); Potassium 3.4 mmol/L (3.5-5.1); Sodium Level 138 mmol/L (136-145)
[2023-07-31] MEDS: Aspirin 81 MG TAB.CHEW PO (10:19)
[2023-07-31] MEDS: Carvedilol 6.25 MG Tablet PO ×2 (10:19→17:15)
[2023-07-31] MEDS: Potassium Chloride Oral Tablet 20 MEQ PO (10:20)
[2023-07-31] MEDS: Cholecalciferol (VIT D3) 25 MCG TABLET (1,000 UNITS) 75 MCG PO (10:21)
[2023-07-31] MEDS: Multivitamins,Ther W-Minerals Tablet 1 TABLET PO ×2 (10:21→17:15)
[2023-07-31] MEDS: busPIRone 5 MG Tablet PO ×2 (10:22→21:59)
[2023-07-31] MEDS: Tamsulosin HCl 0.4 MG Capsule PO ×2 (10:22→17:15)
[2023-07-31] MEDS: Menthol/Lanolin/Calamine/Znox 113 GM Tube 1 APPLIC TOPICAL ×2 (10:22→21:58)
[2023-07-31] MEDS: Lidocaine 5% Patch 1 PATCH TOPICAL (10:23)
[2023-07-31] MEDS: Clotrimazole/Betamethasone 1 Tube 1 APPLIC TOPICAL ×2 (10:23→22:00)
[2023-07-31] MEDS: buPROPion (XL) 150 MG TABLET.XL PO (10:24)
[2023-07-31] MEDS: Enoxaparin 40 MG/0.4 ML Syringe SC (10:24)
[2023-07-31] MEDS: Nystatin Powder 15gm Bottle 1 APPLIC TOPICAL ×2 (10:25→22:06)
[2023-07-31] MEDS: Acetaminophen 500 MG Tablet 1000 MG PO (10:26)
--- NOTE | 2023-07-31 13:33 | DS.PCM_ITS ---
Providers Date of Admission: 07/15/23 Primary Care Physician: Dr. Marilin Gold MD Reason For Visit: UTI,CRONIC PARANASAL SINUS DISEASE Diagnosis Discharge Diagnosis (1) Debility: Status: Acute Code(s): R53.81 - Other malaise (2) Fall: Status: Inactive Code(s): W19.XXXA - Unspecified fall, initial encounter Qualifiers: Encounter type: initial encounter Qualified Code(s): W19.XXXA - Unspecified fall, initial encounter (3) UTI (urinary tract infection): Status: Resolved Code(s): N39.0 - Urinary tract infection, site not specified Qualifiers: Urinary tract infection type: acute cystitis Hematuria presence: with hematuria Qualified Code(s): N30.01 - Acute cystitis with hematuria (4) Sinusitis: Status: Resolved Code(s): J32.9 - Chronic sinusitis, unspecified Qualifiers: Sinusitis location: unspecified location Chronicity: chronic Qualified Code(s): J32.9 - Chronic sinusitis, unspecified (5) Acute encephalopathy: Status: Acute Code(s): G93.40 - Encephalopathy, unspecified (6) Right leg weakness: Status: Acute Code(s): R29.898 - Other symptoms and signs involving the musculoskeletal system (7) HLD (hyperlipidemia): Status: Acute Code(s): E78.5 - Hyperlipidemia, unspecified (8) Coronary artery disease: Status: Acute Code(s): I25.10 - Atherosclerotic heart disease of [place] coronary artery without angina pectoris (9) Hypertension: Status: Chronic Code(s): I10 - Essential (primary) hypertension Qualifiers: Hypertension type: essential hypertension Qualified Code(s): I10 - Essential (primary) hypertension (10) Depression: Status: Acute Code(s): F32.A - Depression, unspecified (11) Anxiety: Status: Acute Code(s): F41.9 - Anxiety disorder, unspecified (12) BPH (benign prostatic hyperplasia): Status: Acute Code(s): N40.0 - Benign prostatic hyperplasia without lower urinary tract symptoms (13) Hypokalemia: Status: Acute Code(s): E87.6 - Hypokalemia (14) History of stroke: Status: Acute Code(s): Z86.73 - Personal history of transient ischemic attack (TIA), and cerebral infarction without residual deficits Plan 73 year old male with blow past medical history hospitalized for falls, UTI, complicated by sinusitis, encephalopathy, right lower extremity weakness, admitted to TCU with debility, here for rehabilitation, strengthening, prior to discharge home with . * Debility - PT/OT. * Pain - Tylenol 1000mg q6 prn pain (1-10), Lidoderm 1 patch td daily. * Bowel - senna/colace 1 tablet bid prn, Magnesium citrate 300ml daily prn. * Adult immunization - Admnister pneumonia vaccine, covid vaccine, flu vaccine as appropriate. * DVT prophylaxis - Lovenox 40mg sc daily. * Coronary artery disease - Coreg 6.25mg bid, Aspirin 81mg daily. * Stroke - Aspirin 81mg daily. * Hyperlipidemia - Atorvastatin 20mg qhs. * Depression - Bupropion XL 150mg daily, stable chronic longterm use, GDR not recommended. * Anxiety - Buspar 5mg bid. * Klebsiella Aerogenes UTI - Cefdinir 300mg bid thru 07/20/2023. * Vitamin D deficiency - D3 75mcg daily. * Muscle spasm - Flexeril 10mg tid prn. * Nutrition - Ensulre Plus 120ml tidcm, MVI 1 tablet daily. * Hypertension - Coreg 6.25mg bid, HCTZ 12.5mg daily. * BPH - Tamsulosin 0.4mg bid. Medications at Discharge Home Medications snrmywiqdbcg-wsqyyitj-mtwyig tablet (Multivitamin 50 Plus tablet) 1 ea PO BID momin pplement 04/09/16 aspirin 81 mg chewable tablet 81 mg PO DAILY@0800 heart 04/15/16 atorvastatin 80 mg tablet (Lipitor) 20 mg PO QHS cholesterol 02/17/17 cholecalciferol (vitamin D3) 25 mcg (1,000 unit) capsule (Vitamin D3) 3,000 unit PO DAILY Supplement 02/17/17 bupropion HCl 150 mg 24 hr tablet, extended release 150 mg PO DAILY mental health 08/09/17 buspirone 5 mg tablet 5 mg PO BID mental health 08/27/21 tamsulosin 0.4 mg capsule 0.4 mg PO BID prostate 08/27/21 carvedilol 6.25 mg tablet 6.25 mg PO BID blood pressure 10/29/23 cyclobenzaprine 10 mg tablet 10 mg PO TID PRN PRN muscle spasm 07/10/23 acetaminophen 500 mg tablet 1,000 mg (2 x 500 mg) PO Q6H PRN PRN Pain Score 1-10 #0 tabs 07/31/23 lidocaine 5 % topical patch 1 patch topical DAILY 30 days #30 ea 07/31/23 potassium chloride 20 mEq tablet,extended release(part/cryst) 20 meq PO DAILYCM 30 days #30 tabs 07/31/23 Hospital Course Operations None Procedures None Summary of Care Provided Minutes Spent on Discharge: 35 Hospital Course: 73 year old male with blow past medical history hospitalized for falls, UTI, complicated by sinusitis, encephalopathy, right lower extremity weakness, admitted to TCU with debility, here for rehabilitation, strengthening, prior to discharge home with . Abdominal aortic aneurysm - 3.2cm, recommend imaging annually. Discharge home with 08/03/2023, CCN. Physical Exam Const alert General Appearance: cooperative HEENT normocephalic Eyes PERRL and EOMs intact bilaterally Neck supple, no JVD and no carotid bruits Resp normal respiratory effort, normal air movement and clear to auscultation bilaterally Cardio regular rate and regular rhythm GI normal to inspection, nondistended, normoactive bowel sounds, non-tender and non-distended Extremity normal capillary refill General Extremity: Negative for edema Skin no rashes or lesions noted General Skin Exam: no breakdown Psych affect normal Appearance: appropriate Weight / BMI Weight Weight: 124.965 kg Body Mass Index (BMI) 39.5 ABG / Lab / Microbiology Data 07/30/23 05:41 07/31/23 05:39 Laboratory: Laboratory Results - last 24 hr 07/31/23 05:39: Sodium 138, Potassium 3.4 L, Chloride 105, Carbon Dioxide 28.0, Anion Gap 5, BUN 18, Creatinine 0.90, Estim Creat Clear Calc 95.52, Est GFR ( MDRD) Af Amer 106, Est GFR (MDRD) Non-Af 88, BUN/Creatinine Ratio 20.0, Glucose 107 H, Calcium 8.9 D/C Instructions Discharge Diet: No restrictions Discharge Activity: Return to Normal Activity, May Shower and Use Walker Weight Bearing Status: Weight bearing as tolerated Call your doctor if you observe: Fever of 101 or Higher, Inability to urinate, Inability to have a bowel movement, Shortness of breath, Dizziness, Fainting spells, Swelling in the ankles, Chest pain and Uncontrolled pain Additional Instructions: Discharge home with 08/03/2023, CCN. Meaningful Use Info Meaningful Use Meaningful Use Diagnoses (Choose all that apply): None applicable Ischemic Stroke Statin Dosing Therapy Reference: STATIN DOSE THERAPY REFERENCE: * Patients > 75 years receive moderate or high dose statin therapy. * Patients 75 years or YOUNGER should receive HIGH intensity statin dose unless contraindicated. You will be required to document reason for non-treatment if statin daily dose does not meet guidelines. HIGH DOSE STATIN THERAPY DAILY Atorvastatin > than or = to 40 mg Rosuvastatin > than or = to 20 mg Amlodipine + Atorvastatin > than or = to 2.5/40 mg Ezetimibe + Simvastatin 10/80 mg Simvastatin 80mg Discharge Plan Admission Admit Date/Time: 07/15/23 12:44 Primary Reason for Your Visit: Debility. Attending Provider: Palomo Anglin Chi Primary Care Provider: Marilin Gold Instructions Additional Instructions / Restrictions: Discharge home with 08/03/2023, CCN. Discharge Orders/Prescriptions Prescriptions: New acetaminophen 500 mg Tablet 1,000 mg PO Q6H PRN PRN (Reason: Pain Score 1-10) Qty: 0 0RF lidocaine 5 % Adhesive Patch,Medicated 1 patch topical DAILY 30 Days Qty: 30 0RF Protocol: *Topical Application Instructions APPLICATION INSTRUCTIONS: to affected area potassium chloride 20 mEq Tablet,Er Particles/Crystals 20 meq PO DAILYCM 30 Days Qty: 30 0RF Continued Multivitamin 50 Plus 1 EACH tablet 1 ea PO BID Patient Comments: Supplement aspirin 81 MG tablet,chewable 81 mg PO DAILY@0800 Patient Comments: blood thinner cholecalciferol (vitamin D3) [Vitamin D3] 1,000 UNIT capsule 3,000 unit PO DAILY atorvastatin [Lipitor] 80 MG tablet 20 mg PO QHS bupropion HCl 150 MG tablet extended release 24 hr 150 mg PO DAILY buspirone 5 mg Tablet 5 mg PO BID tamsulosin 0.4 mg Capsule 0.4 mg PO BID carvedilol 6.25 mg tablet 6.25 mg PO BID Patient Comments: TAKE 1 TABLET BY MOUTH TWICE A DAY cyclobenzaprine 10 mg tablet 10 mg PO TID PRN PRN (Reason: muscle spasm) Discontinued hydrochlorothiazide 12.5 MG capsule 12.5 mg PO DAILY atorvastatin 40 mg tablet 20 mg PO DAILY lidocaine [Lidoderm] 5 % adhesive patch,medicated 1 patch topical DAILY Qty: 15 0RF Rx Instructions: leave on most painful area for up to 12 hrs cefdinir 300 mg capsule 300 mg PO BID Qty: 10 0RF Referrals / Follow Up: Marilin Gold MD [Primary Care Provider] - Within 1 Week Disposition Disposition (needs filled in before D/C Order can be placed): Home, Self Care
--- NOTE | 2023-07-31 13:33 | CASEMGMT ---
Social Work Pt's [employer] issued a Notice of Medicare Non Coverage with 08/02/23 being last covered day of services. This worker telephoned patient's and updated her on same. stated patient is on a waiting list for a [facility] covered retirement so she will plan to take him home for now until a bed becomes available for him. declined home health care services and states she knows what exercises to do with him. stated they are connected with a program through [facility] where a girl comes out to the house regularly and will continue with this. [employer] met with patient and reviewed [employer] letter and explained appeal rights. Pt signed form. SW also explained appeal rights to and she indicated they would not be appealing. notified of DC plans. Pt will DC home on 08/03/23. Beatriz CAREY
[2023-07-31 15:30] VITALS: BP 93/61; PULSE 90; RESP 16; TEMP 36.3; O2SAT 96
[2023-07-31 22:00] VITALS: O2SAT 95
[2023-07-31] MEDS: Atorvastatin Calcium 20 MG Tablet PO (22:00)
[2023-08-01] MEDS: Carvedilol 6.25 MG Tablet PO ×2 (07:53→18:34)
[2023-08-01] MEDS: Aspirin 81 MG TAB.CHEW PO (07:53)
[2023-08-01] MEDS: Potassium Chloride Oral Tablet 20 MEQ PO (07:54)
[2023-08-01] MEDS: busPIRone 5 MG Tablet PO ×2 (07:54→20:49)
[2023-08-01] MEDS: Tamsulosin HCl 0.4 MG Capsule PO ×2 (07:54→18:35)
[2023-08-01] MEDS: Multivitamins,Ther W-Minerals Tablet 1 TABLET PO ×2 (07:54→18:35)
[2023-08-01] MEDS: Cholecalciferol (VIT D3) 25 MCG TABLET (1,000 UNITS) 75 MCG PO (07:54)
[2023-08-01] MEDS: Enoxaparin 40 MG/0.4 ML Syringe SC (07:55)
[2023-08-01] MEDS: Lidocaine 5% Patch 1 PATCH TOPICAL (07:55)
[2023-08-01] MEDS: buPROPion (XL) 150 MG TABLET.XL PO (07:56)
[2023-08-01] MEDS: Nystatin Powder 15gm Bottle 1 APPLIC TOPICAL ×2 (07:59→20:50)
[2023-08-01] MEDS: Menthol/Lanolin/Calamine/Znox 113 GM Tube 1 APPLIC TOPICAL ×2 (07:59→20:50)
[2023-08-01] MEDS: Acetaminophen 500 MG Tablet 1000 MG PO (14:07)
[2023-08-01 15:04] VITALS: BP 105/51; PULSE 52; RESP 16; TEMP 36.6; O2SAT 92
[2023-08-01] MEDS: Atorvastatin Calcium 20 MG Tablet PO (20:49)
[2023-08-01] MEDS: Clotrimazole/Betamethasone 1 Tube 1 APPLIC TOPICAL (20:49)
[2023-08-02 07:42] LABS: Anion Gap 5 (5-15); BUN 16 mg/dL (7-18); BUN/Creat Ratio 20.6 RATIO (10-20); Calcium,Total 8.6 mg/dL (8.5-10.1); Chloride 106 mmol/L (98-107); Creatinine, Serum 0.78 mg/dL (0.70-1.30); EST Glomerular Filtration Rate 104 mL/min (>60); Est Glom Filt Rate - Afr Amer 126 mL/min (>60); Estimated Creatinine Clearance 107.46 ml/min; Glucose 89 mg/dL (74-106); Potassium 3.7 mmol/L (3.5-5.1); Sodium Level 138 mmol/L (136-145)
[2023-08-02 09:40] VITALS: BP 112/66; PULSE 71
[2023-08-02] MEDS: Aspirin 81 MG TAB.CHEW PO (09:40)
[2023-08-02] MEDS: Cholecalciferol (VIT D3) 25 MCG TABLET (1,000 UNITS) 75 MCG PO (09:41)
[2023-08-02] MEDS: Potassium Chloride Oral Tablet 20 MEQ PO (09:41)
[2023-08-02] MEDS: Multivitamins,Ther W-Minerals Tablet 1 TABLET PO ×2 (09:41→17:20)
[2023-08-02] MEDS: Carvedilol 6.25 MG Tablet PO (09:41)
[2023-08-02] MEDS: Tamsulosin HCl 0.4 MG Capsule PO ×2 (09:42→17:20)
[2023-08-02] MEDS: buPROPion (XL) 150 MG TABLET.XL PO (09:42)
[2023-08-02] MEDS: Enoxaparin 40 MG/0.4 ML Syringe SC (09:42)
[2023-08-02] MEDS: Menthol/Lanolin/Calamine/Znox 113 GM Tube 1 APPLIC TOPICAL ×2 (09:43→20:15)
[2023-08-02] MEDS: busPIRone 5 MG Tablet PO ×2 (09:43→20:14)
[2023-08-02] MEDS: Lidocaine 5% Patch 1 PATCH TOPICAL (09:43)
[2023-08-02] MEDS: Nystatin Powder 15gm Bottle 1 APPLIC TOPICAL ×2 (09:43→20:15)
[2023-08-02 13:00] VITALS: BP 106/58; PULSE 54; RESP 18; TEMP 36.6; O2SAT 97
[2023-08-02 14:07] VITALS: BP 104/53; PULSE 62; RESP 18; TEMP 36.5; O2SAT 90
[2023-08-02 14:27] VITALS: PULSE 49; RESP 16; O2SAT 96
[2023-08-02] MEDS: Ipratropium/Albuterol Sulfate 3 ML AMPUL.NEB INHALATION (14:27)
[2023-08-02 20:00] VITALS: PULSE 50; RESP 16; O2SAT 94
[2023-08-02] MEDS: Atorvastatin Calcium 20 MG Tablet PO (20:14)
[2023-08-03 06:21] VITALS: PULSE 52; RESP 16; O2SAT 95
--- NOTE | 2023-08-03 07:25 | RAD_ITS ---
INDICATION: aspiration EXAMINATION/TECHNIQUE: X-RAY - XR Chest 2 Views COMPARISON: 07/10/2023 FINDINGS: LINES/DEVICES: None. LUNGS: Patchy opacity in the right middle lobe. No consolidation. No pneumothorax. MEDIASTINUM: Unremarkable. CARDIAC SILHOUETTE: Not enlarged. BONES AND SOFT TISSUES: No acute abnormalities. Degenerative changes of the dorsal spine. RAD/Chest PA and Lateral IMPRESSION: Right middle lobe infiltrate or atelectasis. Electronically Signed: Morena James MD at 7:57 EDT ,
[2023-08-03] MEDS: Carvedilol 6.25 MG Tablet PO (07:43)
[2023-08-03] MEDS: Aspirin 81 MG TAB.CHEW PO (07:43)
[2023-08-03] MEDS: Cholecalciferol (VIT D3) 25 MCG TABLET (1,000 UNITS) 75 MCG PO (07:44)
[2023-08-03] MEDS: Multivitamins,Ther W-Minerals Tablet 1 TABLET PO (07:44)
[2023-08-03] MEDS: Tamsulosin HCl 0.4 MG Capsule PO (07:44)
[2023-08-03] MEDS: busPIRone 5 MG Tablet PO (07:44)
[2023-08-03] MEDS: Potassium Chloride Oral Tablet 20 MEQ PO (07:44)
[2023-08-03] MEDS: Enoxaparin 40 MG/0.4 ML Syringe SC (07:45)
[2023-08-03] MEDS: buPROPion (XL) 150 MG TABLET.XL PO (07:45)
[2023-08-03] MEDS: Lidocaine 5% Patch 1 PATCH TOPICAL (07:45)
[2023-08-03] MEDS: Nystatin Powder 15gm Bottle 1 APPLIC TOPICAL (07:47)
[2023-08-03] MEDS: Menthol/Lanolin/Calamine/Znox 113 GM Tube 1 APPLIC TOPICAL (07:48)
--- NOTE | 2023-08-03 11:06 | NURSING ---
Patient received chest xray this AM after choking episode yesterday and results showed right infiltrate or atelectasis. Dr. Anglin made aware and NO for Doxycycline for pneumonia that was called into patient's pharmacy and added to discharge information. Patient and made aware and information booklet provided and reviewed about pneumonia. and patient denies further questions at this time.
--- NOTE | 2023-08-03 11:08 | CASEMGMT ---
Social Work SW met with patient briefly prior to discharge. Patient anticipates discharge home with ; patient is awaiting placement with [facility] support. Patient has additional in home care via and private duty care. Patient denies any concerns at this time. Patient's provided transportation to home Discharge: Home 08/03/23
== END 2023-08-03 11:00 | disposition home or self-care (01) | DRG 689 ==
PROVIDERS: Admitting Provider Family Medicine Geriatric Medicine; PCP Family Medicine; Visit Provider Family Medicine Geriatric Medicine
DX: N30.01 Acute cystitis with hematuria (principal); J69.0 Pneumonitis due to inhalation of food and vomit; G93.40 Encephalopathy, unspecified; I10 Essential (primary) hypertension; F32.A Depression, unspecified; E55.9 Vitamin D deficiency, unspecified; I25.10 Atherosclerotic heart disease of native coronary artery without angina pectoris; E78.5 Hyperlipidemia, unspecified; F41.9 Anxiety disorder, unspecified; J32.9 Chronic sinusitis, unspecified; I71.40 Abdominal aortic aneurysm, without rupture, unspecified; N40.0 Benign prostatic hyperplasia without lower urinary tract symptoms; R29.898 Other symptoms and signs involving the musculoskeletal system; Z87.891 Personal history of nicotine dependence; B96.1 Klebsiella pneumoniae [K. pneumoniae] as the cause of diseases classified elsewhere; Z79.82 Long term (current) use of aspirin; Z79.899 Other long term (current) drug therapy; R53.81 Other malaise; Z91.81 History of falling; Z23 Encounter for immunization
CPT/HCPCS: 36415; 71046; 80048; 80061; 85025; 90677; 92507; 92523; 94640; 97110; 97116; 97162; 97166; 97530; 97535